=== PATIENT | male | born 1950 | race Caucasian/White ===

== ENCOUNTER 2017-02-12 17:08 | Emergency (ER) | payer OTHER ==
[~2017-02-12] VITALS: Ht 177.8 cm; Wt 109.1 kg
[~2017-02-12 17:08] MED LIST: ALBU1AER9 INH; CALC1TAB62 PO; CHOL20009 PO; GABA-113 PO; GLC/500 PO; METF500T PO; NIAC1TAB56 PO; OMEG10002 PO; OMEP20CA59 PO; RXC5 PO; SIMV20TA5 PO; SITA25TA PO; SULI200T PO; TNR25 PO
[2017-02-12 17:13] VITALS: TEMP 36.9; Ht 177.8 cm; Wt 109.1 kg
[2017-02-12] MEDS ORDERED: ALBUT/IPRATROP 3MG/0.5MG NEB 3 ML VIAL INH STA (17:38)
[2017-02-12] MEDS ORDERED: ASPI81TA28 PO (17:43)
[2017-02-12 18:05] LABS: BASO % 0.5 %; BASO ABS # 0.03 K/uL (0-0.2); COMPLETE YES; EOS % 1.8 %; HEMATOCRIT 40.9 % (42-52); IG% 0.2 %; LYMPH % 32.6 %; LYMPH ABS # 2.03 K/uL (1.2-3.4); MEAN CELL VOLUME 89.7 fL (80-100); MEAN CORPUSCULAR HGB CONC 35.7 g/dl (32-36); MEAN PLATELET VOLUME 9.4 fL (7.4-10.4); MONO % 21.5 %; NEUT % 43.4 %; PLATELET COUNT 166 K/uL (130-400); RED BLOOD COUNT 4.56 M/uL (4.7-6.1); WHITE BLOOD COUNT 6.23 K/uL (4.8-10.8)
[2017-02-12 18:17] LABS: PROTHROMBIN TIME (PATIENT) 10.7 SECONDS (9.0-12.0)
--- NOTE | 2017-02-12 18:20 | DIAGNOSTIC IMAGING REPORT ---
SINGLE VIEW CHEST CLINICAL HISTORY: Dyspnea. FINDINGS: An AP, portable, upright chest radiograph is compared to study dated 02/07/2016 and correlated with chest CT dated 08/09/2016. The examination is degraded by portable technique, large body habitus, and patient rotation. The heart is top normal for projection. The mediastinal contour is within normal limits. Chronic interstitial thickening is unchanged. No airspace consolidation or pleural effusion is identified. No pneumothorax is seen. The bony thorax is grossly intact. IMPRESSION: No active disease in the chest. Electronically signed by: Beto Brand M.D. 02/12/2017 6:18 PM Dictated Date/Time: 02/12/2017 6:17 PM
[2017-02-12 18:22] LABS: ALT/SGPT 36 U/L (12-78); BLOOD UREA NITROGEN 20 mg/dl (7-18); BUN/CREATININE RATIO 18.1 (10-20); CALCIUM 9.7 mg/dl (8.5-10.1); CARBON DIOXIDE 28 mmol/L (21-32); CHLORIDE 103 mmol/L (98-107); GLUCOSE 118 mg/dl (70-99); POTASSIUM 3.9 mmol/L (3.5-5.1); SODIUM 138 mmol/L (136-145)
[2017-02-12 18:27] LABS: ALB/GLOB RATIO 1.2 (0.9-2); ALKALINE PHOSPHATASE 56 U/L (45-117); AST/SGOT 23 U/L (15-37)
[2017-02-12] MEDS ORDERED: OPTIRAY 320 IV PRN (18:45)
--- NOTE | 2017-02-12 19:02 | DIAGNOSTIC IMAGING REPORT ---
CT ANGIOGRAM OF THE CHEST CLINICAL HISTORY: Dyspnea. COMPARISON STUDY: Chest x-ray dated 02/04/2017. Chest CT scans dated 08/09/2016, 01/10/2015, and 10/25/2013. TECHNIQUE: Following the IV administration of 102 cc of Optiray 320, CT angiogram of the chest was performed from the upper abdomen to the thoracic inlet utilizing the pulmonary embolus protocol. Images are reviewed in the axial, sagittal, and coronal planes. 3-D MIPS images are created and assessed. IV contrast was administered without complication. CT DOSE: 577.43 mGy.cm FINDINGS: Thyroid: Imaged portions of the thyroid gland are normal in size and attenuation. A 1.9 cm low-attenuation nodule is again suggested in the right lobe. Thoracic aorta: The thoracic aorta is normal in caliber and demonstrates standard 3-vessel arch anatomy. No dissection is seen. Pulmonary vasculature: The pulmonary trunk is normal in caliber. There are no filling defects identified in main, lobar, or segmental pulmonary branches to suggest pulmonary embolus. Heart: The heart is mildly enlarged and without pericardial effusion. Lungs and pleural spaces: Evaluation of the lung parenchyma is degraded by respiratory motion artifact. Postoperative change and suture material is again noted at the right lung base. A 2 mm nodule in the lingula seen on image #127 is unchanged dating back to 2012 and of doubtful significance. No new or concerning pulmonary nodule is identified. No airspace consolidation or pleural effusion is seen. Minimal dependent atelectasis is observed. The trachea and central airways appear clear. Mediastinum: There is no mediastinal lymphadenopathy Yadira: Clear. Axillae: There is no axillary lymphadenopathy. Upper abdomen: A small hiatal hernia is noted. There is evidence of hepatic steatosis. A 2.3 cm left adrenal adenoma is unchanged. Skeletal structures: The skeletal structures are osteopenic. There are healed right-sided rib fractures. No lytic or blastic bony lesions are seen. IMPRESSION: 1. There is no evidence of pulmonary embolus in the main, lobar, or segmental pulmonary arteries. 2. Cardiomegaly 3. There is no airspace consolidation or pleural effusion. 4. Postoperative change is again noted at the right lung base. 5. Hepatic steatosis. Electronically signed by: Beto Brand M.D. 02/12/2017 7:00 PM Dictated Date/Time: 02/12/2017 6:53 PM
[2017-02-12 19:12] VITALS: BP 122/87; PULSE 92; O2SAT 94
--- NOTE | 2017-02-12 19:14 | EMERGENCY ROOM VISIT NOTE ---
History Report prepared by Melany: Terri Patton Under the Supervision of: Dr. Reg Edgar D.O. First contact with patient: 17:34 Chief Complaint: RESPIRATORY PROBLEMS Stated Complaint: HARD TO BREATH, COUGH Nursing Triage Summary: pt started with cough yesterday, cont today, having some sob with it. cough non productive, no c/o cp History of Present Illness The patient is a 66 year old male who presents to the Emergency Room with complaints of persistent breathing difficulties that began today. The patient states that yesterday he started with a sore throat and a nonproductive cough. He states that he has a history of having nodules removed from his lungs one year ago, but denies any history of COPD or asthma. The patient states that he noticed left leg pain yesterday, but states that it had subsided. He denies any fever. 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 Source of History: patient Onset: today Position: other (global) Quality: other (breathing difficulties) Timing: other (persistent) Associated Symptoms: + cough, + sorethroat, No fevers Review of Systems See HPI for pertinent positives & negatives. A total of 10 systems reviewed and were otherwise negative. Past Medical & Surgical Medical Problems: (1) Diabetes mellitus (2) HTN (hypertension) (3) Hyperlipidemia (4) Mass of lung (5) Osteoarthritis of right knee Family History Diabetes mellitus Hypertension Social History Smoking Status: Former Smoker Alcohol Use: none Marital Status: Housing Status: lives with family Occupation Status: employed Current/Historical Medications Scheduled Aspirin (Aspirin Ec), 81 MG PO DAILY Atenolol (Atenolol), 25 MG PO QPM Calcium & Phosphorus W/ Vitami (Calcium), 2 TAB PO QPM Cholecalciferol (Vitamin D), 2,000 INTUNIT PO BID Gabapentin (Neurontin), 300 MG PO QPM Metformin Hcl (Glucophage), 500 MG PO QAM Metformin Hcl (Glucophage), 1,000 MG PO HS Niacin (Antihyperlipidemic) (Niacin Er), 1,000 MG PO HS [place]-3 Fatty Acids (Fish Oil), 3,000 MG PO HS Omeprazole (Prilosec), 20 MG PO HS Simvastatin (Zocor), 20 MG PO QPM Sitagliptin (Januvia), 100 MG PO QPM Allergies Coded Allergies: Penicillins (Verified Allergy, Severe, throat swelling, hives, 02/12/17) Fenofibrate (Verified Allergy, Unknown, HIVES, 02/12/17) Physical Exam Vital Signs Date Time Temp Pulse Resp B/P Pulse Ox O2 Delivery O2 Flow Rate FiO2 02/12/17 19:12 92 18 122/87 94 Room Air 02/12/17 18:02 100 02/12/17 17:33 Room Air 02/12/17 17:13 36.9 97 18 135/93 93 Room Air Physical Exam CONSTITUTIONAL/VITAL SIGNS: Reviewed / noted above. GENERAL: Non-toxic in appearance. INTEGUMENTARY: Warm, dry, and [place]. HEAD: Normocephalic. EYES: without scleral icterus or trauma. ENT/OROPHARYNX: clear and moist. LYMPHADENOPATHY/NECK: Is supple without lymphadenopathy or meningismus. RESPIRATORY: Lungs clear and equal. CARDIOVASCULAR: Regular rate and rhythm. GI/ABDOMEN: Soft and nontender. No organomegaly or pulsatile mass. No rebound or guarding. Normal bowel sounds. EXTREMITIES: Warm and well perfused. BACK: No CVA tenderness. NEUROLOGICAL: Intact without focal deficits. PSYCHIATRIC: normal affect. MUSCULOSKELETAL: Normally developed with good muscle tone. Medical Decision & Procedures ER Provider Diagnostic Interpretation: X ray results and stated below per my interpretation and radiology interpretation. SINGLE VIEW CHEST CLINICAL HISTORY: Dyspnea. FINDINGS: An AP, portable, upright chest radiograph is compared to study dated 02/07/2016 and correlated with chest CT dated 08/09/2016. The examination is degraded by portable technique, large body habitus, and patient rotation. The heart is top normal for projection. The mediastinal contour is within normal limits. Chronic interstitial thickening is unchanged. No airspace consolidation or pleural effusion is identified. No pneumothorax is seen. The bony thorax is grossly intact. IMPRESSION: No active disease in the chest. Electronically signed by: Beto Brand M.D. 02/12/2017 6:18 PM Dictated Date/Time: 02/12/2017 6:[address] results as stated below per my review and radiologist interpretation: CT ANGIOGRAM OF THE CHEST CLINICAL HISTORY: Dyspnea. COMPARISON STUDY: Chest x-ray dated 02/04/2017. Chest CT scans dated 08/09/2016, 01/10/2015, and 10/25/2013. TECHNIQUE: Following the IV administration of 102 cc of Optiray 320, CT angiogram of the chest was performed from the upper abdomen to the thoracic inlet utilizing the pulmonary embolus protocol. Images are reviewed in the axial, sagittal, and coronal planes. 3-D MIPS images are created and assessed. IV contrast was administered without complication. CT DOSE: 577.43 mGy.cm FINDINGS: Thyroid: Imaged portions of the thyroid gland are normal in size and attenuation. A 1.9 cm low-attenuation nodule is again suggested in the right lobe. Thoracic aorta: The thoracic aorta is normal in caliber and demonstrates standard 3-vessel arch anatomy. No dissection is seen. Pulmonary vasculature: The pulmonary trunk is normal in caliber. There are no filling defects identified in main, lobar, or segmental pulmonary branches to suggest pulmonary embolus. Heart: The heart is mildly enlarged and without pericardial effusion. Lungs and pleural spaces: Evaluation of the lung parenchyma is degraded by respiratory motion artifact. Postoperative change and suture material is again noted at the right lung base. A 2 mm nodule in the lingula seen on image #127 is unchanged dating back to 2012 and of doubtful significance. No new or concerning pulmonary nodule is identified. No airspace consolidation or pleural effusion is seen. Minimal dependent atelectasis is observed. The trachea and central airways appear clear. Mediastinum: There is no mediastinal lymphadenopathy Yadira: Clear. Axillae: There is no axillary lymphadenopathy. Upper abdomen: A small hiatal hernia is noted. There is evidence of hepatic steatosis. A 2.3 cm left adrenal adenoma is unchanged. Skeletal structures: The skeletal structures are osteopenic. There are healed right-sided rib fractures. No lytic or blastic bony lesions are seen. IMPRESSION: 1. There is no evidence of pulmonary embolus in the main, lobar, or segmental pulmonary arteries. 2. Cardiomegaly 3. There is no airspace consolidation or pleural effusion. 4. Postoperative change is again noted at the right lung base. 5. Hepatic steatosis. Electronically signed by: Beto Brand M.D. 02/12/2017 7:00 PM Dictated Date/Time: 02/12/2017 6:53 PM Laboratory Results 02/12/17 17:45 Red Blood Count 4.56, Mean Corpuscular Volume 89.7, Mean Corpuscular Hemoglobin 32.0, Mean Corpuscular Hemoglobin Concent 35.7, Mean Platelet Volume 9.4, Neutrophils (%) (Auto) 43.4, Lymphocytes (%) (Auto) 32.6, Monocytes (%) (Auto) 21.5, Eosinophils (%) (Auto) 1.8, Basophils (%) (Auto) 0.5, Neutrophils # (Auto ) 2.71, Lymphocytes # (Auto) 2.03, Monocytes # (Auto) 1.34, Eosinophils # (Auto ) 0.11, Basophils # (Auto) 0.03 02/12/17 17:45 Test 02/12/17 17:45 White Blood Count 6.23 K/uL (4.8-10.8) Red Blood Count 4.56 M/uL (4.7-6.1) Hemoglobin 14.6 g/dL (14.0-18.0) Hematocrit 40.9 % (42-52) Mean Corpuscular Volume 89.7 fL (80-100) Mean Corpuscular Hemoglobin 32.0 pg (25-34) Mean Corpuscular Hemoglobin Concent 35.7 g/dl (32-36) Platelet Count 166 K/uL (130-400) Mean Platelet Volume 9.4 fL (7.4-10.4) Neutrophils (%) (Auto) 43.4 % Lymphocytes (%) (Auto) 32.6 % Monocytes (%) (Auto) 21.5 % Eosinophils (%) (Auto) 1.8 % Basophils (%) (Auto) 0.5 % Neutrophils # (Auto) 2.71 K/uL (1.4-6.5) Lymphocytes # (Auto) 2.03 K/uL (1.2-3.4) Monocytes # (Auto) 1.34 K/uL (0.11-0.59) Eosinophils # (Auto) 0.11 K/uL (0-0.5) Basophils # (Auto) 0.03 K/uL (0-0.2) RDW Standard Deviation 44.5 fL (36.4-46.3) RDW Coefficient of Variation 13.7 % (11.5-14.5) Immature Granulocyte % (Auto) 0.2 % Immature Granulocyte # (Auto) 0.01 K/uL (0.00-0.02) Prothrombin Time 10.7 SECONDS (9.0-12.0) Prothromb Time International Ratio 1.0 (0.9-1.1) Activated Partial Thromboplast Time 25.4 SECONDS (21.0-31.0) Partial Thromboplastin Ratio 1.0 D-Dimer 750 ug/L FEU (0-500) Anion Gap 7.0 mmol/L (3-11) Est Creatinine Clear Calc Drug Dose 83.9 ml/min Estimated GFR () 81.8 Estimated GFR (Non- 70.6 BUN/Creatinine Ratio 18.1 (10-20) Calcium Level 9.7 mg/dl (8.5-10.1) Total Bilirubin 0.6 mg/dl (0.2-1) Aspartate Amino Transf (AST/SGOT) 23 U/L (15-37) Alanine Aminotransferase (ALT/SGPT) 36 U/L (12-78) Alkaline Phosphatase 56 U/L (45-117) Total Creatine Kinase 125 U/L (39-308) Creatine Kinase MB 1.2 ng/ml (0.5-3.6) Creatine Kinase MB Ratio 1.0 (0-3.0) Troponin I < 0.015 ng/ml (0-0.045) Total Protein 7.6 gm/dl (6.4-8.2) Albumin 4.1 gm/dl (3.4-5.0) Globulin 3.5 gm/dl (2.5-4.0) Albumin/Globulin Ratio 1.2 (0.9-2) Laboratory results as stated above per my review. Medications Administered Medications (Trade) Dose Ordered Sig/Dave Route Start Time Stop Time Status Last Admin Dose Admin Albuterol/ Ipratropium (Duoneb) 3 ml NOW STAT INH 02/12/17 17:38 02/12/17 17:40 DC 02/12/17 17:47 3 ML ECG Indication: SOB/dyspnea Rate (beats per minute): 92 Rhythm: normal sinus Findings: no acute ischemic change, no ectopy ED Course 1734: Previous medical records were reviewed. The patient was evaluated in room C8. A complete history and physical examination was performed. 1737: Ordered DuoNeb 3 ml INH. 1915: I reevaluated the patient and he is resting comfortably. I discussed the exam findings with him and I discussed the treatment plan. He verbalized complete understanding and agreement. The patient is ready to go home. Medical Decision The differential was considered includes acute myocardial infarction, acute coronary syndrome, myocarditis, pericarditis, pericardial effusions /tamponad, esophageal perforation, pulmonary embolism, pneumonia, pneumothorax, cardiomyopathy, congestive heart, anemia , COPD/asthma exacerbation. This is a 66-year-old male who presents to the ED with a chief complaint of shortness of breath. He has had a cough and some sore throat as well as some breathing trouble for the past 24 hours. He has no other significant symptoms. His vital signs are normal. Physical exam was also unremarkable. EKG shows a normal sinus rhythm at a rate of 92. CBC is unremarkable. D-dimer is elevated. Chest x-ray was negative for acute disease. Troponin is negative. CT scan of the chest did not show acute disease. Patient was treated with a DuoNeb treatment. He was told the results. He felt to be stable for discharge. Impression Primary Impression: Dyspnea Scribe Attestation The scribe's documentation has been prepared under my direction and personally reviewed by me in its entirety. I confirm that the note above accurately reflects all work, treatment, procedures, and medical decision making performed by me. Departure Information Dispostion Home / Self-Care Referrals Wyatt Rossi D.O.Int.Med. (PCP) Forms HOME CARE DOCUMENTATION FORM, IMPORTANT VISIT INFORMATION, WORK / SCHOOL INSTRUCTIONS Patient Instructions My [facility] Additional Instructions Follow-up with your doctor for further care and evaluation in 1-2 days. Return to the emergency department for worsening or new symptoms or any concerns. You have been examined and treated today on an emergency basis only. This is not a substitute for, or an effort to provide, complete comprehensive medical care. It is impossible to recognize and treat all injuries or illnesses in a single emergency department visit. It is therefore important that you follow up closely with your doctor. Call as soon as possible for an appointment.
[2017-04-17] MEDS ORDERED: ATEN-171 PO (11:07)
[2017-04-17] MEDS ORDERED: CLN200 PO (11:07)
[2017-04-17] MEDS ORDERED: ATOR-22 PO (11:07)
[2017-04-17] MEDS ORDERED: OMEG10007 PO (11:08)
[2017-04-17] MEDS ORDERED: NAPR1TAB9 PO (11:09)
[2017-04-17] MEDS ORDERED: VNTHFA/IN INH (11:10)
[2017-04-17] MEDS ORDERED: CLR10 PO (11:10)
[2017-05-18] MEDS ORDERED: ASPEC325 PO (08:49)
== END 2017-02-12 19:24 | disposition home or self-care (01) ==
LOC: C.EDB 17:08 → C.EDC 19:24
DX: R06.00 Dyspnea, unspecified (principal); E11.9 Type 2 diabetes mellitus without complications; I10 Essential (primary) hypertension; E78.5 Hyperlipidemia, unspecified; Z79.82 Long term (current) use of aspirin; Z87.891 Personal history of nicotine dependence

== ENCOUNTER → 2017-03-06 | Outpatient (CLI) | payer OTHER ==
[~2017-03-06] MED LIST changes: -ALBU1AER9 INH; +ASPEC325 PO; +ASPI81TA28 PO; +ATEN-171 PO; +ATOR-22 PO; +CLN200 PO; +CLR10 PO; +NAPR1TAB9 PO; +OMEG10007 PO; -RXC5 PO; -SULI200T PO; +VNTHFA/IN INH
[2017-03-06 13:58] LABS: ESTIMATED AVERAGE GLUCOSE 151 mg/dl; HA1C FLAG Normal (Normal)
[2017-03-06 15:55] LABS: ALT/SGPT 43 U/L (12-78); AST/SGOT 29 U/L (15-37); BLOOD UREA NITROGEN 16 mg/dl (7-18); BUN/CREATININE RATIO 14.3 (10-20); CALCIUM 9.8 mg/dl (8.5-10.1); CARBON DIOXIDE 29 mmol/L (21-32); CHLORIDE 104 mmol/L (98-107); GLUCOSE 119 mg/dl (70-99); POTASSIUM 3.9 mmol/L (3.5-5.1); SODIUM 139 mmol/L (136-145)
[2017-03-06 15:58] LABS: ALB/GLOB RATIO 1.2 (0.9-2); ALKALINE PHOSPHATASE 59 U/L (45-117)
[2017-03-06 19:11] LABS: RATIO 8.5 mcg/mg (0-30.0)
== END | disposition home or self-care (01) ==
LOC: C.LABBC 11:21
PROVIDERS: ATTEND Family Medicine
DX: E11.9 Type 2 diabetes mellitus without complications (principal); I10 Essential (primary) hypertension

== ENCOUNTER 2017-05-17 05:11 | Inpatient (IN) | payer OTHER ==
[2017-04-17 11:11] VITALS: BMI 34.0
--- NOTE | 2017-04-17 11:33 | PAT Medication Instructions ---
Service Date April 17, 2017. Current Home Medication List Albuterol Hfa (Ventolin Hfa), 2 PUFFS INH DAILY PRN for RN Aspirin (Aspirin Ec), 81 MG PO HS Atenolol/Chlorthalidone (Tenoretic 50 Mg/25 Mg), 0.5 TAB PO QPM Atorvastatin (Lipitor), 20 MG PO QPM Calcium & Phosphorus W/ Vitami (Calcium), 1 TAB PO QPM/HS Cholecalciferol (Vitamin D), 2,000 INTUNIT PO QPM Fish Oil ([place]-3), 3 CAP PO HS Gabapentin (Neurontin), 300 MG PO QPM Loratadine (Claritin), 10 MG PO QAM Metformin Hcl (Glucophage), 500 MG PO QAM Metformin Hcl (Glucophage), 1,000 MG PO HS Naproxen (Aleve), 440 MG PO PRN Niacin (Antihyperlipidemic) (Niacin Er), 1,000 MG PO HS Omeprazole (Prilosec), 20 MG PO HS Sitagliptin (Januvia), 100 MG PO QPM Sulindac (Sulindac), 200 MG PO QPM Medication Instructions For Your Scheduled Surgery - Hold the following medications 2 weeks prior to surgery: Fish Oil ([place]-3), 3 CAP PO HS - Hold the following medications 48 hours prior to surgery: Metformin Hcl (Glucophage), 500 MG PO QAM Metformin Hcl (Glucophage), 1,000 MG PO HS - Hold the following medications 24 hours prior to surgery: Niacin (Antihyperlipidemic) (Niacin Er), 1,000 MG PO HS - Hold the following medications the morning of surgery: Sulindac (Sulindac), 200 MG PO QPM (otherwise okay to continue per surgeon) Naproxen (Aleve), 440 MG PO PRN (otherwise okay to continue per surgeon) Loratadine (Claritin), 10 MG PO QAM - Take the following medications the morning of surgery if needed: Albuterol Hfa (Ventolin Hfa), 2 PUFFS INH DAILY PRN (use if needed; BRING TO HOSPITAL) - Take the following medications as scheduled the night before surgery: Albuterol Hfa (Ventolin Hfa), 2 PUFFS INH DAILY PRN for RN Aspirin (Aspirin Ec), 81 MG PO HS Atenolol/Chlorthalidone (Tenoretic 50 Mg/25 Mg), 0.5 TAB PO QPM Atorvastatin (Lipitor), 20 MG PO QPM Calcium & Phosphorus W/ Vitami (Calcium), 1 TAB PO QPM/HS Cholecalciferol (Vitamin D), 2,000 INTUNIT PO QPM Sitagliptin (Januvia), 100 MG PO QPM Sulindac (Sulindac), 200 MG PO QPM Naproxen (Aleve), 440 MG PO PRN Omeprazole (Prilosec), 20 MG PO HS Gabapentin (Neurontin), 300 MG PO QPM Nothing to eat or drink after midnight If you have any questions please call us at [phone] or [phone] or [phone]
[2017-04-17 13:08] LABS: BASO % 0.4 %; BASO ABS # 0.02 K/uL (0-0.2); BUN/CREATININE RATIO 15.5 (10-20); COMPLETE YES; CREATININE 1.3 mg/dl (0.60-1.40); HEMATOCRIT 40.8 % (42-52); IG% 0.2 %; LYMPH % 30.9 %; LYMPH ABS # 1.58 K/uL (1.2-3.4); MEAN CELL VOLUME 91.1 fL (80-100); MEAN CORPUSCULAR HEMOGLOBIN 30.8 pg (25-34); MEAN CORPUSCULAR HGB CONC 33.8 g/dl (32-36); MEAN PLATELET VOLUME 9.3 fL (7.4-10.4); MONO % 12.1 %; NEUT % 55.4 %; PLATELET COUNT 169 K/uL (130-400); POTASSIUM 4.3 mmol/L (3.5-5.1); RED BLOOD COUNT 4.48 M/uL (4.7-6.1); WHITE BLOOD COUNT 5.12 K/uL (4.8-10.8)
[2017-04-17 13:11] LABS: CALCIUM 10.3 mg/dl (8.5-10.1)
[2017-04-17 13:21] LABS: PROTHROMBIN TIME (PATIENT) 10.7 SECONDS (9.0-12.0)
[2017-04-17 13:26] LABS: URINE APPEARANCE CLOUDY (CLEAR); URINE BILIRUBIN NEG (NEG); URINE COLOR YELLOW; URINE NITRITE NEG (NEG); URINE PH 6.5 (4.5-7.5); URINE SPECIFIC GRAVITY 1.023 (1.000-1.030); UROBILINOGEN NEG (NEG)
[2017-04-17 13:41] LABS: MANUAL MICROSCOPIC REQUIRED? NO; REVIEW REQ? NO
[~2017-05-17] VITALS: Ht 177.8 cm; Wt 107.5 kg
[2017-05-17] VITALS (10 sets, daily range): BP systolic 97–129; BP diastolic 62–86; PULSE 62–77; TEMP 36.2–36.8; O2SAT 93–98; Ht 177.8 cm; Wt 107.5 kg
[~2017-05-17 05:11] MED LIST changes: -ASPEC325 PO; -OMEG10002 PO; -SIMV20TA5 PO; -TNR25 PO
[2017-05-17] MEDS ORDERED: GABAPENTIN 300 MG CAP PO SCH ×2 (06:00→21:00)
[2017-05-17] MEDS ORDERED: LACTATED RINGER'S 1000ML IV SCH (06:00)
[2017-05-17] MEDS ORDERED: FAMOTIDINE 20 MG TAB PO SCH (06:00)
[2017-05-17] MEDS ORDERED: ACETAMINOPHEN 500 MG TAB PO SCH (06:00)
[2017-05-17] MEDS ORDERED: TRANEXAMIC ACID INJ 1,000 MG in SODIUM CHLORIDE 0.9% 100ML 100 ML IV SCH (06:00)
[2017-05-17] MEDS ORDERED: VANCOMYCIN INJ 1,600 MG in SODIUM CHLORIDE 0.9% 500ML 500 ML IV SCH (06:00)
[2017-05-17] MEDS ORDERED: LACTATED RINGER'S 500 ML IV SCH (06:00)
[2017-05-17] MEDS ORDERED: ROPIVACAINE 5MG/ML 30 ML 150 MG, BUPIVACAINE/EPINEPHR 0.5% MPF 30 ML, KETOROLAC TROMETH... INFIL SCH ×7 (06:00)
[2017-05-17] MEDS ORDERED: LACTATED RINGER'S 1000ML 1,000 ML IV SCH (06:00)
[2017-05-17] MEDS ORDERED: ORTHO JOINT ANESTHETIC ONE (06:27)
[2017-05-17] MEDS ORDERED: BACITRACIN 50000 UNIT VIAL ONE (06:27)
[2017-05-17] MEDS ORDERED: BUPIVACAINE 0.25% 30 ML VIAL ONE (06:35)
[2017-05-17] MEDS ORDERED: BUPIVACAINE 0.5 % 5 MG/1 ML PF 10ML VIAL ONE (06:35)
--- NOTE | 2017-05-17 06:37 | History & Physical Bridge Note ---
H&P Re-Evaluation Bridge Note: I have examined the patient, reviewed the History & Physical and in the interval since the performance of the History & Physical I have noted the following changes of clinical significance: No changes noted
--- NOTE | 2017-05-17 06:38 | History and Physical ---
History & Physical Date May 17, 2017. Chief Complaint Osteoarthritis Left Knee History of Present Illness The patient is a 66 year old male with complaints of chronic L knee pain Past Medical/Surgical History Medical Problems: (1) Diabetes mellitus (2) HTN (hypertension) (3) Hyperlipidemia (4) Mass of lung (5) Osteoarthritis of right knee Additional History Hepatic Disease: No Endocrine Disorder: No Kidney Disease: No Hypertension: No Heart Disease: No Bleeding Tendencies: No Infectious Diseases: No Allergies Coded Allergies: Penicillins (Verified Allergy, Severe, throat swelling, hives, 05/17/17) Fenofibrate (Verified Allergy, Unknown, HIVES, 05/17/17) Home Medications Scheduled Aspirin (Aspirin Ec), 81 MG PO HS Atenolol/Chlorthalidone (Tenoretic 50 Mg/25 Mg), 0.5 TAB PO QPM Atorvastatin (Lipitor), 20 MG PO QPM Calcium & Phosphorus W/ Vitami (Calcium), 1 TAB PO QPM/HS Cholecalciferol (Vitamin D), 2,000 INTUNIT PO QPM Fish Oil ([place]-3), 3 CAP PO HS Gabapentin (Neurontin), 300 MG PO QPM Loratadine (Claritin), 10 MG PO QAM Metformin Hcl (Glucophage), 500 MG PO QAM Metformin Hcl (Glucophage), 1,000 MG PO HS Naproxen (Aleve), 440 MG PO PRN Niacin (Antihyperlipidemic) (Niacin Er), 1,000 MG PO HS Omeprazole (Prilosec), 20 MG PO HS Sitagliptin (Januvia), 100 MG PO QPM Sulindac (Sulindac), 200 MG PO QPM Scheduled PRN Albuterol Hfa (Ventolin Hfa), 2 PUFFS INH DAILY PRN for RN Physical Examination Skin: warm/dry, no rash Eyes: normal inspection, EOMI, sclerae normal ENT: normal ENT inspection, pharynx normal Head: normocephalic, atraumatic Neck: supple, no adenopathy, trachea midline Respiratory/Chest: lungs clear, normal breath sounds, no respiratory distress Cardiovascular: regular rate, rhythm, no edema, no murmur Abdomen / GI: normal bowel sounds, non tender Back: normal inspection Extremities: normal inspection, normal range of motion Neurologic/Psych: no motor/sensory deficits, alert, normal reflexes, oriented x 3 Diagnosis Osteoarthritis Left Knee Plan of Treatment Left Total Knee
[2017-05-17] MEDS ORDERED: MIDAZOLAM HCL 1 MG/ML 2ML VIAL ONE ×2 (06:46→07:13)
[2017-05-17] MEDS ORDERED: PROPOFOL IV EMULSION 10 MG/ML 20 ML VIAL IV ONE (07:28)
[2017-05-17] MEDS ORDERED: ONDANSETRON INJ 2 MG/ML 2 ML VIAL IV PRN ×2 (07:30→08:45)
[2017-05-17] MEDS ORDERED: EpHEDrine SULFATE INJ 50 MG/ML AMP IV PRN (07:30)
[2017-05-17] MEDS ORDERED: ATROPINE SULFATE 0.1 MG/ML 5ML SYR IV PRN (07:30)
[2017-05-17] MEDS ORDERED: EpHEDrine SULFATE 50MG/5ML SYR ONE (08:24)
[2017-05-17] MEDS ORDERED: PHENYLEPHRINE 100MCG/ML 5ML SYR ONE (08:24)
[2017-05-17] MEDS ORDERED: MAGNESIUM HYDROXIDE SUSP 30 ML UDC PO PRN (08:45)
[2017-05-17] MEDS ORDERED: MoRPHine SULFATE 2 MG/ML CARP IV PRN (08:45)
[2017-05-17] MEDS ORDERED: GLUCOSE 40% GEL 15 GM TUBE PO PRN (08:45)
[2017-05-17] MEDS ORDERED: SOD PHOSPHATE/SOD BIPHOSPHATE ENEMA 132 ML BTL PR PRN (08:45)
[2017-05-17] MEDS ORDERED: BISACODYL 10 MG SUPP PR PRN (08:45)
[2017-05-17] MEDS ORDERED: ALBUTEROL HFA 8 GM INHALER INH PRN (08:45)
[2017-05-17] MEDS ORDERED: GLUCAGON FOR INJ 1 MG VIAL SQ PRN (08:45)
[2017-05-17] MEDS ORDERED: DEXTROSE 50% 50 ML SYR IV PRN (08:45)
[2017-05-17] MEDS ORDERED: GLUCOSE 10 TABS/TUBE PO PRN (08:45)
[2017-05-17] MEDS ORDERED: SILVER SULFADIAZINE 1% CR 50 GM JAR EXT PRN (08:45)
[2017-05-17] MEDS ORDERED: METOCLOPRAMIDE HCL INJ 5 MG/ML 2 ML VIAL IV PRN (08:45)
[2017-05-17] MEDS ORDERED: OXYCODONE HCL IR 5 MG TAB (IMMEDIATE RELEASE) PO PRN (08:45)
[2017-05-17] MEDS ORDERED: PHARMACY GLYCEMIC MGMT CONSULT PRN (09:28)
--- NOTE | 2017-05-17 09:43 | DIAGNOSTIC IMAGING REPORT ---
LEFT KNEE 1 OR 2 VIEWS ROUTINE CLINICAL HISTORY: AP/LATERAL IN PACU LEFT KNEE joint replacement COMPARISON: None. DISCUSSION: Anatomic alignment status post total left knee replacement. Good contact between prosthetic and underlying bone. Surgical drains are in position. There is no evidence for soft tissue swelling. IMPRESSION: Anatomic alignment status post total left knee replacement. Electronically signed by: Prosper Forte M.D. 05/17/2017 9:41 AM Dictated Date/Time: 05/17/2017 9:41 AM
--- NOTE | 2017-05-17 09:45 | Anesthesiology Progress Note ---
Anesthesia Post Op Note Date & Time May 17, 2017 at 09:44 Vital Signs Pain Intensity: 0 Vital Signs Past 12 Hours Date Time Temp Pulse Resp B/P (MAP) Pulse Ox O2 Delivery O2 Flow Rate FiO2 05/17/17 09:30 68 12 102/65 96 Nasal Cannula 2 05/17/17 09:20 71 22 104/65 97 Nasal Cannula 2 05/17/17 09:10 70 18 93/63 97 Nasal Cannula 2 05/17/17 09:00 70 15 103/61 98 Mask 10 05/17/17 08:54 36.1 74 20 94/58 94 Mask 10 05/17/17 05:54 36.8 70 18 128/79 96 Room Air Notes Mental Status: alert / awake / arousable, participated in evaluation Pt Amnestic to Procedure: Yes Nausea / Vomiting: adequately controlled Pain: adequately controlled Airway Patency, RR, SpO2: stable & adequate BP & HR: stable & adequate Hydration State: stable & adequate Neuraxial Anesthesia: was administered, sensory block is resolving Anesthetic Complications: no major complications apparent
--- NOTE | 2017-05-17 09:56 | Pharmacy Progress Note ---
Glycemic Control Intl Consult Date of Service May 17, 2017. Scope Glycemic Pharmacist consulted by Dr Gray on 05/17/17 for glycemic control and to write orders per [facility] inpatient glycemic control protocol Objective Weight (Kilograms): 107.5 Accuchecks BSG (last 24hrs): Test 05/17/17 06:31 05/17/17 09:11 Bedside Glucose 149 mg/dl (70-99) 132 mg/dl (70-99) Recent Pertinent Medications Outpatient Anti-diabetic Regimen: * metformin 500 mg QAM + 1000 mg QHS * januvia 100 mg QAM * A1c = 6.9 % 03/06/17 Risk Factors for Insulin Resistance: * Recent Surgery * Diet Assessment & Plan ASSESSMENT: * 66 yo M admitted s/p L TKA, POD#0 * Pt is maintained on oral antidiabetic agents as an outpatient * Oral agents are not recommended for inpatient use d/t drug interactions, changing PO intake, and difficulty titrating for acute hyper/hypoglycemia. ADA recommends re-initiating outpatient oral agents 1-2 days prior to discharge if/ when appropriate if they were held on admission. * Will hold oral agents for admission and utilize SQ Novolog only * Will initiate weight based insulin dosing for insulin robert patient and titrate based on BSG trends * Hold off on basal insulin as patient did not receive steroids * If BSGs remain stable and patient tolerates diet today, add back orals tomorrow and loosen Novolog coverage to prepare for discharge * ADA & AACE recommend a goal blood sugar range 140-180 mg/dl for the majority of critically ill & non-critically ill patients. However, more stringent targets may be selected in individual cases. Will utilize more stringent goal of 110-140mg/dl based on patient age & comorbidities. Additionally, tighter glycemic control is warranted to facilitate wound/infection healing. PLAN FOR INPATIENT GLYCEMIC CONTROL: * Hold outpatient oral diabetes medications today * Add back Metformin and Januvia 05/18 if BSGs stable and patient tolerates diet * Correctional Insulin with NOVOLOG per scale ACHS * Goal Range: Low 110 mg/dL - High 140 mg/dL * Correction Factor: 30 mg/dL/unit * Nutritional / Prandial insulin per carb ratio of 1 unit per 12 grams CHO consumed * Please note that the plan above was derived based on current level of insulin resistance and hospital stress. These recommendations are appropriate for inpatient admission only. Plan of care upon discharge will need to be reassessed to avoid potential outpatient hypo/hyperglycemia. Thank you.
[2017-05-17] MEDS: SODIUM CHLORIDE 0.9% 1000ML 1,000 ML IV SCH ×2 (10:42→18:44)
[2017-05-17] MEDS: DOCUSATE SODIUM 100 MG CAP PO SCH ×2 (12:22→20:58)
[2017-05-17] MEDS: PANTOprazole SOD 40 MG TAB PO SCH (12:22)
[2017-05-17] MEDS: LORATADINE 10 MG TAB PO SCH (12:22)
[2017-05-17] MEDS: INSULIN ASPART 100 UNITS/ML 3 ML PEN SC SCH ×3 (12:31→21:06)
--- NOTE | 2017-05-17 12:53 | [facility] Post Operative Brief Note ---
Immediate Operative Summary Operative Date May 17, 2017. Pre-Operative Diagnosis Osteoarthritis Left Knee Post-Operative Diagnosis Osteoarthritis Left Knee Procedure(s) Performed Left total knee arthroplasty Surgeon Dr Gray Franchise Manager Surgeon(s) Kahlil Kraus Estimated Blood Loss 50cc Findings as above Specimens A. Left knee bone and tissue Complication(s) None Disposition Recovery Room / PACU
[2017-05-17] MEDS: KETOROLAC TROMETHAMINE 30 MG/ML VIAL IV. SCH ×2 (13:15→20:01)
[2017-05-17] MEDS: ACETAMINOPHEN IV 1,000 MG in EMPTY BAG 0 ML IV SCH ×2 (13:25→21:41)
[2017-05-17] MEDS: CLINDAMYCIN IV 600 MG in DEXTROSE 5% 50ML 50 ML IV SCH ×2 (16:11→23:45)
[2017-05-17] MEDS: ASPIRIN 325 MG ECTAB PO SCH (20:59)
[2017-05-17] MEDS ORDERED: CHOLECALCIFEROL 1000 INTER.UNIT TAB PO SCH (21:00)
[2017-05-17] MEDS ORDERED: SENNA 8.6 MG TAB PO SCH (21:00)
[2017-05-17] MEDS ORDERED: ATORVASTATIN 20 MG TAB PO SCH (21:00)
[2017-05-17] MEDS ORDERED: CHLORTHALIDONE 25 MG TAB PO SCH (21:00)
[2017-05-17] MEDS ORDERED: NIASPAN 500 MG TABCR PO SCH (21:00)
[2017-05-18] MEDS: KETOROLAC TROMETHAMINE 30 MG/ML VIAL IV. SCH ×3 (02:03→13:35)
[2017-05-18 03:19] VITALS: BP 112/65; PULSE 64; TEMP 36.8; O2SAT 95
[2017-05-18] MEDS: ACETAMINOPHEN IV 1,000 MG in EMPTY BAG 0 ML IV SCH ×2 (05:12→13:36)
[2017-05-18] MEDS: SODIUM CHLORIDE 0.9% 1000ML 1,000 ML IV SCH (05:12)
[2017-05-18 06:31] LABS: HEMATOCRIT 31.5 % (42-52); MEAN CELL VOLUME 90.5 fL (80-100); MEAN CORPUSCULAR HEMOGLOBIN 31.3 pg (25-34); MEAN CORPUSCULAR HGB CONC 34.6 g/dl (32-36); MEAN PLATELET VOLUME 9.5 fL (7.4-10.4); PLATELET COUNT 135 K/uL (130-400); RED BLOOD COUNT 3.48 M/uL (4.7-6.1); WHITE BLOOD COUNT 9.91 K/uL (4.8-10.8)
[2017-05-18 07:06] LABS: BUN/CREATININE RATIO 16.5 (10-20); CALCIUM 8.7 mg/dl (8.5-10.1); CREATININE 1.1 mg/dl (0.60-1.40); POTASSIUM 3.9 mmol/L (3.5-5.1)
[2017-05-18 07:35] VITALS: BP 125/78; PULSE 63; TEMP 36.3; O2SAT 94
[2017-05-18] MEDS ORDERED: METFORMIN HCL 500 MG TAB PO SCH ×2 (08:30→17:45)
[2017-05-18] MEDS: PANTOprazole SOD 40 MG TAB PO SCH (08:33)
[2017-05-18] MEDS: DOCUSATE SODIUM 100 MG CAP PO SCH (08:33)
[2017-05-18] MEDS: LORATADINE 10 MG TAB PO SCH (08:33)
[2017-05-18] MEDS: ASPIRIN 325 MG ECTAB PO SCH (08:34)
[2017-05-18] MEDS: INSULIN ASPART 100 UNITS/ML 3 ML PEN SC SCH ×2 (08:45→12:45)
[2017-05-18] MEDS ORDERED: ASPEC325 PO (08:49)
--- NOTE | 2017-05-18 08:51 | Discharge Instructions ---
Discharge Instructions Date of Service May 18, 2017. Admission Reason for Admission: Left Knee Degenerative Joint Disease Discharge Discharge Diagnosis / Problem: Left Total Knee Discharge Goals Goal(s): Decrease discomfort, Improve function Activity Recommendations Activity Limitations: as noted below . Instructions / Follow-Up Instructions / Follow-Up Activity and Therapy Recommendations: * If you are using [facility] then Physical Therapy will be provided until they feel you are ready to start Outpatient Physical Therapy. If you are not using a Home Health agency then Outpatient Physical Therapy should start about 3-5 days from your day of surgery. Therapy will last about 6-10 weeks * It is important not to put a pillow under your knee when you are relaxing or sleeping. It is just as important to make sure you are getting your knee perfectly straight as it is to regain your knee bend. * You were shown a series of exercises in the hospital. Do these exercises three times each day including the exercises you were shown in physical therapy. * Get up and walk several times each day. For the first four weeks, try not to stand or walk for more than one hour at a time. If you do stand or walk for more than one hour, you will not hurt anything, but your leg will likely swell. * As you feel comfortable, you may change from the walker or crutches to a cane and then to independent walking. Medications: * Narcotic You will likely be sent home from the hospital with a prescription for the narcotic pain medication that worked best throughout your stay. * Aspirin Most patients will be required to take Aspirin 325mg twice a day for 6 weeks after surgery. This is obtained [id number] and a prescription is not necessary. * Other medications may be prescribed for specific circumstances. If you have any questions, please call the office at . * Resume previous home medications unless otherwise instructed TEDs/Elastic Stockings: The white elastic stockings help limit swelling and prevent blood clots from forming in your legs.~ The more you wear them, the more they work. Wear them for six weeks. Showering: You may shower 5 days from the day of surgery. Let the soapy shower water run over the incision. Do not scrub or soak the incision. Things To Watch For: * Drainage from the incision site that occurs more than one week after your surgery. * Increased redness at the incision site. * Fever above 102 degrees Fahrenheit. * Unusual chest pain or shortness of breath. * Call [facility] at with any of the above problems Follow-Up Visit: Follow-up with Dr. Gray 2-3 weeks after your day of surgery. An appointment was probably scheduled when you signed-up for surgery in the office. If you have any questions call Office Instructions: More detailed instructions as well as Frequently Asked Questions were provided in a folder by our office when you signed-up for surgery. Please review these instructions when you get home. If you have any further questions or concerns, please feel free to call the office at [phone] Current Hospital Diet Patient's current hospital diet: Diabetes Type 2 Diet Discharge Diet Recommended Diet: Diabetes Type 2 Diet Procedures Procedures Performed: Left total knee arthroplasty Pending Studies Studies pending at discharge: no Laboratory Results Hemoglobin A1c Test 03/06/17 11:24 Range/Units Estimated Average Glucose 151 mg/dl Hemoglobin A1c 6.9 H 4.5-5.6 % Medical Emergencies . Who to Call and When: Medical Emergencies: If at any time you feel your situation is an emergency, please call 911 immediately. . Non-Emergent Contact Non-Emergency issues call your: Surgeon Call Non-Emergent contact if: wound has increased drainage, wound has increased redness . "Provider Documentation" section prepared by Flakito Grya. . VTE Core Measure Inpt VTE Proph given/why not?: Other Anticoagulation (Aspirin 325 twice a day for 6 weeks)
--- NOTE | 2017-05-18 08:55 | Orthopedic Progress Note ---
Orthopedic Progress Note Date of Service May 18, 2017. Subjective Post OP Day: 1 Reports: feeling well Additional Notes: Feeling well this morning. Already ambulation. Requesting to go home later today Objective calves soft nontender, N/V intact, dressing C/D/I Date Time Temp Pulse Resp B/P (MAP) Pulse Ox O2 Delivery O2 Flow Rate FiO2 05/18/17 08:03 Room Air 05/18/17 07:35 36.3 63 17 125/78 (94) 94 Room Air 05/18/17 03:19 36.8 64 16 112/65 (81) 95 Room Air 05/17/17 23:30 Room Air 05/17/17 23:01 36.8 68 14 111/72 (85) 93 Room Air 05/17/17 19:03 36.6 77 16 122/76 (91) 94 Room Air 05/17/17 15:20 94 Room Air 05/17/17 15:10 36.5 69 16 129/86 (100) 94 Room Air 05/17/17 13:00 36.4 64 18 121/77 (92) 97 Nasal Cannula 2.0 05/17/17 11:58 62 16 111/73 (86) 97 Nasal Cannula 2.0 05/17/17 11:06 66 16 108/71 (83) 97 Nasal Cannula 2.0 05/17/17 10:32 36.2 66 17 109/70 (83) 98 Nasal Cannula 2.0 05/17/17 10:00 36.4 67 16 97/62 (74) 97 Nasal Cannula 2.0 05/17/17 10:00 97 Nasal Cannula 2.0 05/17/17 10:00 97 Nasal Cannula 2.0 05/17/17 09:50 70 16 98/67 97 Nasal Cannula 2 05/17/17 09:40 36.3 68 14 109/69 97 Nasal Cannula 2 05/17/17 09:30 68 12 102/65 96 Nasal Cannula 2 05/17/17 09:20 71 22 104/65 97 Nasal Cannula 2 05/17/17 09:10 70 18 93/63 97 Nasal Cannula 2 05/17/17 09:00 70 15 103/61 98 Mask 10 05/17/17 08:54 36.1 74 20 94/58 94 Mask 10 Laboratory Results 24 Hours: Test 05/18/17 05:16 Hematocrit 31.5 % Hemoglobin 10.9 g/dL Assessment & Plan Assessment: S/P L TKA Plan: 1. Aspirin 325 twice a day for 6 weeks 2. Has oxycodone at home for pain control 3. Change dressing and pull drain today 4. D/C to home later this afternoon
[2017-05-18 09:58] VITALS: BP 125/78; PULSE 63; TEMP 36.3; O2SAT 94
[2017-05-18] MEDS ORDERED: SITAGLIPTIN 100 MG TAB PO SCH (21:00)
--- NOTE | 2017-05-27 20:00 | OPERATIVE REPORT ---
PREOPERATIVE DIAGNOSIS: Primary osteoarthritis of the left knee. POSTOPERATIVE DIAGNOSIS: Same. PROCEDURE: Left total knee arthroplasty. SURGEON: Dr. Flakito Gray. FINGER COBBLER: Kahlil Kraus PA-C, whose assistance was necessary for positioning of the left and helping with instrumentation. ANESTHESIA: Spinal with an adductor nerve block. COMPLICATIONS: None. CONDITION: Stable to PACU. IMPLANTS USED: Biomet Vanguard left total knee arthroplasty system with a size 70 left femur, a size 75 tibia, a 31 patella, and a size 12 posterior stabilized plus bearing. All components were cemented with Palacos-G cement. INDICATIONS: Pablo is a pleasant 66-year-old male who presented to my office with bilateral knee pain. X-rays and clinical examination were diagnostic for primary osteoarthritis of both knees. I did a right total knee arthroplasty on him about six months ago and he has done very well with that. He has elected to proceed with a left total knee arthroplasty. On May 17, 2017, he arrived at [facility] for the above procedure. He was seen in the preoperative holding area and the operative extremity was identified and signed. He was given a preoperative antibiotic, a spinal anesthetic, and a left adductor nerve block. He was taken back to the operating room, laid on the table in the supine position and given basic sedation. The left knee was then prepped and draped in sterile fashion and a time-out was done and the patient and the operative extremity was properly identified. A midline incision was made directly over the patella. Dissection was taken down and a medial parapatellar arthrotomy was used. The fat pad was excised and the medial retinaculum was released and the knee was flexed. A drill was sent down the center of the femoral canal followed by intramedullary festus. Off that festus a distal femoral cutting block was placed and 12 mm was resected off the distal femur at 5 degrees of valgus. The femur then measured to be a size 70 and two drill holes were placed in 3 degrees of external rotation. A 4-in-1 cutting block was impacted into place and anterior, posterior and chamfer cuts were made. The boxcutting guide was then impacted into place and the box was resected for the posterior stabilizing component. The proximal tibia was then exposed. A drill was sent down the center of the tibial canal followed by an intramedullary festus. Off that festus a proximal tibial resection guide was placed and 2 mm was resected off the low medial side. Flexion and extension gaps were then checked and seemed to be appropriate. Time was spent cleaning out osteophytes and soft tissue from the posterior aspect of the knee. The tibia was then measured to be a size 75 and it was set in the appropriate rotation, drilled and then punched. The patella was then everted and 8.5 mm was resected off the posterior aspect of the patella. The patella measured to be a size 31 and three peg holes were drilled. Trial components were placed and the knee was brought through a full range of motion and felt to be stable. All components were removed and surrounding soft tissues were injected with 100 cc of an orthopedic pain control cocktail. The femoral, tibial and patella components were then cemented in place with Palacos-G cement. Once cement had dried, several different polyethylene inserts were trialed and a size 12 PS Plus seemed to be the best fit. The final poly was then snapped into place and the anterior bar was then locked. The knee was brought through a full range of motion and felt to be stable. The entire joint was then irrigated with 3 liters of normal saline solution and Bacitracin. True joints were placed. The extensor mechanism was closed with #2 Fiberwire suture in the superior and medial aspect and #1 Vicryl in the proximal and distal ends. The skin was closed with 2-0 Vicryl, 3-0 V-Loc suture and sally. He was then placed in a soft dressing and taken to the postanesthesia care unit in stable condition. He tolerated the procedure well.
--- NOTE | 2017-06-13 08:13 | DISCHARGE SUMMARY ---
DISCHARGE DIAGNOSIS: Primary osteoarthritis of the left knee. PROCEDURE: Left total knee arthroplasty on 05/17/[address] Flakito Gray. DISCHARGE INSTRUCTIONS: 1. Aspirin 325 mg twice a day. 2. Albuterol 2 puffs as needed. 3. Tenoretic 50/25 mg half a tab daily. 4. Lipitor 20 mg daily. 5. Calcium 1 tab in the evening. 6. Vitamin D 2000 units daily. 7. [place] 3, 3 caps daily. 8. Neurontin 300 mg daily. 9. Claritin 10 mg daily. 10. Glucophage 500 mg daily. 11. Glucophage 1000 mg at night. 12. Aleve as needed for pain. 13. Niacin 1000 mg at night. 14. Prilosec 20 mg at night. 15. Januvia 100 mg daily. 16. Sulindac 200 mg at night. 17. Daily dry dressing changes. 18. Follow up with Dr. Gray in 2 weeks. 19. Call the office of Dr. Gray with any questions or concerns. HOSPITAL COURSE: Guilherme is a 66-year-old male who presented to my office with chronic left knee pain. X-rays and clinical examination were diagnostic for primary osteoarthritis of the left knee. After failing conservative treatment, he elected to undergo a left total knee arthroplasty. On 05/17/[address] [facility] and underwent a left knee replacement without complication. He had a spinal anesthetic and a left adductor nerve block. Postoperatively, he was started on aspirin 325 mg twice a day and discharged to general orthopedic floors. His hospital course was uneventful. On postop day #1, his H&H was stable at 10.9 and 31.5. He was up and ambulating well with physical therapy. His drain was not putting out much so the dressing was changed and drain was pulled later in the evening on postop day #1. He continued to do very well and he was subsequently discharged to home on postop day #1 with the above instructions.
== END 2017-05-18 15:30 | disposition home health service (06) | DRG 470 ==
LOC: C.ACU 05:11 → C.3E 06:50 → ENRESERV 09:44
PROVIDERS: ADMIT Orthopaedic Surgery; ATTEND Orthopaedic Surgery
PROC: 0SRD0J9 Replacement of Left Knee Joint with Synthetic Substitute, Cemented, Open Approach (ICD-10-PCS; principal; 2017-05-17 07:00)
DX: M17.12 Unilateral primary osteoarthritis, left knee (principal); Z79.82 Long term (current) use of aspirin; Z79.899 Other long term (current) drug therapy; Z79.84 Long term (current) use of oral hypoglycemic drugs

== ENCOUNTER → 2017-08-19 | Outpatient (CLI) | payer OTHER ==
[~2017-08-19] MED LIST changes: +ASPEC325 PO; -ASPI81TA28 PO
--- NOTE | 2017-08-19 12:31 | DIAGNOSTIC IMAGING REPORT ---
(CHEST) THORAX WITHOUT CT DOSE: 636.05 mGycm HISTORY: CARCINOID TUMOR OF LUNG TECHNIQUE: Multiaxial CT images of the chest were performed without contrast. A dose lowering technique was utilized adhering to the principles of ALARA. COMPARISON: Chest CT 02/12/2017. FINDINGS: The central airways are patent. No pleural effusions. No pneumothorax. Stable suture material and adjacent mild soft tissue thickening within the base of the right lower lobe consistent with prior wedge resection. No evidence for recurrent or residual disease. No suspicious pulmonary nodules. A 2.5 cm bleb within the left lung base. A few left basilar linear densities favor subsegmental atelectasis. Stable volume loss within the right hemithorax due to the postoperative change. Old, healed sternal fracture. The unenhanced liver, spleen, and right adrenal gland are unremarkable. Right thyroid nodule/nodules measuring up to 1 cm. Stable 2 cm indeterminate left adrenal gland nodule. The heart is normal in size. No mediastinal or hilar lymphadenopathy. Normal caliber thoracic aorta. IMPRESSION: 1. No significant change compared the prior study. No acute process within the chest. 2. Postoperative changes within the base of the right lower lobe are again noted. No evidence for recurrent/residual disease. 3. Stable 2 cm indeterminate left adrenal gland nodule. Electronically signed by: Kin Goodman M.D. 08/19/2017 12:29 PM Dictated Date/Time: 08/19/2017 12:21 PM
== END | disposition home or self-care (01) ==
LOC: C.CTS 11:56
PROVIDERS: ATTEND Surgery
DX: D3A.090 Benign carcinoid tumor of the bronchus and lung (principal); E27.9 Disorder of adrenal gland, unspecified

== ENCOUNTER → 2017-09-10 | Outpatient (CLI) | payer OTHER ==
[2017-09-10 14:10] LABS: ALT/SGPT 28 U/L (12-78); BLOOD UREA NITROGEN 19 mg/dl (7-18); BUN/CREATININE RATIO 16.5 (10-20); CARBON DIOXIDE 30 mmol/L (21-32); CHLORIDE 101 mmol/L (98-107); CHOLESTEROL 140 mg/dl (0-200); CREATININE 1.17 mg/dl (0.60-1.40); GLUCOSE 128 mg/dl (70-99); POTASSIUM 3.9 mmol/L (3.5-5.1); SODIUM 138 mmol/L (136-145); TRIGLYCERIDES 210 mg/dl (0-150); VERY LOW DENSITY LIPOPROT CALC 42 mg/dl
[2017-09-10 14:15] LABS: ALB/GLOB RATIO 1.1 (0.9-2); ALKALINE PHOSPHATASE 67 U/L (45-117); AST/SGOT 22 U/L (15-37); CHOLESTEROL/HDL RATIO 3.8; ESTIMATED AVERAGE GLUCOSE 163 mg/dl; HA1C FLAG Normal (Normal); HDL CHOLESTEROL 37 mg/dl; LDL CHOLESTEROL CALCULATED 61 mg/dl; PROSTATE SPECIFIC ANTIGEN 0.751 ng/ml (0.000-4.000)
== END | disposition home or self-care (01) ==
LOC: C.LABBC 11:17
PROVIDERS: ATTEND Physician Assistant
DX: E78.5 Hyperlipidemia, unspecified (principal); E11.9 Type 2 diabetes mellitus without complications

== ENCOUNTER → 2018-01-16 | Outpatient (CLI) | payer OTHER | END | disposition home or self-care (01) | LOC: C.PATHSPEC 17:54 | PROVIDERS: ATTEND Plastic Surgery | DX: L98.9 Disorder of the skin and subcutaneous tissue, unspecified (principal); D22.5 Melanocytic nevi of trunk; D22.70 Melanocytic nevi of unspecified lower limb, including hip; L72.0 Epidermal cyst ==

== ENCOUNTER → 2018-02-20 | Outpatient (CLI) | payer OTHER ==
[2018-02-20 14:08] LABS: HEMOGLOBIN A1C 7.5 % (4.5-5.6)
[2018-02-20 14:16] LABS: BLOOD UREA NITROGEN 24 mg/dl (7-18); CALCIUM 9.8 mg/dl (8.5-10.1); CARBON DIOXIDE 28 mmol/L (21-32); CREATININE 1.22 mg/dl (0.60-1.40); GLUCOSE 124 mg/dl (70-99); POTASSIUM 3.8 mmol/L (3.5-5.1); SODIUM 136 mmol/L (136-145)
[2018-02-20 14:26] LABS: CREATININE RANDOM URINE 64.7 mg/dl
== END | disposition home or self-care (01) ==
LOC: C.LABBC 09:35
PROVIDERS: ATTEND Physician Assistant Medical
DX: Z00.00 Encounter for general adult medical examination without abnormal findings (principal); K21.9 Gastro-esophageal reflux disease without esophagitis; E11.9 Type 2 diabetes mellitus without complications; G62.9 Polyneuropathy, unspecified; I10 Essential (primary) hypertension

== ENCOUNTER 2018-07-04 18:49 | Emergency (ER) | payer OTHER ==
[~2018-07-04] VITALS: Ht 175.3 cm; Wt 103.8 kg
[2018-07-04 18:53] VITALS: TEMP 36.8; Ht 175.3 cm; Wt 103.8 kg
[2018-07-04] MEDS ORDERED: VALA1TAB2 PO (19:10)
--- NOTE | 2018-07-04 19:14 | EMERGENCY ROOM VISIT NOTE ---
History Report prepared by Melany: Breanna Dominguez Under the Supervision of: Fallon DayO. First contact with patient: 18:58 Chief Complaint: RASH Stated Complaint: RASH ON BACK-POSSIBLE SHINGLES History of Present Illness The patient is a 67 year old male who presents to the Emergency Room with complaints of a worsening rash that onset yesterday morning. The patient notes that he is not currently in any pain. The patient complains of cough from a hypertension medication and pain in his back. The patient denies nausea and vomiting. The patient notes that he has had labs completed in the past month. Source of History: patient Onset: Yesterday morning Position: back Quality: other (rash) Timing: worsening Associated Symptoms: + cough, + back pain, No nausea, No vomiting Review of Systems See HPI for pertinent positives & negatives. A total of 10 systems reviewed and were otherwise negative. Past Medical & Surgical Medical Problems: (1) Diabetes mellitus (2) HTN (hypertension) (3) Hyperlipidemia (4) Mass of lung (5) Osteoarthritis of right knee (6) Primary osteoarthritis of left knee Family History Diabetes mellitus Hypertension Social History Smoking Status: Never Smoker Alcohol Use: none Marital Status: Housing Status: lives with family Occupation Status: employed Current/Historical Medications Scheduled Aspirin (Aspirin), 325 MG PO BID Atenolol/Chlorthalidone (Tenoretic 50 Mg/25 Mg), 0.5 TAB PO QPM Atorvastatin (Lipitor), 20 MG PO QPM Calcium & Phosphorus W/ Vitami (Calcium), 1 TAB PO QPM/HS Cholecalciferol (Vitamin D), 2,000 INTUNIT PO QPM Fish Oil ([place]-3), 3 CAP PO HS Gabapentin (Neurontin), 300 MG PO QPM Loratadine (Claritin), 10 MG PO QAM Metformin Hcl (Glucophage), 500 MG PO QAM Metformin Hcl (Glucophage), 1,000 MG PO HS Naproxen (Aleve), 440 MG PO PRN Niacin (Antihyperlipidemic) (Niacin Er), 1,000 MG PO HS Omeprazole (Prilosec), 20 MG PO HS Sitagliptin (Januvia), 100 MG PO QPM Sulindac (Sulindac), 200 MG PO QPM Valacyclovir Hcl (Valtrex), 1,000 MG PO TID Scheduled PRN Albuterol Hfa (Ventolin Hfa), 2 PUFFS INH DAILY PRN for RN Allergies Coded Allergies: Penicillins (Verified Allergy, Severe, throat swelling, hives, 05/17/17) Fenofibrate (Verified Allergy, Unknown, HIVES, 05/17/17) Physical Exam Vital Signs Date Time Temp Pulse Resp B/P (MAP) Pulse Ox O2 Delivery O2 Flow Rate FiO2 07/04/18 19:44 71 18 124/80 94 07/04/18 18:53 36.8 74 18 124/80 93 Room Air Physical Exam GENERAL: Patient is awake, alert, and in no acute distress. Patient is resting comfortably and showing no signs of anxiety EYES: The conjunctivae are clear. The pupils are round and reactive. EARS, NOSE, MOUTH AND THROAT: The nose is without any evidence of any deformity. Mucous membranes are moist. Tongue is midline NECK: The neck is nontender and supple. RESPIRATORY: Normal respiratory effort is noted. There is no evidence of wheezing rhonchi or rales to auscultation. CARDIOVASCULAR: Regular rate and rhythm noted. There no murmurs rubs or gallops normal S1 normal S2 GASTROINTESTINAL: The abdomen is soft. Bowel sounds are present in all quadrants. Abdomen is nontender. MUSCULOSKELETAL/EXTREMITIES: There is no evidence of gross deformity. Full range of motion is noted in the hips and shoulders. SKIN: Raised vesicular rash noted over the left flank. Has the appearance of zoster. NEUROLOGIC: Patient is awake alert and oriented x3. Medical Decision & Procedures Medications Administered Medications (Trade) Dose Ordered Sig/Dave Route Start Time Stop Time Status Last Admin Dose Admin Valacyclovir HCl (Valtrex Tab) 1,000 mg NOW ONCE PO 07/04/18 19:15 07/04/18 19:16 DC 07/04/18 19:24 1,000 MG ED Course 1900: The patient was evaluated in room A3. A complete history and physical examination were performed. 1914: Ordered Valtrex Tab 1,000 mg PO. Medical Decision Prior records/ancillary studies reviewed. Triage Nursing notes reviewed. Additional history obtained from the patient's significant other. The patient's history was concerning for a rash. Differential diagnosis: Etiologies such as contact dermatitis, viral exanthem, urticaria, allergic reaction, Gill-Uriah syndrome, toxic epidermal necrolysis, erythema multiforme, cellulitis, scabies, HSV, varicella, zoster, eczema, staph scalded skin syndrome, fungal infection, as well as others were entertained. The patient is a 67-year-old male who presented to the emergency department with a rash. The patient had a rash on his left flank which had the appearance of zoster. The rash was noted within the last 24 hours. The patient was started on Valtrex in the emergency department. I did review the patient's recent laboratory studies. The patient was encouraged to continue all medications as prescribed and call his primary care physician to schedule a follow-up appointment. I also discussed with him keeping the area covered especially if he was going to be around anyone who is immunocompromise. He was also encouraged to continue using Motrin and Tylenol as directed for pain and return to the emergency department immediately if symptoms change worsen or the need arises. Medication Reconcilliation Current Medication List: was personally reviewed by me Impression Primary Impression: Shingles Scribe Attestation The scribe's documentation has been prepared under my direction and personally reviewed by me in its entirety. I confirm that the note above accurately reflects all work, treatment, procedures, and medical decision making performed by me. Departure Information Prescriptions Valacyclovir Hcl (VALTREX) 1 Gm Tab 1000 MG PO TID, #21 TAB Prov: Juan Luis Loredo, DO 07/04/18 Referrals No Doctor, Assigned (PCP) Patient Instructions My [facility] Problem Qualifiers Primary Impression: Shingles Herpes zoster complications: without complications Qualified Codes: B02.9 - Zoster without complications
[2018-07-04 19:44] VITALS: BP 124/80; PULSE 71; O2SAT 94
== END 2018-07-04 19:40 | disposition home or self-care (01) ==
LOC: C.EDB 18:50 → C.EDA 19:40
DX: B02.9 Zoster without complications (principal); I10 Essential (primary) hypertension; E78.5 Hyperlipidemia, unspecified; E11.9 Type 2 diabetes mellitus without complications; Z79.84 Long term (current) use of oral hypoglycemic drugs; Z79.82 Long term (current) use of aspirin; M17.0 Bilateral primary osteoarthritis of knee; Z88.1 Allergy status to other antibiotic agents; Z88.8 Allergy status to other drugs, medicaments and biological substances

== ENCOUNTER 2023-04-29 05:47 | Inpatient (IN) ==
--- NOTE | 2023-03-21 11:48 | PAT Medication Instructions ---
Medication Instructions Date of Service March 21, 2023 Home Medications Medication Instructions Recorded albuterol sulfate 90 mcg/actuation 2 puff inhalation Q6H PRN 09/15/21 aerosol inhaler (Ventolin HFA) shortness of breath or wheezing #8.5 grams syringe with needle, safety 3 mL #5 ea 11/28/21 25 gauge x 5/8" (BD Integra Syringe) budesonide-formoterol HFA 80 2 puff inhalation BID #10.2 grams 08/21/22 mcg-4.5 mcg/actuation aerosol inhaler (Symbicort) atenolol 50 mg-chlorthalidone 25 0.5 tab PO HS #45 tabs 12/24/22 mg tablet (Tenoretic) gabapentin 300 mg capsule See Rx Instructions .Route 12/24/22 .COMPLEX #360 caps losartan 25 mg tablet (Cozaar) 25 mg PO QAM #90 tabs 12/24/22 metformin 1,000 mg tablet 1,000 mg PO BID #180 tabs 12/24/22 omeprazole 40 mg capsule,delayed 40 mg PO BID #180 caps 12/24/22 release cyanocobalamin (vitamin B-12) 1,000 mcg IM MONTHLY #1 ea 01/29/23 1,000 mcg/mL injection kit trazodone 50 mg tablet 50 mg PO BID #180 tabs 02/08/23 aspirin 81 mg tablet,delayed release (Facundo Low Dose Aspirin) 81 mg PO HS cholecalciferol (vitamin D3) 50 mcg (2,000 unit) tablet (Vitamin D3) 2,000 units PO QAM omega-3 acid ethyl esters 1 gram capsule (Lovaza) 1 cap PO HS calcium carbonate 600 mg calcium (1,500 mg) tablet (Calcium) 600 mg PO HS albuterol sulfate 90 mcg/actuation aerosol inhaler (Ventolin HFA) 2 puff inhalation Q6H PRN shortness of breath or wheezing budesonide-formoterol HFA 80 mcg-4.5 mcg/actuation aerosol inhaler (Symbicort) 2 puff inhalation BID atenolol 50 mg-chlorthalidone 25 mg tablet (Tenoretic) 0.5 tab PO HS gabapentin 300 mg capsule See Rx Instructions losartan 25 mg tablet (Cozaar) 25 mg PO QAM metformin 1,000 mg tablet 1,000 mg PO BID omeprazole 40 mg capsule,delayed release 40 mg PO BID cyanocobalamin (vitamin B-12) 1,000 mcg/mL injection kit 1,000 mcg IM MONTHLY trazodone 50 mg tablet 50 mg PO BID atorvastatin 20 mg tablet 20 mg PO HS sitagliptin phosphate 100 mg tablet (Januvia) 100 mg PO QAM Continue as directed cyanocobalamin (vitamin B-12) 1,000 mcg/mL injection kit 1,000 mcg IM MONTHLY STOP taking 2 weeks before surgery omega-3 acid ethyl esters 1 gram capsule (Lovaza) 1 cap PO HS DO NOT take the morning of surgery cholecalciferol (vitamin D3) 50 mcg (2,000 unit) tablet (Vitamin D3) 2,000 units PO QAM losartan 25 mg tablet (Cozaar) 25 mg PO QAM metformin 1,000 mg tablet 1,000 mg PO BID sitagliptin phosphate 100 mg tablet (Januvia) 100 mg PO QAM Take morning of surgery With a small sip of water, OTHERWISE NOTHING TO EAT OR DRINK AFTER MIDNIGHT: albuterol sulfate 90 mcg/actuation aerosol inhaler (Ventolin HFA) 2 puff inhalation Q6H PRN shortness of breath or wheezing (use if needed; please bring with you to hospital day of surgery if possible) budesonide-formoterol HFA 80 mcg-4.5 mcg/actuation aerosol inhaler (Symbicort) 2 puff inhalation BID gabapentin 300 mg capsule See Rx Instructions omeprazole 40 mg capsule,delayed release 40 mg PO BID trazodone 50 mg tablet 50 mg PO BID Take evening before surgery aspirin 81 mg tablet,delayed release (Facundo Low Dose Aspirin) 81 mg PO HS (unless surgeon directed otherwise) calcium carbonate 600 mg calcium (1,500 mg) tablet (Calcium) 600 mg PO HS albuterol sulfate 90 mcg/actuation aerosol inhaler (Ventolin HFA) 2 puff inhalation Q6H PRN shortness of breath or wheezing (if needed) budesonide-formoterol HFA 80 mcg-4.5 mcg/actuation aerosol inhaler (Symbicort) 2 puff inhalation BID atenolol 50 mg-chlorthalidone 25 mg tablet (Tenoretic) 0.5 tab PO HS gabapentin 300 mg capsule See Rx Instructions metformin 1,000 mg tablet 1,000 mg PO BID omeprazole 40 mg capsule,delayed release 40 mg PO BID trazodone 50 mg tablet 50 mg PO BID atorvastatin 20 mg tablet 20 mg PO HS Other Notes If you have any questions please call us at [phone] or [phone] or or [phone]
--- NOTE | 2023-03-26 10:29 | Anesthesiology Consultation ---
Date of Service March 26, 2023 Assessment & Plan (1) Encounter for pre-operative examination: - pulmonology 08/21/22 [place]: "...Subacute cough...Possibly post viral versus asthmatic bronchitis. We will trial the patient on a low-dose ICS/LABA combination inhaler. Abnormal PFT: He did have a postbronchodilator response with significant. He has mild reduction in FEV1. As above, this may be related to asthmatic bronchitis. History of malignant neuroendocrine tumor...No evidence of recurrence of disease. Continue yearly CT scan. Neck scan to be completed December 2022..." - check BSG am DOS. - Outpatient joint assessment: Patient is currently scheduled for inpatient pathway. If re-evaluated pending system levels during current pandemic/surgeon requests outpatient pathway, patient is acceptable candidate for outpatient joint program from anesthesia standpoint pending surgeon's office assessment of pt motivation/support/completion of same day joint program preop requirements. Chart Review Chart Review: Acceptable Risk for Surgery and Patient seen in Pre Admission Testing Teaching & Discussion Pre-Anesthesia Teaching/Discussion Notes: Instructed NPO after midnight before surgery, except medications with 15 cc of water. Medication instructions provided according to the PAT guidelines. History Surgery Operation Date: 04/29/23 07:00 Proposed Procedures p Right Total Shoulder Arthroplasty Reverse - Flakito Gray, DO Height/Weight Height: 5 ft 9 in Weight: 87.8 kg Allergies Allergy/AdvReac Type Severity Reaction Status Date / Time Penicillins Allergy Severe throat Verified 03/22/23 10:53 swelling, hives fenofibrate Allergy Intermediate HIVES Verified 03/22/23 10:53 lisinopril AdvReac Mild cough Verified 03/22/23 10:53 Medications Home Medications Medication Instructions Recorded Confirmed Last Taken aspirin 81 mg tablet,delayed 81 mg PO HS 11/20/18 03/15/23 04/19/22 release (Facundo Low Dose Aspirin) cholecalciferol (vitamin D3) 50 2,000 units PO QA 11/20/18 03/15/23 04/22/22 mcg (2,000 unit) tablet (Vitamin D3) omega-3 acid ethyl esters 1 gram 1 cap PO HS 05/04/19 03/15/23 04/22/22 capsule (Lovaza) calcium carbonate 600 mg calcium 600 mg PO HS 01/21/20 03/15/23 04/22/22 (1,500 mg) tablet (Calcium) albuterol sulfate 90 mcg/actuation 2 puff inhalation Q6H PRN 09/15/21 03/15/23 04/22/22 aerosol inhaler (Ventolin HFA) shortness of breath or wheezing #8.5 grams syringe with needle, safety 3 mL #5 ea 11/28/21 02/08/23 Unknown 25 gauge x 5/8" (BD Integra Syringe) budesonide-formoterol HFA 80 2 puff inhalation BID #10.2 grams 08/21/22 03/15/23 Unknown mcg-4.5 mcg/actuation aerosol inhaler (Symbicort) atenolol 50 mg-chlorthalidone 25 0.5 tab PO HS #45 tabs 12/24/22 03/15/23 Unknown mg tablet (Tenoretic) gabapentin 300 mg capsule See Rx Instructions .Route 12/24/22 03/15/23 Unknown .COMPLEX #360 caps losartan 25 mg tablet (Cozaar) 25 mg PO QAM #90 tabs 12/24/22 03/15/23 Unknown metformin 1,000 mg tablet 1,000 mg PO BID #180 tabs 12/24/22 03/15/23 Unknown omeprazole 40 mg capsule,delayed 40 mg PO BID #180 caps 12/24/22 03/15/23 Unknown release cyanocobalamin (vitamin B-12) 1,000 mcg IM MONTHLY #1 ea 01/29/23 03/15/23 Unknown 1,000 mcg/mL injection kit trazodone 50 mg tablet 50 mg PO BID #180 tabs 02/08/23 03/15/23 Unknown atorvastatin 20 mg tablet 20 mg PO HS 03/15/23 03/15/23 Unknown sitagliptin phosphate 100 mg 100 mg PO QAM 03/15/23 03/15/23 Unknown tablet (Januvia) Past Medical History Medical History (Updated 03/26/23 @ 10:44 by Hannah Garber PA-C) Acid reflux disease controlled, stable per pt Adrenal nodule Benign apearance on CT scan 2017 Anemia Gagnon's esophagus EGD 06/2023, Followed by GI, Case CKD stage 3 due to type 2 diabetes mellitus Depression Diabetes mellitus, type 2 NIDDM Diabetic neuropathy feet History of colon polyps History of COVID-19 03/2022-denies hospitalization-symptoms resolved History of malignant neuroendocrine tumor pt unaware Hyperlipidemia Hypertension controlled, stable per pt Lung nodule reason for wedge resection - pt states it was benign Mild emphysema well controlled; last rescue inhaler use 3 days ago; pt reports average use of 1-2 times/week Nephrolithiasis Rib fracture subacute right anterior rib fractures on 12/[address], pt states has tenderness when chiropractor presses that area Patient denies h/o stroke, seizures, heart attack, heart failure, blood clots or blood transfusions. Exercise / Class Metabolic Activity III < 4 Walking/Shop/Light housework (denies chest discomfort or shortness of breath with usual activities) Past Family History Family History Mother Cardiac disorder Diabetes Myocardial infarction Father Diabetes Myocardial infarction Brother Stroke Aunt Breast cancer Other No family history of adverse response to anesthesia Denies family history of Ovarian cancer Prostate cancer Lung cancer Colorectal cancer Past Surgical History Surgical History History of bronchoscopy Dr. Rich History of colonoscopy 04/2022 Repeat 5 yrs History of esophagogastroduodenoscopy (EGD) History of lithotripsy History of lung surgery 2015 right lung--lower lobe wedge resection History of open reduction and internal fixation (ORIF) procedure left wrist--hardware in place History of surgery on left wrist (~04/2021) repair of tendon and removal of hardware History of tooth extraction partial upper History of total left knee replacement (TKR) History of total right knee replacement (TKR) Status post biopsy of thyroid gland benign nodule Past Anesthesia History No Hx of Anesthesia Complications and No Family Hx of Anesthesia Complications History of PONV No Hx of PONV and No Hx of Motion Sickness Social History Smoking Status: Former smoker tobacco type: cigarettes Do You Dip or Chew Tobacco: No Smoking End Date: Hx Alcohol Use: No Hx Substance Use: No substance use type: does not use Review of Systems Patient denies chest pain, shortness of breath, dyspnea on exertion, snoring, witnessed apneas, fever, chills, cough, wheezing, or palpitations. Physical Exam Vital Signs Vitals BP 128/82 P 51 TEMP 97.6 SP02 97% on RA RESP 17 Physical Full cervical extension range of motion without pain TMD 3.5 finger breadths Mallampati Score 2 Dentition: upper partial; denies chipped or loose teeth Lungs: normal respiratory effort. Clear throughout to auscultation, no adventitious breath sounds Cardiac: bradycardic, regular rhythm, no murmurs noted Carotid arteries: negative bruit bilat Lab Results Anesthesia Preop Results Results Anesthesia Widget: WBC 6.50 K/ul (4.8-10.8) 03/26/23 Hgb 13.3 g/dl (14.0-18.0) L 03/26/23 Hct 39.6 % (42.0-52.0) L 03/26/23 Plt 210 K/uL (130-400) 03/26/23 Na 138 mmol/L (136-145) 03/26/23 K 4.6 mmol/L (3.5-5.1) 03/26/23 Cl 102 mmol/L (98-107) 03/26/23 CO2 29 mmol/L (21-32) 03/26/23 BUN 22 mg/dl (6-23) 03/26/23 Creat 1.00 mg/dl (0.6-1.4) 03/26/23 Glucose Level 107 mg/dl (70-99(Fasting)) H 03/26/23 PT 10.9 Seconds (9.0-12.0) 03/26/23 PTT 26.2 Seconds (21.0-31.0) 03/26/23 INR 1.0 (0.9-1.1) 03/26/23 HA1c 6.6 % (4.5-5.6) H 03/26/23 Blood Type O Positive 03/26/23 Antibody Screen NEGATIVE 03/26/23 Testing Electrocardiogram Date: 03/26/23 Sinus rhythm with 1st degree AV block with premature supraventricular complexes, rate 70 bpm Chest X-Ray Date: 03/26/23 Cardiomediastinal and hilar silhouettes are within normal limits. Lungs are hyperinflated with diaphragmatic flattening. No pneumothorax, pleural effusion, airspace consolidation or pulmonary edema. Chronic sternal fracture. Bones appear grossly intact. IMPRESSION: No acute process. Other Testing Chest CT 01/02/23 Thyroid: Imaged portions of the thyroid gland are normal in size and attenuation. Thoracic aorta: There is mild atherosclerotic calcification of the thoracic aorta, which is normal in caliber and demonstrates standard 3-vessel arch anatomy. Heart: The heart is mildly enlarged and without pericardial effusion. The coronary arteries are densely calcified. Lungs and pleural spaces: Postsurgical change and volume loss is again seen at the right lung base. No airspace consolidation or pleural effusion is i dentified. Foci of scarring/atelectasis are noted in both lungs. The trachea and central airways are clear. There are punctate calcified granulomas. A 4 mm nodule in the lingula along the major fissure on image #179 is unchanged, as is a 3 mm right middle lobe nodule seen on image #131. Mediastinum: There is no mediastinal lymphadenopathy. Yadira: Not well assessed without IV contrast. Axillae: There is no axillary lymphadenopathy. Upper abdomen: A 5 mm nonobstructing calculus is seen in the upper pole of the right kidney. There is a tiny hiatal hernia. A 2 cm left adrenal adenoma is unchanged. Skeletal structures: The skeletal structures are osteopenic. No lytic or blastic bony lesions are seen. Degenerative change is seen throughout the thoracic spine. There is chronic posttraumatic deformity of the sternum. There are subacute/healing right anterior rib fractures. Additional bilateral rib fractures are chronic/healed. IMPRESSION: 1. Chronic parenchymal and postsurgical changes as above are similar to previous. 2. There is no airspace consolidation or pleural effusion. 3. Low suspicion pulmonary nodules measuring up to 4 mm have not significantly changed from previous. No new or enlarging pulmonary lesion is seen. 4. There are subacute appearing right anterior rib fractures. Clinical correlation will be required. 5. Right-sided nephrolithiasis. 6. Additional findings as above. PFT 08/01/22 Nonspecific spirometric pattern with a significant postbronchodilator response. Lung volumes normal. DLCO normal. Findings suggest bronchial hyperresponsiveness COVID-19 Risk Screen Screening Information COVID-19 Screen Date: 03/26/23 Exposure 21 Days Family/Household +COVID Last 21 Days: No Exposure 10 Days Any COVID Exposure Last 10 Days: No Symptoms Last 10 Days Experienced COVID Sx Last 10 Days: No + COVID 0-90 Days COVID + in Last 0-90 Days: No
--- NOTE | 2023-04-25 13:11 | History & Physical Report ---
Date of Service April 25, 2023 Assessment & Plan (1) Right rotator cuff tear arthropathy: We will proceed with a right reverse shoulder arthroplasty. Postoperatively he will be placed in a sling and kept overnight in the hospital for postop medical management. He plans to go to outpatient physical therapy upon discharge. History of Present Illness Chief Complaint: Cuff tear arthropathy of the right shoulder. Primary Care Provider: Flakito Mayo DO Vanegas is a pleasant 72-year-old male who is well known to me. He has been dealing with chronic bilateral shoulder pain. He has been receiving injections from my PA for the past few years. His shoulder pain is getting worse. He is having trouble doing activity away from his body or up overhead. 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 After failing conservative treatment, he has elected to proceed with a right reverse shoulder arthroplasty. Allergies Allergy/AdvReac Type Severity Reaction Status Date / Time Penicillins Allergy Severe throat Verified 03/28/23 11:40 swelling, hives fenofibrate Allergy Intermediate HIVES Verified 03/28/23 11:40 lisinopril AdvReac Mild cough Verified 03/28/23 11:40 Home Medications Medication Instructions Recorded Confirmed Type aspirin 81 mg tablet,delayed 81 mg PO HS 11/20/18 03/28/23 History release (Facundo Low Dose Aspirin) cholecalciferol (vitamin D3) 50 2,000 units PO QAM 11/20/18 03/28/23 History mcg (2,000 unit) tablet (Vitamin D3) omega-3 acid ethyl esters 1 gram 1 cap PO HS 05/04/19 03/28/23 History capsule (Lovaza) calcium carbonate 600 mg calcium 600 mg PO HS 01/21/20 03/28/23 History (1,500 mg) tablet (Calcium) albuterol sulfate 90 mcg/actuation 2 puff inhalation Q6H PRN 09/15/21 03/28/23 Rx aerosol inhaler (Ventolin HFA) shortness of breath or wheezing #8.5 grams atenolol 50 mg-chlorthalidone 25 0.5 tab PO HS #45 tabs 12/24/22 03/28/23 Rx mg tablet (Tenoretic) gabapentin 300 mg capsule See Rx Instructions .Route 12/24/22 03/28/23 Rx .COMPLEX #360 caps losartan 25 mg tablet (Cozaar) 25 mg PO QAM #90 tabs 12/24/22 03/28/23 Rx metformin 1,000 mg tablet 1,000 mg PO BID #180 tabs 12/24/22 03/28/23 Rx omeprazole 40 mg capsule,delayed 40 mg PO BID #180 caps 12/24/22 03/28/23 Rx release cyanocobalamin (vitamin B-12) 1,000 mcg IM MONTHLY #1 ea 01/29/23 03/28/23 Rx 1,000 mcg/mL injection kit trazodone 50 mg tablet 50 mg PO BID #180 tabs 02/08/23 03/28/23 Rx atorvastatin 20 mg tablet 20 mg PO HS 03/15/23 03/28/23 History sitagliptin phosphate 100 mg 100 mg PO QAM 03/15/23 03/28/23 History tablet (Januvia) budesonide-formoterol HFA 80 2 puff inhalation BID #10.2 grams 03/28/23 03/28/23 Rx mcg-4.5 mcg/actuation aerosol inhaler (Symbicort) syringe with needle, safety 3 mL #5 ea 04/05/23 Rx 25 gauge x 5/8" (BD Integra Syringe) Past Med/Surg History Medical History Acid reflux disease controlled, stable per pt Adrenal nodule Benign apearance on CT scan 2017 Anemia Gagnon's esophagus EGD 06/2023, Followed by GI, Case CKD stage 3 due to type 2 diabetes mellitus Cough variant asthma Depression Diabetes mellitus, type 2 NIDDM Diabetic neuropathy feet History of colon polyps History of COVID-19 03/2022-denies hospitalization-symptoms resolved History of malignant neuroendocrine tumor pt unaware Hyperlipidemia Hypertension controlled, stable per pt Lung nodule reason for wedge resection - pt states it was benign Mild emphysema well controlled; last rescue inhaler use 3 days ago; pt reports average use of 1-2 times/week Nephrolithiasis Rib fracture subacute right anterior rib fractures on 12/[address], pt states has tenderness when chiropractor presses that area Surgical History History of bronchoscopy Dr. Rich History of colonoscopy 04/2022 Repeat 5 yrs History of esophagogastroduodenoscopy (EGD) History of lithotripsy History of lung surgery 2014 right lung--lower lobe wedge resection History of open reduction and internal fixation (ORIF) procedure left wrist--hardware in place History of surgery on left wrist (~04/2021) repair of tendon and removal of hardware History of tooth extraction partial upper History of total left knee replacement (TKR) History of total right knee replacement (TKR) Status post biopsy of thyroid gland benign nodule Family History Mother Cardiac disorder Diabetes Myocardial infarction Father Diabetes Myocardial infarction Brother Stroke Aunt Breast cancer Other No family history of adverse response to anesthesia Denies family history of Ovarian cancer Prostate cancer Lung cancer Colorectal cancer Social History Smoking Status: Former smoker Age Started Using Tobacco: 18; Age Quit Using Tobacco: 29; packs per day: 0.5; Second Hand Exposure: No; Do You Dip or Chew Tobacco: No; Hx Alcohol Use: No Hx Substance Use: No Preferred Language: Citizen Of [place] Communication Ability: Effective Visual Impairment: Limited Hearing Ability: Use of Hearing Aid 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: No Beliefs That Will Affect Care: None marital status: Current Living Situation: Spouse and Family Current Living Situation Comment: Lives with and granddaughter and great grandson current occupational status: retired How many Children do You have: 2 Feels Safe at Home: Yes Childhood Exposure to Second-Hand Smoke: Yes caffeine: Yes Dental Care, Regularly: Yes Physical Activity Frequency: 3-4 Times per Week Seatbelt Use: always Sunscreen Use: No Assistive Devices: Denture - Upper, Glasses and Hearing Aid - Bilateral Review of Systems All systems reviewed & are unremarkable except as noted in HPI & below. Physical Exam Physical examination of the right shoulder, he has about 90 degrees of forward elevation 60 degrees of abduction. He has 3 out of 5 motion at the full can testing and external rotation.. Constitutional WD/WN, vitals as above Eyes PERRL, conjunctivae normal, anicteric sclerae ENMT external ear and nose normal, oropharynx normal Neck trachea midline, no thyromegaly Respiratory normal respiratory effort, lungs clear to auscultation Cardiovascular RRR, no murmur, no edema Gastrointestinal (Abdomen) normal bowel sounds, soft, nontender, no hepatosplenomegaly Skin no rashes, warm and dry Psychiatric A+Ox3, euthymic affect Results & Data Results & Data Laboratory Results . Diagnostic Findings X-rays of the right shoulder show signs of cuff tear arthropathy with superior migration of the humeral head on the glenoid.. PG Care Time/CCT Total # of Minutes Spent Total Time Spent with Patient: Total time spent is greater than 50% in coordination of care (as documented) at patient's floor/unit and/or counseling patient: Coding Level of Care Code None Diagnoses Right rotator cuff tear arthropathy M75.101; M12.811
[2023-04-29] MEDS ORDERED: GABAPENTIN 300 MG CAP PO SCH (06:00)
[2023-04-29] MEDS ORDERED: ACETAMINOPHEN 500 MG TAB PO SCH (06:00)
[2023-04-29] MEDS ORDERED: TRANEXAMIC ACID 1,000 MG **IV Intra-op IV SCH (06:00)
[2023-04-29] MEDS ORDERED: LR 60ML/HR IV SCH (06:00)
[2023-04-29] MEDS ORDERED: dexAMETHasone 4 MG TAB PO SCH (06:00)
[2023-04-29] MEDS ORDERED: FAMOTIDINE 20 MG TAB PO SCH (06:00)
[2023-04-29] MEDS ORDERED: ORTHO JOINT MIX INFIL SCH (06:00)
[2023-04-29] MEDS ORDERED: LR 15ML/HR IV SCH (06:00)
[2023-04-29] MEDS ORDERED: TRANEXAMIC ACID 1,000 MG **IV Pre-op IV SCH (06:00)
[2023-04-29] MEDS ORDERED: BUPIVACAINE 0.5 % 5 MG/1 ML PF 10ML VIAL ONE (06:19)
[2023-04-29] MEDS ORDERED: GLYCOPYRROLATE 0.2 MG/ML VIAL ONE (06:36)
[2023-04-29] MEDS ORDERED: ONDANSETRON INJ 2 MG/ML 2 ML VIAL ONE (06:36)
[2023-04-29] MEDS ORDERED: PROPOFOL IV EMULSION 10 MG/ML 20 ML VIAL IV ONE (06:36)
[2023-04-29] MEDS ORDERED: DEXAMETHASONE SOD INJ 4 MG/ML VIAL ONE (06:36)
[2023-04-29] MEDS ORDERED: MIDAZOLAM HCL 1 MG/ML 2ML VIAL ONE (06:37)
[2023-04-29] MEDS ORDERED: fentaNYL citrate PF 100 MCG/2 ML VIAL ONE (06:37)
[2023-04-29] MEDS ORDERED: ceFAZolin 2000MG 2,000 MG/15 ML SYR IV SCH (06:45)
[2023-04-29] MEDS ORDERED: Nursing to Pharmacy Communication SCH (06:45)
--- NOTE | 2023-04-29 06:45 | History & Physical Bridge Note ---
Date of Service April 29, 2023 History & Physical Bridge Note I have examined the patient, reviewed the History & Physical and in the interval since the performance of the History & Physical I have noted the following changes of clinical significance: no changes noted
[2023-04-29] MEDS ORDERED: ORTHO JOINT ANESTHETIC ONE (07:16)
[2023-04-29] MEDS ORDERED: ONDANSETRON INJ 2 MG/ML 2 ML VIAL IV PRN ×2 (07:29→10:37)
[2023-04-29] MEDS ORDERED: fentaNYL citrate PF 100 MCG/2 ML VIAL IV PRN (07:29)
[2023-04-29] MEDS ORDERED: ATROPINE SULFATE 0.1 MG/ML 10ML SYR IV PRN (07:29)
--- NOTE | 2023-04-29 09:17 | Operative Report ---
PG Post Operative Report Pre & Post Diagnosis Operation Date: 04/29/23 08:00 Pre-Op Diagnosis: Right rotator cuff tear arthropathy with tendinopathy long head of the biceps tendon Post-Op Diagnosis: Right rotator cuff tear arthropathy with tendinopathy long head of the biceps tendon I identified the patient and participated in the time-out.: Yes Procedure Operation Date: 04/29/23 08:00 Actual Procedures p Right Total Shoulder Arthroplasty Reverse(Right) with open biceps tenodesis as a distinct and separate procedure (modifier 59)- Flakito Gray DO Surgeon Flakito Gray DO Marine Service Manager Flakito Rodriguez PA-C Estimated Blood Loss 150 Findings Consistent with Post-Op Diagnosis Specimens Right humeral head Description of Procedure A CPT code modifier 59: The long head of the biceps tendon was enlarged and inflamed consistent with tendinopathy. A tenodesis was opted. This was a separate and distinct portion of the procedure. For these reasons, a CPT code modifier 59 will be added to this case. Implants used: I used a Biomet Comprehensive reverse total shoulder arthroplasty system with a size 12 press fit micro humeral stem, a +3 offset humeral tray and a standard humeral bearing, a 25 mm small augment baseplate with a 6.5 mm central screw and superior and inferior locking screws, and a size 40 mm eccentric glenosphere. Pablo arrived at [facility] for the above procedure. He was seen in the preoperative holding area and the operative extremity was identified and signed. He was given a preoperative antibiotic, TXA, and an interscalene nerve block. He was taken back to the operating room, laid on table in supine position, and put under general anesthesia. He was then put into the beachchair position. The shoulder was then prepped and draped in sterile fashion. A timeout was done and the patient and the operative extremity was properly identified. A deltopectoral approach was used. Dissection was taken down through the fascia and the deltoid was retracted laterally and the conjoined tendon was retracted medially. The anterior shoulder was exposed. The biceps groove was opened up and the biceps tendon was examined extensively. The biceps tendon demonstrated enlargement and inflammatory changes consistent with longstanding inflammation in the context of osteoarthritis and cuff arthropathy. The long head of the biceps tendon was then tenodesed to the upper border of the pectoralis major. This was a separate and distinct portion of the procedure. The subscapularis was then directly released off the lesser tuberosity with a peel technique. The inferior capsule was released and the humeral head was dislocated. A canal finding reamer was sent down the center of the humeral canal. Sequential reaming up to a size 12 reamer was done. Off that reamer, a proximal humeral resection guide was placed. The proximal humerus was resected at 135 of inclination and 25 of retroversion. Osteophytes were then removed and the glenoid was exposed. Time was spent doing a complete capsular and labral release. The glenoid guide was then placed in the inferior aspect of the glenoid. A 3.2 mm Steinmann pin was then placed into the glenoid vault at 10 of inclination. The glenoid baseplate was then reamed. The final size 25 mm small augment baseplate was then impacted in the place. A 6.5 mm central screw was then placed followed by superior and inferior locking screws. A 40 mm eccentric glenosphere was then impacted into place. Surrounding soft tissues were then injected with 100 cc an orthopedic pain control cocktail. The proximal humerus was then exposed. Sequential broaching of the humerus up to a size 12 broach was done. Off that broach a +3 offset humeral tray was trialed. The shoulder was then reduced, brought through a full range of motion, and felt to be stable. The shoulder was then dislocated and the broach was removed. The final size 12 micro press-fit humeral stem was then impacted into place. A standard humeral bearing was then snapped onto a +3 offset humeral tray. The humeral tray was then impacted onto the humeral stem. The shoulder was once again reduced, brought through a full range of motion, and felt to be stable. The subscapularis was then tenodesed back to the lesser tuberosity with transosseous FiberWire sutures and side to side sutures with the arm in 45 of external rotation. A dilute betadyne lavage was then done for 3 minutes. The joint was then irrigated with normal saline solution. Hemostasis was obtained. The interval was closed with 2-0 Vicryl suture. The skin was then closed with 2-0 Vicryl and sally. A Silverlon dressing was placed and the arm was rested in a regular arm sling. He was then extubated and transferred to a hospital bed. He taken to the postanesthesia care unit in stable condition. He tolerated the procedure well. Flakito Rodriguez PA-C, was present for the entire procedure. He was critical for patient positioning, prepping, draping, retraction exposure, wound closure and application of sterile dressing. I attest to the content of the Intraoperative Record and any orders documented therein. Any exceptions are noted below.
--- NOTE | 2023-04-29 10:26 | XRay Report ---
XR shoulder RT min 2V routine CLINICAL HISTORY: Post shoulder surgery COMPARISON: Right shoulder radiographs March 26, 2023. FINDINGS: Alignment of the reverse total right shoulder arthroplasty is anatomic. There is no peripr osthetic fracture. No unexpected radiopaque foreign bodies are present. There are skin sally. IMPRESSION: Expected findings following reverse total right shoulder arthroplasty. ACT 112: Negative or not required by law. Electronically signed by: Bertrand Ruiz M.D. 04/29/2023 10:24 AM
[2023-04-29] MEDS ORDERED: NALOXONE HCL 0.4 MG/1 ML VIAL/CARP IV PRN (10:37)
[2023-04-29] MEDS ORDERED: bisacodyL 10 MG SUPP PR PRN (10:37)
[2023-04-29] MEDS ORDERED: HYDROmorphone INJ 0.5 MG/0.5 ML SYR IV PRN (10:37)
[2023-04-29] MEDS ORDERED: ALBUTEROL HFA 8 GM INHALER INH PRN (10:37)
[2023-04-29] MEDS ORDERED: oxyCODONE HCL IR 5 MG TAB (IMMEDIATE RELEASE) PO PRN (10:37)
[2023-04-29] MEDS ORDERED: METOCLOPRAMIDE HCL INJ 5 MG/ML 2 ML VIAL IV PRN (10:37)
[2023-04-29] MEDS ORDERED: MAGNESIUM HYDROXIDE SUSP 30 ML UDC PO PRN (10:37)
[2023-04-29] MEDS ORDERED: PHARMACY GLYCEMIC MGMT CONSULT PRN (10:37)
[2023-04-29] MEDS: SODIUM CHLORIDE 0.9% 1000ML 1,000 ML IV SCH ×2 (10:40→19:39)
--- NOTE | 2023-04-29 10:41 | Anesthesiology Progress Note ---
Date of Service April 29, 2023 Anesthesia Post Procedure Vital Signs Vital Signs: Temp Pulse Resp BP Pulse Ox O2 Del Method O2 Flow Rate 04/29/23 10:15 36.4 C L 60 14 107/69 97 Nasal Cannula 2 04/29/23 10:05 62 14 110/63 96 Nasal Cannula 2 04/29/23 09:55 62 14 104/63 96 Oxymask 6 04/29/23 09:45 68 16 114/66 98 Oxymask 10 04/29/23 09:34 36 C L 82 14 105/68 98 Oxymask 10 04/29/23 06:13 36.4 C L 78 18 118/82 95 Room Air Pain Intensity Right Shoulder: Pain Intensity: 0 Transfer of Care Handoff Completed per policy Notes Mental Status: alert / awake / arousable Patient Amnestic to Procedure: Yes Nausea / Vomiting: adequately controlled Pain: adequately controlled Airway Patency, RR, SpO2: stable & adequate BP & HR: stable & adequate Hydration State: stable & adequate Anesthetic Complications: no major complications apparent
[2023-04-29] MEDS ORDERED: FLUTICASONE/VILANTEROL 100/25MCG 14 PUFFS/INHALER INH PRN (11:00)
[2023-04-29] MEDS ORDERED: GLUCOSE 10 TAB/TUBE PO PRN (11:15)
[2023-04-29] MEDS ORDERED: CARBOHYDRATES FOR HYPOGLYCEMIA PO PRN (11:15)
[2023-04-29] MEDS ORDERED: GLUCAGON FOR INJ 1 MG VIAL IM PRN (11:15)
[2023-04-29] MEDS ORDERED: GLUCOSE 40% GEL 15 GM TUBE PO PRN (11:15)
[2023-04-29] MEDS ORDERED: DEXTROSE 50% 50 ML SYRINGE IV PRN (11:15)
[2023-04-29] MEDS ORDERED: LANTUS PER UNIT CHARGE SC ONE (11:30)
[2023-04-29] MEDS: KETOROLAC TROMETHAMINE 15 MG/ML VIAL IV SCH ×2 (11:35→17:24)
[2023-04-29] MEDS: INSULIN ASPART PER UNIT CHARGE SC SCH ×3 (12:50→21:36)
[2023-04-29] MEDS: GABAPENTIN 300 MG CAP PO SCH (13:29)
[2023-04-29] MEDS: ACETAMINOPHEN 500 MG TAB PO SCH ×2 (13:29→21:34)
--- NOTE | 2023-04-29 14:19 | Pharmacy Report ---
Pharmacy Glycemic Short Note 2 - Date of Service April 29, 2023 - Glycemic Short BSG Results (Last 24 hours): 04/29/23 04/29/23 06:10 12:09 POC Glucose 154 H 168 H OUTPATIENT ANTIDIABETIC REGIMEN: * metformin 1 gm PO BID * Januvia 100 mg PO daily * HbA1C = 6.6% (03/26/23) ASSESSMENT: * Mr Madison is a 72 y/o M with a PMH of T2DM on two oral medications. Patient is POD 0 for shoulder surgery * Patient received PO dexamethasone 8 mg and IV dexamethasone 4 mg intraop. * Preop BSG was 154 mg/dL. Postop BSG was 168 mg/dL. * Will give Lantus 35 units SQ x 1 (0.4 units/kg). Lantus chosen since patient's HbA1C is slightly elevated + patient on two oral medications. * Novolog weight-based stress of 3 for steroid hyperglycemia. PLAN FOR INPATIENT GLYCEMIC CONTROL: * Hold outpatient oral diabetes medications * Basal insulin * Lantus 35 units SQ x 1 * Bolus insulin * NovoLog per scale ACHS or Q6hrs while NPO * Goal Range: Low 110 mg/dL - High 140 mg/dL * Correction Factor: 20 mg/dL/unit * Nutritional / Prandial insulin per carb ratio of 1 unit per 6 grams CHO consumed
[2023-04-29] MEDS: ceFAZolin 2000MG 2,000 MG/15 ML SYR IV SCH (16:24)
[2023-04-29] MEDS ORDERED: ASPIRIN 81 MG ECTAB PO SCH (21:00)
[2023-04-29] MEDS ORDERED: ATORVASTATIN 20 MG TAB PO SCH (21:00)
[2023-04-29] MEDS ORDERED: ATENOLOL CHLORTHALIDONE PO SCH (21:00)
[2023-04-29] MEDS ORDERED: SENNA 8.6 MG TAB PO SCH (21:00)
[2023-04-29] MEDS ORDERED: ATENOLOL 25 MG TABLET PO SCH (21:00)
[2023-04-29] MEDS ORDERED: CHLORTHALIDONE 25 MG TAB PO SCH (21:00)
[2023-04-29] MEDS ORDERED: OMEGA-3 (PURIFIED FISH OIL) 1 GM CAP PO SCH (21:00)
[2023-04-29] MEDS: PANTOprazole 40 MG TAB PO SCH (21:34)
[2023-04-29] MEDS: DOCUSATE SODIUM 100 MG CAP PO SCH (21:34)
[2023-04-30] MEDS: ceFAZolin 2000MG 2,000 MG/15 ML SYR IV SCH (00:02)
[2023-04-30] MEDS: KETOROLAC TROMETHAMINE 15 MG/ML VIAL IV SCH ×2 (00:02→05:23)
[2023-04-30] MEDS: ACETAMINOPHEN 500 MG TAB PO SCH (05:23)
--- NOTE | 2023-04-30 06:55 | Orthopedic Progress Note ---
Date of Service April 30, 2023 Assessment & Plan (1) Status post reverse total replacement of right shoulder: Overall he is doing fairly well. He is not having much pain in the right shoulder. He will be seen by physical therapy today for ambulation and range of motion exercises. He can be discharged home later today. He will follow-up with orthopedics in 2 weeks. Tonja Shah was seen and examined at bedside this morning. Overall is doing fairly well. He is not having much pain in the right shoulder. He was able to get some sleep last night. He has no complaints.. Review of Systems All systems reviewed & are unremarkable except as noted in HPI & below. Physical Exam On physical examination of the right shoulder, the dressing is clean and dry. He is wearing his sling as instructed. The nerve block is still in effect.. Results & Data Results & Data Laboratory Results . Diagnostic Findings Postoperative x-rays of the right shoulder show the prosthesis to be in anatomic alignment without any evidence of fracture, dislocation, or loosening. PG Care Time/CCT Total # of Minutes Spent Total Time Spent with Patient: Total time spent is greater than 50% in coordination of care (as documented) at patient's floor/unit and/or counseling patient: Coding Level of Care Code 76010 Post Operative Follow-Up Diagnoses Status post reverse total replacement of right shoulder Z96.611
--- NOTE | 2023-04-30 06:56 | Discharge Summary ---
Date of Service April 30, 2023 Admission HPI (Per Admitting) Guilherme is a pleasant 72-year-old male who is well known to me. He has been dealing with chronic bilateral shoulder pain. He has been receiving injections from my PA for the past few years. His shoulder pain is getting worse. He is having trouble doing activity away from his body or up overhead. 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 After failing conservative treatment, he has elected to proceed with a right reverse shoulder arthroplasty. Admission Exam (Per Admitting) Physical examination of the right shoulder, he has about 90 degrees of forward elevation 60 degrees of abduction. He has 3 out of 5 motion at the full can testing and external rotation.. Principal Diagnosis Same as "Discharge Diagnosis" noted below under Discharge Instructions. Discharge Exam On physical examination of the right shoulder, the dressing is clean and dry. He is wearing his sling as instructed. The nerve block is still in effect.. Discharge Data Procedures Performed Operation Date: 04/29/23 08:00 Actual Procedures p Right Total Shoulder Arthroplasty Reverse(Right) - Flakito Gray DO Ordered Studies 04/29/23 05:00 US - OR guided needle placemen Routine Hospital Course (1) Status post reverse total replacement of right shoulder: On April 29, 2023 Pablo arrived at [facility] and underwent a right reverse shoulder replaced without complication. He had a general anesthetic and a right interscalene nerve block. Postoperatively he was placed in a sling and transferred to the general orthopedic floors. His hospital course was uneventful. On postop day #1, his vital signs were stable and his pain was well controlled. He was able to participate well with physical therapy doing ambulation and range of motion exercises. He was then discharged home. He will follow-up with orthopedics in 2 weeks. PG Care Time/CCT Total # of Minutes Spent Total Time Spent with Patient: Total time spent is greater than 50% in coordination of care (as documented) at patient's floor/unit and/or counseling patient: Discharge Plan Discharge Items Patient Disposition: Home - Home Health Services Reason For Visit: Right Shoulder Degenerative Joint Disease Discharge Diagnosis: Right reverse shoulder replacement Activity: As commented below Non-emergency contact: Surgeon Call non-emergency contact if: your wound has increased redness and your wound has increased drainage Follow-up/Referrals: Flakito Mayo, [Primary Care Provider] - Diet: Regular Addtl Attending Provider Instructions: Activity and Therapy Recommendations: * If you are using [facility] then therapy will be provided at your home until they feel you have accomplished all of your goals. * If you are using [facility] then Physical Therapy will be provided until they feel you are ready to start Outpatient Physical Therapy. * If you are not using home therapy then Outpatient Physical Therapy should start about 3-5 days from your day of surgery. Therapy will last about 8-12 weeks * Wear your sling for 3 weeks, unless otherwise instructed. You may remove your sling to shower and to dress, but otherwise, you should be in your sling at all times, including while sleeping * The shoulder replacement is very stable and you can use your hand while in the sling * You were shown a series of exercises in the hospital. Do these exercises daily including the exercises you were shown in physical therapy. Medications: * Narcotic You will likely be sent home from the hospital with a prescription for the narcotic pain medication that worked best throughout your stay. * Other medications may be prescribed for specific circumstances. If you have any questions, please call the office at . * Resume previous home medications unless otherwise instructed Dressing Care: Leave the Silverlon dressing in place for 7 days. After 7 days you may remove the dressing. If the incision is not draining then you may leave the sally open to air. If there is a little bit of drainage or if the sally are getting stuck on your clothing then cover the incision with a dry dressing. The sally will be removed at your 2 week follow-up appointment. Showering: You may shower with the Silverlon dressing in place. Do not let the shower spray hit the dressing directly. Pat the Silverlon dressing dry. If the dressing becomes wet underneath, then simply remove the dressing. Keep the incision dry until you are 7 days out from the day of surgery. After 7 days you may remove the Silverlon dressing and shower with the sally exposed. Let soapy water run over the sally and pat them dry. Do not scrub or soak the incision. Things To Watch For: * Drainage from the incision site that occurs more than one week after your surgery. * Increased redness at the incision site. * Fever above 102 degrees Fahrenheit. * Unusual chest pain or shortness of breath. * Call [facility] at with any of the above problems Follow-Up Visit: Follow-up with Dr. Gray's PA (Flakito Rodriguez) 2-3 weeks after your day of surgery. He will remove your sally and answer any questions. If you have any additional questions or concerns, Dr Gray is usually in the office at the same time and will be available An appointment was probably scheduled when you signed-up for surgery in the office. If you have any questions call More detailed instructions as well as Frequently Asked Questions were provided in a folder by our office when you signed-up for surgery. Please review these instructions when you get home. If you have any further questions or concerns, please feel free to call the office at [phone] Pending Studies at Discharge: No Stand-Alone Forms: My [facility], Smoking Cessation Medications and DC Order Prescriptions: New oxycodone-acetaminophen 5-325 mg tablet 1 tab PO Q6H PRN (Reason: pain) Qty: 30 0RF Continued albuterol sulfate [Ventolin HFA] 90 mcg/actuation HFA aerosol inhaler 2 puff INH Q6H PRN (Reason: shortness of breath or wheezing) Qty: 8.5 2RF cyanocobalamin (vitamin B-12) 1,000 mcg/mL kit 1,000 mcg IM MONTHLY Qty: 1 5RF (DME) BD Integra Syringe 3 mL 25 gauge x 5/8" syringe See Rx Instructions .Route Qty: 5 3RF Rx Instructions: As directed calcium carbonate [Calcium 600] 600 mg calcium (1,500 mg) tablet 600 mg PO HS omega-3 acid ethyl esters [Lovaza] 1 gram capsule 1 cap PO HS trazodone 50 mg tablet 50 mg PO BID Qty: 180 3RF atenolol-chlorthalidone [Tenoretic 50] 50-25 mg tablet 0.5 tab PO HS Qty: 45 3RF gabapentin 300 mg capsule See Rx Instructions .ROUTE .COMPLEX Qty: 360 3RF Dose Instruction: TAKE 1 CAPSULE TWICE A DAY, AND 2 CAPSULES AT BEDTIME Rx Instructions: TAKE 1 CAPSULE TWICE A DAY, AND 2 CAPSULES AT BEDTIME losartan [Cozaar] 25 mg tablet 25 mg PO QAM Qty: 90 3RF metformin 1,000 mg tablet 1,000 mg PO BID Qty: 180 3RF omeprazole 40 mg capsule,delayed release(DR/EC) 40 mg PO BID Qty: 180 3RF aspirin [Facundo Low Dose Aspirin] 81 mg Tablet,Delayed Release (Dr/Ec) 81 mg PO HS cholecalciferol (vitamin D3) [Vitamin D3] 2,000 unit Tablet 2,000 units PO QAM atorvastatin 20 mg tablet 20 mg PO HS Rx Instructions: TAKE 1 TABLET AT BEDTIME Januvia 100 mg tablet 100 mg PO QAM Rx Instructions: TAKE 1 TABLET EVERY MORNING budesonide-formoterol [Symbicort] 80-4.5 mcg/actuation HFA aerosol inhaler 2 puff inhalation BID PRN (Reason: Shortness Of Breath Or Wheezing) Discharge Orders: Discharge Order (Routine); Ordered 04/30/23 Ordered By: Flakito Gray Admission Data Admit Date/Time: 04/29/23 09:33 Attending Provider: Flakito Gray Admit Provider: Flakito Gray Primary Care Provider: Flakito Mayo
[2023-04-30] MEDS: DOCUSATE SODIUM 100 MG CAP PO SCH (08:04)
[2023-04-30] MEDS: GABAPENTIN 300 MG CAP PO SCH (08:04)
[2023-04-30] MEDS: PANTOprazole 40 MG TAB PO SCH (08:04)
[2023-04-30] MEDS: INSULIN ASPART PER UNIT CHARGE SC SCH (08:36)
[2023-04-30] MEDS ORDERED: LOSARTAN POTASSIUM 25 MG TAB PO SCH (09:00)
[2023-04-30] MEDS ORDERED: MULTIVITAMIN TAB PO SCH (09:00)
[2023-04-30] MEDS ORDERED: LANTUS PER UNIT CHARGE SC SCH (09:00)
== END 2023-04-30 10:43 | disposition home or self-care (01) | DRG 483 ==
LOC: ASU 05:47 → 3E 09:33

== ENCOUNTER 2024-08-23 08:08 | Inpatient (IN) ==
--- NOTE | 2024-08-23 08:37 | Emergency Department Note ---
Impression & Plan Acute cholecystitis Admission ED Provider Note HPI: History obtained from patient. The patient is a 74-year-old gentleman who presents the emergency department with a chief complaint of chest pain, and subjective fever/chills for the past 2 days. Patient states that he was evaluated at an outside hospital emergency room yesterday and was discharged home after unremarkable testing. Patient states that overnight he developed some severe chills and required multiple blankets to sleep. He denies any cough. On arrival here to the ED the patient is hypertensive at 189/83 but otherwise hemodynamically stable, he is saturating well on room air on arrival. Patient denies any nausea or vomiting, denies any diarrhea. ROS: - Per HPI Differential Diagnosis: Viral upper respiratory infection, pneumonia, acute CHF exacerbation, COPD exacerbation, pleural effusion, pulmonary edema, acute coronary syndrome, pulmonary embolism, amongst other potential pathologies. *Outpatient medications and allergy history reviewed. 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: (As interpreted by myself): - An order was placed for continuous cardiac monitoring - Patient was noted to be in sinus rhythm with a rate of 85 EKG: (As interpreted by myself): Rate: 91 Rhythm: Sinus rhythm Intervals: Within normal limits ST changes: No ST elevation Time: 0825 EKG #2: (As interpreted by myself): Rate: 135 Rhythm: Sinus tachycardia Intervals: Within normal limits ST changes: No ST elevation Time: 1335 Chest x-ray: (As interpreted by myself): No focal infiltrate Interventions provided in ED: -Tylenol, IV fluid bolus, IV ertapenem, IV diltiazem Medical Decision Making: IV was established and lab work obtained, patient was placed on 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 Lab work shows a mild leukocytosis at 11.53, hemoglobin is stable at 13.2, platelet count is normal, CMP does not show any evidence of any critical findings, troponin is negative x 1. BNP is within normal limits, chest x-ray per my interpretation does not show any evidence of focal infiltrate. On my reassessment patient states that he remains with some mild chest discomfort but otherwise feels well, given his recent negative workup without obvious source for chest pain CT angiography of the chest was ordered following my discussion with the patient, this does not show any evidence of pulmonary embolism or pneumonia but did suggest the possibility of acute cholecystitis per the interpreting radiologist. Patient does not have any right upper quadrant pain on my exam however he does have some right-sided chest discomfort that at times is lower in the chest therefore I did obtain ultrasound imaging of the gallbladder that is nondiagnostic for acute cholecystitis per the interpreting radiologist. There is gallbladder distention however no stones are identified and Joseph sign is negative sonographically. No ductal dilatation is noted. Upon my reevaluation the patient became acutely tachycardic with some shortness of breath, heart rate is persistently elevated at about 135 and he appears to be in sinus rhythm on the monitor. Patient did spike a fever to 39.4. Oxygen saturation went down to 87% on room air and the patient was placed on nasal cannula oxygen with good improvement. Patient was given a dose of IV diltiazem given his persistent tachycardia in the range of 135 over concern for possible atrial flutter, heart rate did downtrend and he appears to remain in sinus rhythm on the monitor. Given the patient's change in vital signs and fever of unknown origin, I did obtain CT imaging of the abdomen pelvis without contrast that does suggest severe acute cholecystitis. Patient oddly remains without any abdominal pain on exam. I did then discussed the findings on CT AP with on-call general surgery for Dr. Macias, Destiny Miranda PA-C (at approximately 3:45 PM). She did discuss the patient's presentation with Dr. Macias and informs me that he would be in to evaluate the patient and they recommended admission to the medicine service for the patient's other ongoing issues including hypoxia, tachycardia, and chronic comorbidities. Case was then discussed with the on- call hospitalist, Dr. Donnelly, and the patient was placed for admission in stable condition pending general surgery evaluation for definitive care. Consultants/Discussions held with other healthcare providers: -General Surgery, Dr. Macias -Hospitalist, Dr. Donnelly * CRITICAL CARE TIME: ( 55 ) minutes -Stabilization of patient with hypoxia at 87% on room air requiring supplemental oxygen for correction, time spent at the bedside in management and diagnosis of patient with severe acute cholecystitis requiring general surgery consultation, discussion with other healthcare providers and arrangement of admission. Diagnosis: 1. Acute cholecystitis 2. Nonspecific chest discomfort, acute 3. Fever, acute 4. Hypoxia, acute, nonspecific Disposition: Admission Prosper Carlin DO Emergency Medicine Past Med/Surg History Problem List Acute cholecystitis (Acute) CYNTHIA on CPAP MDD (major depressive disorder), single episode, moderate Premature atrial beats Allergic rhinitis Hypertension (Acute) controlled, stable per pt Type 2 diabetes mellitus with obesity Diabetic neuropathy Hyperlipidemia (Chronic) Gagnon's esophagus (Acute) EGD 06/2023, Followed by GI, Dr. Montiel Esophageal dysphagia EGD 11/2019 Acid reflux disease (Acute) controlled, stable per pt Anemia History of malignant neuroendocrine tumor pt unaware Depression Mild emphysema (Acute) well controlled; last rescue inhaler use 3 days ago; pt reports average use of 1-2 times/week Cough variant asthma Exertional dyspnea Rotator cuff arthropathy of left shoulder Status post reverse total replacement of right shoulder (~04/2023) Medical History Obesity (BMI 30-39.9) Rib fracture History of COVID-19 History of colon polyps Lung nodule B12 deficiency Nephrolithiasis Adrenal nodule Surgical History History of surgery on left wrist (~04/2021) History of bronchoscopy History of esophagogastroduodenoscopy (EGD) History of open reduction and internal fixation (ORIF) procedure History of total left knee replacement (TKR) History of total right knee replacement (TKR) History of lithotripsy History of colonoscopy History of tooth extraction Status post biopsy of thyroid gland History of lung surgery Family History Mother Cardiac disorder Diabetes Myocardial infarction Father Diabetes Myocardial infarction Brother Stroke Aunt Breast cancer Other No family history of adverse response to anesthesia Denies family history of Ovarian cancer Prostate cancer Lung cancer Colorectal cancer Social History Smoking Status: Former smoker Tobacco Type: Cigarettes Age Started Using Tobacco: 18; Age Quit Using Tobacco: 29; packs per day: 0.5; Second Hand Exposure: No; Do You Dip or Chew Tobacco: No; Hx Alcohol Use: No Hx Substance Use: No Preferred Language: Arabic Communication Ability: Effective Visual Impairment: Limited Hearing Ability: Use of Hearing Aid Recooperer Required: No Beliefs That Will Affect Care: None marital status: Current Living Situation: Spouse and Family Current Living Situation Comment: Lives with and granddaughter and great grandson current occupational status: retired How many Children do You have: 2 Feels Safe at Home: Yes Childhood Exposure to Second-Hand Smoke: Yes Diet: regular caffeine: Yes (3 cups of coffee daily ) during the past year weight has: increased > 10 lbs Dental Care, Regularly: Yes Physical Activity Frequency: Daily Seatbelt Use: always Sunscreen Use: Yes Assistive Devices: Glasses and Hearing Aid - Bilateral Allergies Allergies Allergy/AdvReac Type Severity Reaction Status Date / Time Penicillins Allergy Severe throat Verified 08/23/24 11:35 swelling, hives fenofibrate Allergy Intermediate HIVES Verified 08/23/24 11:35 lisinopril AdvReac Mild cough Verified 08/23/24 11:35 Home Meds Home Medications Medication Instructions Recorded Confirmed aspirin 81 mg tablet,delayed 81 mg PO HS 11/20/18 08/23/24 release (Facundo Low Dose Aspirin) cholecalciferol (vitamin D3) 50 2,000 units PO QAM 11/20/18 08/23/24 mcg (2,000 unit) tablet (Vitamin D3) omega-3 acid ethyl esters 1 gram 1 cap PO HS 05/04/19 08/23/24 capsule (Lovaza) calcium carbonate (Calcium 600) 600 mg PO HS 01/21/20 08/23/24 budesonide-formoterol HFA 80 2 puff inhalation BID PRN 04/29/23 08/23/24 mcg-4.5 mcg/actuation aerosol Shortness Of Breath Or Wheezing inhaler (Symbicort) chlorthalidone 25 mg tablet 12.5 mg PO HS 08/23/24 08/23/24 mirtazapine 7.5 mg tablet 7.5 mg PO HS 08/23/24 08/23/24 trazodone 50 mg tablet 50 mg PO HS 08/23/24 08/23/24 Previous Rx's Medication Instructions Recorded albuterol sulfate 90 mcg/actuation 2 puff inhalation Q6H PRN 09/15/21 aerosol inhaler (Ventolin HFA) shortness of breath or wheezing #8.5 grams atorvastatin 20 mg tablet 20 mg PO HS #90 tabs 06/26/23 gabapentin 300 mg capsule See Rx Instructions .Route 06/26/23 .COMPLEX #360 caps losartan 25 mg tablet (Cozaar) 25 mg PO QAM #90 tabs 06/26/23 omeprazole 40 mg capsule,delayed 40 mg PO BID #180 caps 06/26/23 release metformin 500 mg tablet 1,000 mg (2 x 500 mg) PO BID #360 12/04/23 tabs Auto Titrating CPAP #1 ea 03/13/24 CPAP Supplies #1 ea 03/13/24 cyanocobalamin (vitamin B-12) 1,000 mcg IM MONTHLY #1 ea 03/27/24 1,000 mcg/mL injection kit sitagliptin phosphate 100 mg 100 mg PO QAM #90 tabs 07/03/24 tablet (Januvia) bupropion HCl 300 mg 24 hr tablet, 300 mg PO QAM #90 tabs 07/16/24 extended release syringe with needle, safety 3 mL #5 ea 08/13/24 25 gauge x 5/8" (BD Integra Syringe) Results & Data (ED) Vital Signs Vital Signs - 24 hr 08/23/24 08:15 08/23/24 08:31 08/23/24 08:31 Temperature 36.9 C Temperature Source Skin Pulse Rate 86 Pulse Rate [Apical] Pulse Rate from SpO2 Sensor Pulse Rhythm Respiratory Rate 20 Respiratory Effort / Characteristics Non-Labored Spontaneous Non-Labored Spontaneous Respiratory Depth Normal Normal Respiratory Pattern Regular Regular Blood Pressure 189/83 H Blood Pressure [Right Arm] Blood Pressure Mean 118 Blood Pressure Mean [Right Arm] Blood Pressure Position [Right Arm] Pulse Oximetry 94 Oxygen Delivery Method Room Air Room Air Room Air Oxygen Flow Rate Sepsis Recent Fever Within 48 Hours No Sepsis New/Unexplained Change in Mental Status N/A Sepsis Action Taken by Nursing No Action Required Oxygen Flow Rate - Titration Pulse Oximetry Post Tiitration 08/23/24 09:30 08/23/24 09:31 08/23/24 10:00 Temperature Temperature Source Pulse Rate 84 88 Pulse Rate [Apical] Pulse Rate from SpO2 Sensor 86 Pulse Rhythm Regular Respiratory Rate 23 21 Respiratory Effort / Characteristics Respiratory Depth Respiratory Pattern Blood Pressure 139/83 144/83 H Blood Pressure [Right Arm] Blood Pressure Mean 101 104 Blood Pressure Mean [Right Arm] Blood Pressure Position [Right Arm] Pulse Oximetry 94 94 Oxygen Delivery Method Room Air Room Air Oxygen Flow Rate Sepsis Recent Fever Within 48 Hours Sepsis New/Unexplained Change in Mental Status Sepsis Action Taken by Nursing Oxygen Flow Rate - Titration Pulse Oximetry Post Tiitration 08/23/24 10:09 08/23/24 11:09 08/23/24 11:12 Temperature Temperature Source Pulse Rate 89 88 Pulse Rate [Apical] Pulse Rate from SpO2 Sensor 91 H 85 92 H Pulse Rhythm Respiratory Rate 24 25 H Respiratory Effort / Characteristics Respiratory Depth Respiratory Pattern Blood Pressure Blood Pressure [Right Arm] Blood Pressure Mean Blood Pressure Mean [Right Arm] Blood Pressure Position [Right Arm] Pulse Oximetry 95 Oxygen Delivery Method Room Air Oxygen Flow Rate Sepsis Recent Fever Within 48 Hours Sepsis New/Unexplained Change in Mental Status Sepsis Action Taken by Nursing Oxygen Flow Rate - Titration Pulse Oximetry Post Tiitration 08/23/24 11:42 08/23/24 11:50 08/23/24 12:17 Temperature Temperature Source Pulse Rate 87 104 H Pulse Rate [Apical] Pulse Rate from SpO2 Sensor 89 106 H Pulse Rhythm Respiratory Rate 17 22 Respiratory Effort / Characteristics Respiratory Depth Respiratory Pattern Blood Pressure 154/109 H Blood Pressure [Right Arm] Blood Pressure Mean 114 Blood Pressure Mean [Right Arm] Blood Pressure Position [Right Arm] Pulse Oximetry 95 95 Oxygen Delivery Method Oxygen Flow Rate Sepsis Recent Fever Within 48 Hours Sepsis New/Unexplained Change in Mental Status Sepsis Action Taken by Nursing Oxygen Flow Rate - Titration Pulse Oximetry Post Tiitration 08/23/24 12:29 08/23/24 12:30 08/23/24 12:32 Temperature Temperature Source Pulse Rate 103 H 106 H Pulse Rate [Apical] Pulse Rate from SpO2 Sensor 102 H 105 H Pulse Rhythm Respiratory Rate 25 H 26 H Respiratory Effort / Characteristics Respiratory Depth Respiratory Pattern Blood Pressure 146/92 H Blood Pressure [Right Arm] Blood Pressure Mean 108 Blood Pressure Mean [Right Arm] Blood Pressure Position [Right Arm] Pulse Oximetry 92 93 Oxygen Delivery Method Oxygen Flow Rate Sepsis Recent Fever Within 48 Hours Sepsis New/Unexplained Change in Mental Status Sepsis Action Taken by Nursing Oxygen Flow Rate - Titration Pulse Oximetry Post Tiitration 08/23/24 13:13 08/23/24 13:14 08/23/24 13:17 Temperature Temperature Source Pulse Rate 133 H Pulse Rate [Apical] Pulse Rate from SpO2 Sensor 132 H Pulse Rhythm Respiratory Rate 34 H Respiratory Effort / Characteristics Respiratory Depth Respiratory Pattern Blood Pressure 138/94 Blood Pressure [Right Arm] Blood Pressure Mean 101 Blood Pressure Mean [Right Arm] Blood Pressure Position [Right Arm] Pulse Oximetry 87 L 87 L Oxygen Delivery Method Room Air Room Air Oxygen Flow Rate Sepsis Recent Fever Within 48 Hours Sepsis New/Unexplained Change in Mental Status Sepsis Action Taken by Nursing Oxygen Flow Rate - Titration 2 Pulse Oximetry Post Tiitration 92 08/23/24 13:41 08/23/24 13:47 08/23/24 13:53 Temperature Temperature Source Pulse Rate 143 H 140 H Pulse Rate [Apical] 132 H Pulse Rate from SpO2 Sensor 143 H 138 H Pulse Rhythm Respiratory Rate 21 24 24 Respiratory Effort / Characteristics Non-Labored Spontaneous Respiratory Depth Normal Respiratory Pattern Regular Blood Pressure Blood Pressure [Right Arm] 132/77 Blood Pressure Mean Blood Pressure Mean [Right Arm] 95 Blood Pressure Position [Right Arm] Lying Pulse Oximetry 92 93 93 Oxygen Delivery Method Nasal Cannula Oxygen Flow Rate 4 Sepsis Recent Fever Within 48 Hours Sepsis New/Unexplained Change in Mental Status Sepsis Action Taken by Nursing Oxygen Flow Rate - Titration Pulse Oximetry Post Tiitration 08/23/24 13:57 08/23/24 14:00 08/23/24 14:10 Temperature 39.4 C H Temperature Source Oral Pulse Rate Pulse Rate [Apical] Pulse Rate from SpO2 Sensor Pulse Rhythm Respiratory Rate Respiratory Effort / Characteristics Respiratory Depth Respiratory Pattern Blood Pressure 109/72 115/77 Blood Pressure [Right Arm] Blood Pressure Mean 79 85 Blood Pressure Mean [Right Arm] Blood Pressure Position [Right Arm] Pulse Oximetry Oxygen Delivery Method Oxygen Flow Rate Sepsis Recent Fever Within 48 Hours Sepsis New/Unexplained Change in Mental Status Sepsis Action Taken by Nursing Oxygen Flow Rate - Titration Pulse Oximetry Post Tiitration 08/23/24 15:44 Temperature Temperature Source Pulse Rate Pulse Rate [Apical] 104 H Pulse Rate from SpO2 Sensor Pulse Rhythm Respiratory Rate 18 Respiratory Effort / Characteristics Respiratory Depth Respiratory Pattern Blood Pressure Blood Pressure [Right Arm] 138/91 Blood Pressure Mean Blood Pressure Mean [Right Arm] 106 Blood Pressure Position [Right Arm] Pulse Oximetry 97 Oxygen Delivery Method Oxygen Flow Rate Sepsis Recent Fever Within 48 Hours Sepsis New/Unexplained Change in Mental Status Sepsis Action Taken by Nursing Oxygen Flow Rate - Titration Pulse Oximetry Post Tiitration Laboratory Data 08/23/24 08:23 08/23/24 08:23 Lab Results 08/23/24 08/23/24 08/23/24 Range/Units 08:23 08:25 08:27 WBC 11.53 H (4.8-10.8) K/ul RBC 4.67 L (4.70-6.10) M/uL Hgb 13.2 L (14.0-18.0) g/dl Hct 41.2 L (42.0-52.0) % MCV 88.2 (80.0-100.0) fL MCH 28.3 (25.0-34.0) pg MCHC 32.0 (32.0-36.0) g/dL RDW Std Deviation 43.8 (36.4-46.3) fL RDW Coeff of Abelardo 13.5 (11.5-14.5) % Plt Count 175 (130-400) K/uL MPV 9.3 L (9.4-12.4) fL Immature Gran % (Auto) 0.6 % Neut % (Auto) 85.0 % Lymph % (Auto) 4.9 % [place] % (Auto) 9.3 % Eos % (Auto) 0.0 % Baso % (Auto) 0.2 % Neut # (Auto) 9.80 H (1.40-6.50) K/uL Lymph # (Auto) 0.57 L (1.20-3.40) K/uL [place] # (Auto) 1.07 H (0.11-0.59) K/uL Eos # (Auto) 0.00 (0.00-0.50) K/uL Baso # (Auto) 0.02 (0.00-0.20) K/uL Immature Gran # (Auto) 0.07 (0.01-0.20) K/uL PT 11.0 (9.0-12.0) Seconds INR 1.0 (0.9-1.1) Sodium 134 L (136-145) mmol/L Potassium 3.7 (3.5-5.1) mmol/L Chloride 97 L (98-107) mmol/L Carbon Dioxide 30 (21-32) mmol/L Anion Gap 7 (3-11) BUN 15 (6-23) mg/dl Creatinine 0.97 (0.6-1.4) mg/dl Est Cr Clr Drug Dosing 68.8 ml/min eGFR 82.94 BUN/Creatinine Ratio 15.5 (10-20) Glucose 165 H (70-99(Fasting)) mg/dl Lactate (0.4-2.0) mmol/L Calcium 9.5 (8.6-10.3) mg/dl Total Bilirubin 0.9 (0.2-1.0) mg/dl AST 18 (13-39) U/L ALT 14 (7-52) U/L Alkaline Phosphatase 58 (34-104) U/L Troponin I High Sens 11.6 (0-20) pg/ml B-Natriuretic Peptide 65 (0-100) pg/ml Total Protein 6.9 (6.0-8.3) gm/dl Albumin 4.2 (3.4-5.0) gm/dl Globulin 2.7 (2.5-4.0) gm/dl Albumin/Globulin Ratio 1.6 (0.9-2) Urine Color Yellow Urine Appearance Clear (Clear) Urine pH 7.0 (4.5-7.5) Ur Specific [place] 1.018 (1.000-1.030) Urine Protein 1+ H (Negative) Urine Glucose (UA) Negative (Negative) Urine Ketones 1+ H (Negative) Urine Blood Negative (Negative) Urine Nitrite Negative (Negative) Urine Bilirubin Negative (Negative) Urine Urobilinogen Negative (Negative) Ur Leukocyte Esterase Negative (Negative) Urine WBC (Auto) 0-5 (0-5) /hpf Urine RBC (Auto) 0-2 (0-2) /hpf U Hyaline Cast (Auto) 0-2 (0-2) /lpf U Epithel Cells (Auto) 0-2 (0-2) /hpf Urine Bacteria (Auto) None Seen (None Seen) Adenovirus (PCR) Not Detected (NotDetected) B. pertussis DNA (PCR) Not Detected (NotDetected) B.parapertussis DNA PCR Not Detected (NotDetected) C. pneumoniae DNA (PCR) Not Detected (NotDetected) Coronavirus OC43 (PCR) Not Detected (NotDetected) Coronavirus HKU1 (PCR) Not Detected (NotDetected) Coronavirus 229E (PCR) Not Detected (NotDetected) SARS-CoV-2 (PCR) Not Detected (NotDetected) Coronavirus NL63 (PCR) Not Detected (NotDetected) Human Metapneumovir PCR Not Detected (NotDetected) Influenza Type A (PCR) Not Detected (NotDetected) Influenza Type B (PCR) Not Detected (NotDetected) M. pneumoniae (PCR) Not Detected (NotDetected) Parainfluenza 1 (PCR) Not Detected (NotDetected) Parainfluenza 2 (PCR) Not Detected (NotDetected) Parainfluenza 3 (PCR) Not Detected (NotDetected) Parainfluenza 4 (PCR) Not Detected (NotDetected) RSV (PCR) Not Detected (NotDetected) Entero/Rhino (PCR) Not Detected (NotDetected) 08/23/24 08/23/24 Range/Units 10:11 14:05 WBC (4.8-10.8) K/ul RBC (4.70-6.10) M/uL Hgb (14.0-18.0) g/dl Hct (42.0-52.0) % MCV (80.0-100.0) fL MCH (25.0-34.0) pg MCHC (32.0-36.0) g/dL RDW Std Deviation (36.4-46.3) fL RDW Coeff of Abelardo (11.5-14.5) % Plt Count (130-400) K/uL MPV (9.4-12.4) fL Immature Gran % (Auto) % Neut % (Auto) % Lymph % (Auto) % [place] % (Auto) % Eos % (Auto) % Baso % (Auto) % Neut # (Auto) (1.40-6.50) K/uL Lymph # (Auto) (1.20-3.40) K/uL [place] # (Auto) (0.11-0.59) K/uL Eos # (Auto) (0.00-0.50) K/uL Baso # (Auto) (0.00-0.20) K/uL Immature Gran # (Auto) (0.01-0.20) K/uL PT (9.0-12.0) Seconds INR (0.9-1.1) Sodium (136-145) mmol/L Potassium (3.5-5.1) mmol/L Chloride (98-107) mmol/L Carbon Dioxide (21-32) mmol/L Anion Gap (3-11) BUN (6-23) mg/dl Creatinine (0.6-1.4) mg/dl Est Cr Clr Drug Dosing ml/min eGFR BUN/Creatinine Ratio (10-20) Glucose (70-99(Fasting)) mg/dl Lactate 1.0 (0.4-2.0) mmol/L Calcium (8.6-10.3) mg/dl Total Bilirubin (0.2-1.0) mg/dl AST (13-39) U/L ALT (7-52) U/L Alkaline Phosphatase (34-104) U/L Troponin I High Sens 10.3 (0-20) pg/ml B-Natriuretic Peptide (0-100) pg/ml Total Protein (6.0-8.3) gm/dl Albumin (3.4-5.0) gm/dl Globulin (2.5-4.0) gm/dl Albumin/Globulin Ratio (0.9-2) Urine Color Urine Appearance (Clear) Urine pH (4.5-7.5) Ur Specific [place] (1.000-1.030) Urine Protein (Negative) Urine Glucose (UA) (Negative) Urine Ketones (Negative) Urine Blood (Negative) Urine Nitrite (Negative) Urine Bilirubin (Negative) Urine Urobilinogen (Negative) Ur Leukocyte Esterase (Negative) Urine WBC (Auto) (0-5) /hpf Urine RBC (Auto) (0-2) /hpf U Hyaline Cast (Auto) (0-2) /lpf U Epithel Cells (Auto) (0-2) /hpf Urine Bacteria (Auto) (None Seen) Adenovirus (PCR) (NotDetected) B. pertussis DNA (PCR) (NotDetected) B.parapertussis DNA PCR (NotDetected) C. pneumoniae DNA (PCR) (NotDetected) Coronavirus OC43 (PCR) (NotDetected) Coronavirus HKU1 (PCR) (NotDetected) Coronavirus 229E (PCR) (NotDetected) SARS-CoV-2 (PCR) (NotDetected) Coronavirus NL63 (PCR) (NotDetected) Human Metapneumovir PCR (NotDetected) Influenza Type A (PCR) (NotDetected) Influenza Type B (PCR) (NotDetected) M. pneumoniae (PCR) (NotDetected) Parainfluenza 1 (PCR) (NotDetected) Parainfluenza 2 (PCR) (NotDetected) Parainfluenza 3 (PCR) (NotDetected) Parainfluenza 4 (PCR) (NotDetected) RSV (PCR) (NotDetected) Entero/Rhino (PCR) (NotDetected) Administered Medications Discontinued Medications Acetaminophen (Acetaminophen 325 Mg Tab) 650 mg PO NOW STA Stop: 08/23/24 08:36 Last Admin: 08/23/24 09:28 Dose: 650 mg Documented By: ELENA Diltiazem HCl (Diltiazem Hcl 5 Mg/Ml 5 Ml Vial) 10 mg IV NOW STA Stop: 08/23/24 13:49 Last Admin: 08/23/24 13:54 Dose: 10 mg Documented By: ASHLEY Co-signed By: TIM Sodium Chloride (Nss) 1,000 mls @ 999 mls/hr IV .Q1H1M ONE Stop: 08/23/24 10:51 Last Infusion: 08/23/24 11:44 Dose: Infused Documented By: Admin: 08/23/24 10:18 Dose: 999 mls/hr Documented By: ELENA Sodium Chloride (Nss) 1,000 mls @ 999 mls/hr IV .Q1H1M ONE Stop: 08/23/24 15:01 Last Infusion: 08/23/24 15:53 Dose: Infused Documented By: Admin: 08/23/24 14:22 Dose: 999 mls/hr Documented By: ASHLEY Ertapenem (Invanz 1000mg) 1,000 mg in 10 mls @ 2 mls/min IV NOW STA Stop: 08/23/24 14:16 Last Admin: 08/23/24 14:23 Dose: 2 mls/min Documented By: ASHLEY Ioversol (Optiray 320 125ml) 112 ml IV ONCE ONE Stop: 08/23/24 10:57 Last Admin: 08/23/24 10:56 Dose: 112 ml Documented By: HERMILO Imaging Data Radiologist's Impression: Chest X-Ray 08/23/24 08:34 XR chest 1V portable CLINICAL HISTORY: Dyspnea COMPARISON STUDY: Chest radiograph March 26, 2023. Chest CT December 24, 2023. FINDINGS: Right shoulder arthroplasty is incidentally noted. Linear left basilar density represents atelectasis or scarring. Cardiomediastinal silhouette is stable. There is no evidence for pulmonary edema. There is no consolidation to suggest pneumonia. IMPRESSION: No acute cardiopulmonary findings. No significant change in appearance of the chest. ACT 112: Negative or not required by law. Electronically signed by: Bertrand Ruiz M.D. 08/23/2024 9:11 AM Chest CTA 08/23/24 09:51 CT ANGIOGRAPHY OF THE CHEST, PULMONARY EMBOLUS PROTOCOL CLINICAL HISTORY: Shortness of breath and chest pain. Evaluate for pulmonary embolus. COMPARISON STUDY: Chest CT December 24, 2023. TECHNIQUE: Following IV administration of 112 mL of Optiray, helical axial images of the chest were obtained utilizing the pulmonary embolus protocol. Maximal intensity projections and sagittal and coronal reformats were viewed on an independent 3D workstation. IV contrast was administered without complication. Automated exposure control was utilized for the study. A dose lowering technique was utilized adhering to the principles of ALARA. CT DOSE: 671.35 mGy.cm FINDINGS: No pulmonary emboli are identified although segmental and subsegmental pulmonary arteries are suboptimally assessed due to respiratory motion. The heart is moderately enlarged. Moderate coronary artery calcification is present. There is no pericardial effusion. No pneumothorax or pleural effusion is present. No consolidation is identified to suggest pneumonia. Groundglass opacities and linear densities suggestive atelectasis. A few small pulmonary nodules are unchanged. There are no suspicious pulmonary nodules. Gallbladder is partially imaged on this exam however the gallbladder is likely distended with adjacent stranding which extends into the carlos hepatis. A 2.1 cm left adrenal nodule is unchanged since CT of June 16, 2021. This is likely benign. IMPRESSION: 1. No pulmonary emboli identified although segmental and subsegmental pulmonary arteries suboptimally assessed due to respiratory motion. 2. Findings suspicious for acute cholecystitis however gallbladder only partially imaged on this exam. A CT of the abdomen or right upper quadrant ultrasound is recommended for confirmation. 3. No consolidation to suggest pneumonia. ACT 112: Negative or not required by law. Electronically signed by: Bertrand Ruiz M.D. 08/23/2024 11:34 AM Gallbladder Ultrasound 08/23/24 11:49 US gallbladder CLINICAL HISTORY: Epigastric pain/chest pain. COMPARISON STUDY: CT of the abdomen and pelvis June 16, 2021. Chest CT August 23, 2024. FINDINGS: The liver is sonographically normal. There is no biliary ductal dilatation. The gallbladder is moderately distended. The wall is mildly thickened. No sonographic Joseph sign was elicited. No gallstones were identified. The pancreas is obscured. No right hydronephrosis is present. There is a 4.9 cm right renal cyst. IMPRESSION: 1. Gallbladder distention with mild gallbladder wall thickening. However, no gallstones or sonographic Joseph sign. If right upper quadrant pain, a CT of the abdomen is recommended to exclude acute cholecystitis. 2. No biliary ductal dilatation. 3. Obscured pancreas. ACT 112: Negative or not required by law. Electronically signed by: Bertrand Ruiz M.D. 08/23/2024 1:26 PM Abdomen/Pelvis CT 08/23/24 13:33 CT SCAN OF THE ABDOMEN AND PELVIS WITHOUT IV CONTRAST CLINICAL HISTORY: Epigastric abdominal pain. Constipation. COMPARISON STUDY: Abdominal CT dated 06/16/2021. TECHNIQUE: CT scan of the abdomen and pelvis is performed from the lung bases to the proximal femora. Images are reviewed in the axial, sagittal, and coronal planes. IV contrast was not administered for this examination. Note that the examination was performed in suboptimal fashion without oral and IV contrast. A dose lowering technique was utilized adhering to the principles of ALARA. CT DOSE: 1133.94 mGy.cm FINDINGS: Lung bases: The heart is normal in size and without pericardial effusion. The coronary arteries are densely calcified. There is trace right pleural effusion. Dependent scarring/atelectasis is noted at both lung bases. Postoperative changes seen at the right lung base. Liver: The unenhanced liver is normal in size, contour, and attenuation. There is no intrahepatic biliary ductal dilatation. Gallbladder: The gallbladder is markedly distended. The gallbladder wall is thickened and edematous, with surrounding inflammation and fluid. Findings are consistent with acute cholecystitis. Spleen: Normal in size and attenuation. Pancreas: The unenhanced pancreas is mildly atrophic and grossly unremarkable. Adrenal glands: An indeterminant 2.4 cm left adrenal nodule is similar to previous. The right adrenal gland is normal in appearance. Kidneys: The unenhanced kidneys are normal in size and without hydronephrosis. Excreted IV contrast is seen in the renal collecting systems and ureters. This degrades assessment for renal calculi. Bilateral renal cysts measure up to 6.6 cm. Abdominal vasculature: The abdominal aorta is normal in course and caliber. Bowel: There is moderate colonic fecal retention. No bowel obstruction is seen. There is mild colonic diverticulosis without CT evidence of acute diverticulitis. The appendix is well-visualized and normal. Peritoneum: There is no intraperitoneal free air or abdominal ascites. Lymphadenopathy: None. Pelvic viscera: The prostate gland is enlarged and heterogeneous. The bladder wall appears thickened/trabeculated indicating chronic outlet obstruction. The bladder is filled with excreted IV contrast. Skeletal structures: The skeletal structures are osteopenic. There is moderate to advanced lumbosacral spondylosis. No lytic or blastic lesions are seen. IMPRESSION: 1. Suboptimal examination without oral and IV contrast. 2. Severe acute cholecystitis. Surgical evaluation is advised. 3. Trace right pleural effusion. 4. Additional findings as above. ACT 112: Negative or not required by law. Electronically signed by: Beto Brand M.D. 08/23/2024 3:25 PM Discharge Plan Visit Data Chief Complaint: Shortness of Breath/Dyspnea Stated Complaint: SOB, CHEST PAIN, DIZZY, CHILLS ED Provider: Prosper Carlin Discharge Problem: Acute cholecystitis Forms Stand Alone Forms: [facility] Prescriptions Prescriptions: No Action albuterol sulfate [Ventolin HFA] 90 mcg/actuation HFA aerosol inhaler 2 puff INH Q6H PRN (Reason: shortness of breath or wheezing) Qty: 8.5 2RF atorvastatin 20 mg tablet 20 mg PO HS Qty: 90 3RF Rx Instructions: TAKE 1 TABLET AT BEDTIME gabapentin 300 mg capsule See Rx Instructions .ROUTE .COMPLEX Qty: 360 3RF Dose Instruction: TAKE 1 CAPSULE TWICE A DAY, AND 2 CAPSULES AT BEDTIME Rx Instructions: Take 300mg in the morning and noon time. Then take 600mg at bedtime losartan [Cozaar] 25 mg tablet 25 mg PO QAM Qty: 90 3RF omeprazole 40 mg capsule,delayed release(DR/EC) 40 mg PO BID Qty: 180 3RF metformin 500 mg tablet 1,000 mg PO BID Qty: 360 3RF cyanocobalamin (vitamin B-12) 1,000 mcg/mL kit 1,000 mcg IM MONTHLY Qty: 1 12RF Januvia 100 mg tablet 100 mg PO QAM Qty: 90 3RF Rx Instructions: TAKE 1 TABLET EVERY MORNING bupropion HCl 300 mg tablet extended release 24 hr 300 mg PO QAM Qty: 90 1RF (DME) BD Integra Syringe 3 mL 25 gauge x 5/8" syringe See Rx Instructions .Route Qty: 5 3RF Rx Instructions: As directed calcium carbonate [Calcium 600] 600 mg calcium (1,500 mg) tablet 600 mg PO HS omega-3 acid ethyl esters [Lovaza] 1 gram capsule 1 cap PO HS (DME) CPAP Supplies Misc See Rx Instructions .Route Qty: 1 0RF Rx Instructions: As directed- all supplies (DME) Auto Titrating CPAP Misc See Rx Instructions .Route Qty: 1 0RF Rx Instructions: 5-15 cmH20 auto titrating humidified aspirin [Facundo Low Dose Aspirin] 81 mg Tablet,Delayed Release (Dr/Ec) 81 mg PO HS cholecalciferol (vitamin D3) [Vitamin D3] 2,000 unit Tablet 2,000 units PO QAM budesonide-formoterol [Symbicort] 80-4.5 mcg/actuation HFA aerosol inhaler 2 puff inhalation BID PRN (Reason: Shortness Of Breath Or Wheezing) trazodone 50 mg tablet 50 mg PO HS chlorthalidone 25 mg tablet 12.5 mg PO HS mirtazapine 7.5 mg tablet 7.5 mg PO HS Referrals Referrals: Flakito Mayo DO [Primary Care Provider] -
[2024-08-23 08:55] LABS: Basophils # (auto) 0.02 K/uL (0.00-0.20); Basophils % (auto) 0.2 %; Hematocrit (blood only) 41.2 % (42.0-52.0); Hemoglobin 13.2 g/dl (14.0-18.0); Immature Granulocytes # (auto) 0.07 K/uL (0.01-0.20); Immature Granulocytes % (auto) 0.6 %; Lymphocytes # (auto) 0.57 K/uL (1.20-3.40); Lymphocytes % (auto) 4.9 %; Mean Corpuscular Hemoglobin 28.3 pg (25.0-34.0); Mean Corpuscular Volume 88.2 fL (80.0-100.0); Mean Platelet Volume 9.3 fL (9.4-12.4); Monocytes # (auto) 1.07 K/uL (0.11-0.59); Monocytes % (auto) 9.3 %; Platelet Count 175 K/uL (130-400); RDW Coefficient of Variation 13.5 % (11.5-14.5); RDW Standard Deviation 43.8 fL (36.4-46.3); Red Blood Count 4.67 M/uL (4.70-6.10); White Blood Count 11.53 K/ul (4.8-10.8)
[2024-08-23 08:58] LABS: Appearance Urine Clear (Clear); Bacteria Urine Automated None Seen (None Seen); Bilirubin Urine Negative (Negative); Blood Urine Negative (Negative); Cast Urine Automated 0-2 /lpf (0-2); Color Urine Yellow; Epithelial Cell Urine Auto 0-2 /hpf (0-2); Glucose Urine UA Negative (Negative); Ketones Urine 1+ (Negative); Leukocyte Esterase Urine Negative (Negative); Nitrite Urine Negative (Negative); Protein Urine 1+ (Negative); RBC Urine Automated 0-2 /hpf (0-2); Specific Gravity Urine 1.018 (1.000-1.030); Urobilinogen Urine Negative (Negative); WBC Urine Automated 0-5 /hpf (0-5)
[2024-08-23 09:12] LABS: Albumin Globulin Ratio 1.6 (0.9-2); Albumin Level 4.2 gm/dl (3.4-5.0); BUN Creatinine Ratio 15.5 (10-20); Bilirubin,Total 0.9 mg/dl (0.2-1.0); Calcium 9.5 mg/dl (8.6-10.3); Creatinine Clr Calc Pharmacy 68.8 ml/min; Globulin 2.7 gm/dl (2.5-4.0); Potassium 3.7 mmol/L (3.5-5.1); Total Protein 6.9 gm/dl (6.0-8.3)
--- NOTE | 2024-08-23 09:13 | XRay Report ---
XR chest 1V portable CLINICAL HISTORY: Dyspnea COMPARISON STUDY: Chest radiograph March 26, 2023. Chest CT December 24, 2023. FINDINGS: Right shoulder arthroplasty is incidentally noted. Linear left basilar density represents a telectasis or scarring. Cardiomediastinal silhouette is stable. There is no evidence for pulmonary ed kayleigh. There is no consolidation to suggest pneumonia. IMPRESSION: No acute cardiopulmonary findings. No significant change in appearance of the chest. ACT 112: Negative or not required by law. Electronically signed by: Bertrand Ruiz M.D. 08/23/2024 9:11 AM
[2024-08-23 09:18] LABS: Troponin I High Sensitivity 11.6 pg/ml (0-20)
[2024-08-23] MEDS: ACETAMINOPHEN 325 MG TAB PO STA (09:28)
[2024-08-23 09:43] LABS: Adenovirus PCR Not Detected (NotDetected); Bordetella parapertussis PCR Not Detected (NotDetected); Bordetella pertussis PCR Not Detected (NotDetected); Chlamydia pneumoniae PCR Not Detected (NotDetected); Coronavirus 229E PCR Not Detected (NotDetected); Coronavirus CoV-2 (COVID19)PCR Not Detected (NotDetected); Coronavirus HKU1 PCR Not Detected (NotDetected); Coronavirus NL63 PCR Not Detected (NotDetected); Coronavirus OC43PCR Not Detected (NotDetected); Human Metapneumovirus PCR Not Detected (NotDetected); Influenza A PCR Not Detected (NotDetected); Influenza B PCR Not Detected (NotDetected); Mycoplasma pneumoniae PCR Not Detected (NotDetected); Parainfluenza Virus 1 PCR Not Detected (NotDetected); Parainfluenza Virus 2 PCR Not Detected (NotDetected); Parainfluenza Virus 3 PCR Not Detected (NotDetected); Parainfluenza Virus 4 PCR Not Detected (NotDetected); Respiratory Syncytial VirusPCR Not Detected (NotDetected); Rhinovirus/Enterovirus PCR Not Detected (NotDetected)
[2024-08-23] MEDS: SODIUM CHLORIDE 0.9% 1,000 ML IV ONE ×2 (10:18→14:22)
[2024-08-23] MEDS: OPTIRAY 320 125ml IV ONE (10:56)
--- NOTE | 2024-08-23 11:37 | CT Scan Report ---
CT ANGIOGRAPHY OF THE CHEST, PULMONARY EMBOLUS PROTOCOL CLINICAL HISTORY: Shortness of breath and chest pain. Evaluate for pulmonary embolus. COMPARISON STUDY: Chest CT December 24, 2023. TECHNIQUE: Following IV administration of 112 mL of Optiray, helical axial images of the chest were o btained utilizing the pulmonary embolus protocol. Maximal intensity projections and sagittal and cor onal reformats were viewed on an independent 3D workstation. IV contrast was administered without co mplication. Automated exposure control was utilized for the study. A dose lowering technique was ut ilized adhering to the principles of ALARA. CT DOSE: 671.35 mGy.cm FINDINGS: No pulmonary emboli are identified although segmental and subsegmental pulmonary arteries are suboptimally assessed due to respiratory motion. The heart is moderately enlarged. Moderate coron alvaro artery calcification is present. There is no pericardial effusion. No pneumothorax or pleural eff usion is present. No consolidation is identified to suggest pneumonia. Groundglass opacities and line ar densities suggestive atelectasis. A few small pulmonary nodules are unchanged. There are no suspic ious pulmonary nodules. Gallbladder is partially imaged on this exam however the gallbladder is likel y distended with adjacent stranding which extends into the carlos hepatis. A 2.1 cm left adrenal nodul e is unchanged since CT of June 16, 2021. This is likely benign. IMPRESSION: 1. No pulmonary emboli identified although segmental and subsegmental pulmonary arteries suboptimally assessed due to respiratory motion. 2. Findings suspicious for acute cholecystitis however gallbladder only partially imaged on this exam . A CT of the abdomen or right upper quadrant ultrasound is recommended for confirmation. 3. No consolidation to suggest pneumonia. ACT 112: Negative or not required by law. Electronically signed by: Bertrand Ruiz M.D. 08/23/2024 11:34 AM
--- NOTE | 2024-08-23 13:28 | Ultrasound Report ---
US gallbladder CLINICAL HISTORY: Epigastric pain/chest pain. COMPARISON STUDY: CT of the abdomen and pelvis June 16, 2021. Chest CT August 23, 2024. FINDINGS: The liver is sonographically normal. There is no biliary ductal dilatation. The gallbladder is moderately distended. The wall is mildly thickened. No sonographic Joseph sign was elicited. No g allstones were identified. The pancreas is obscured. No right hydronephrosis is present. There is a 4 .9 cm right renal cyst. IMPRESSION: 1. Gallbladder distention with mild gallbladder wall thickening. However, no gallstones or sonographi c Joseph sign. If right upper quadrant pain, a CT of the abdomen is recommended to exclude acute chol ecystitis. 2. No biliary ductal dilatation. 3. Obscured pancreas. ACT 112: Negative or not required by law. Electronically signed by: Bertrand Ruiz M.D. 08/23/2024 1:26 PM
[2024-08-23] MEDS: dilTIAZem HCl 5 MG/ML 5 ML VIAL IV STA (13:54)
--- NOTE | 2024-08-23 13:54 | Electrocardiogram Report ---
Test Reason : Blood Pressure : */* mmHG Vent. Rate : 91 BPM Atrial Rate : 91 BPM P-R Int : 196 ms QRS Dur : 108 ms QT Int : 380 ms P-R-T Axes : 79 16 3 degrees QTcB Int : 467 ms Sinus rhythm with Premature atrial complexes Inferior infarct (cited on or before 14-Feb-2024) Abnormal ECG When compared with ECG of 14-Feb-2024 09:40, (unconfirmed) No significant change Confirmed by Maurizio Cosme ([id number]) on 08/23/2024 1:53:35 PM Referred By: REFERRED SELF Confirmed By: Maurizio Cosme
[2024-08-23] MEDS: ERTAPENEM 1000MG 1,000 MG/10 ML SYR IV STA (14:23)
--- NOTE | 2024-08-23 15:27 | CT Scan Report ---
CT SCAN OF THE ABDOMEN AND PELVIS WITHOUT IV CONTRAST CLINICAL HISTORY: Epigastric abdominal pain. Constipation. COMPARISON STUDY: Abdominal CT dated 06/16/2021. TECHNIQUE: CT scan of the abdomen and pelvis is performed from the lung bases to the proximal femora. Images are reviewed in the axial, sagittal, and coronal planes. IV contrast was not administered for this examination. Note that the examination was performed in suboptimal fashion without oral and IV contrast. A dose lowering technique was utilized adhering to the principles of ALARA. CT DOSE: 1133.94 mGy.cm FINDINGS: Lung bases: The heart is normal in size and without pericardial effusion. The coronary arteries are d ensely calcified. There is trace right pleural effusion. Dependent scarring/atelectasis is noted at b oth lung bases. Postoperative changes seen at the right lung base. Liver: The unenhanced liver is normal in size, contour, and attenuation. There is no intrahepatic aurora iary ductal dilatation. Gallbladder: The gallbladder is markedly distended. The gallbladder wall is thickened and edematous, with surrounding inflammation and fluid. Findings are consistent with acute cholecystitis. Spleen: Normal in size and attenuation. Pancreas: The unenhanced pancreas is mildly atrophic and grossly unremarkable. Adrenal glands: An indeterminant 2.4 cm left adrenal nodule is similar to previous. The right adrenal gland is normal in appearance. Kidneys: The unenhanced kidneys are normal in size and without hydronephrosis. Excreted IV contrast i s seen in the renal collecting systems and ureters. This degrades assessment for renal calculi. Bilat eral renal cysts measure up to 6.6 cm. Abdominal vasculature: The abdominal aorta is normal in course and caliber. Bowel: There is moderate colonic fecal retention. No bowel obstruction is seen. There is mild colonic diverticulosis without CT evidence of acute diverticulitis. The appendix is well-visualized and nor mal. Peritoneum: There is no intraperitoneal free air or abdominal ascites. Lymphadenopathy: None. Pelvic viscera: The prostate gland is enlarged and heterogeneous. The bladder wall appears thickened/ trabeculated indicating chronic outlet obstruction. The bladder is filled with excreted IV contrast. Skeletal structures: The skeletal structures are osteopenic. There is moderate to advanced lumbosacra l spondylosis. No lytic or blastic lesions are seen. IMPRESSION: 1. Suboptimal examination without oral and IV contrast. 2. Severe acute cholecystitis. Surgical evaluation is advised. 3. Trace right pleural effusion. 4. Additional findings as above. ACT 112: Negative or not required by law. Electronically signed by: Beto Brand M.D. 08/23/2024 3:25 PM
[2024-08-23] MEDS: SODIUM CHLORIDE 0.9% 500 ML IV ONE (16:35)
--- NOTE | 2024-08-23 16:43 | History & Physical Report ---
Date of Service August 23, 2024 Assessment & Plan (1) Acute cholecystitis: Plan: This is a 74-year-old gentleman with past medical history of hyperlipidemia, type 2 diabetes, diabetic neuropathy, obesity who presented to the ER on 08/23/2024 with a chief complaint of chest pain, fevers/chills x 2 days. Patient meets sepsis criteria with source being gallbladder. CBC consistent with leukocytosis (WBC 11.53) CMP consistent with mild hyponatremia (134), kidney function stable. LFTs WNL. Lactate 1.0 Troponin negative x 2 Urinalysis negative Tick panel negative Respiratory biofire negative EKG with premature atrial complexes, no change from previous EKG in 01/2024. Blood cultures pending CXR negative Chest CTA findings concerning for acute cholecystitis but negative for PE or pneumonia Gallbladder US: gallbladder distention w/ mild gallbladder wall thickening. CTAP did reval severe acute cholecystitis General surgery consulted, appreciate recommendations. plan is for patient to go to OR for cholecystectomy 08/23. s/p IV Ertapenem in ED (patient with PCN allergy) - continue Q24H Tylenol for pain or fever Morphine prn for severe pain. Zofran prn for N/V AM CBC, CMP (2) Sepsis: Plan: see plan above (3) Type 2 diabetes mellitus with obesity: Plan: hold outpatient diabetic medications Sliding scale while inpatient Range of 110-180mg/dl Correction factor of 25 tailor as needed. Last A1c 06/2024: 6.2% (4) Hypoxia: Plan Chronic conditions: HTN: hold outpatient medications while NPO Mental health: Bupropion, Mirtazapine HLD: statin Insomnia: Trazodone GERD: PPI Neuropathy: gabapentin Diet: NPO DVT prophylaxis: hold off until after surgery Code status: full Disposition: telemetry History of Present Illness Primary Care Provider: Flakito Mayo DO This is a 74-year-old gentleman with past medical history of hyperlipidemia, type 2 diabetes, diabetic neuropathy, obesity who presented to the ER on 08/23/2024 with a chief complaint of chest pain, fevers/chills x 2 days. The patient was seen and examined this afternoon. Patient's was at bedside. Patient was resting comfortably in bed at time of encounter and appeared in no acute distress. Patient was seen at an outside hospital facility yesterday and was discharged home after an unremarkable workup. Overnight he had then developed severe chills and had required multiple blankets to keep warm. He denied any fevers. He has been having right sided chest pain without radiation. He also has been having shortness of breath. Patient states that he does not have any history of COPD/asthma. He was on 4 L nasal cannula at time of my encounter. He denied nausea, vomiting. He did admit to right upper abdominal discomfort. He also states that he has not had a bowel movement in about 3 days which is abnormal for him. Denies any leg edema. He denies any urinary symptoms. While in the ED, patient was found to have severe acute cholecystitis on CT imaging. General surgery was consulted. He was given IV ertapenem. He was also febrile at 39.4 C. He was given Tylenol. Patient was also found to be tachycardic with heart rates as high as 143. He was also given 10 mg of diltiazem. Allergies Allergy/AdvReac Type Severity Reaction Status Date / Time Penicillins Allergy Severe throat Verified 08/23/24 11:35 swelling, hives fenofibrate Allergy Intermediate HIVES Verified 08/23/24 11:35 lisinopril AdvReac Mild cough Verified 08/23/24 11:35 Home Medications Medication Instructions Recorded Confirmed Type aspirin 81 mg tablet,delayed 81 mg PO HS 11/20/18 08/23/24 History release (Facundo Low Dose Aspirin) cholecalciferol (vitamin D3) 50 2,000 units PO QAM 11/20/18 08/23/24 History mcg (2,000 unit) tablet (Vitamin D3) omega-3 acid ethyl esters 1 gram 1 cap PO HS 05/04/19 08/23/24 History capsule (Lovaza) calcium carbonate (Calcium 600) 600 mg PO HS 01/21/20 08/23/24 History albuterol sulfate 90 mcg/actuation 2 puff inhalation Q6H PRN 09/15/21 08/23/24 Rx aerosol inhaler (Ventolin HFA) shortness of breath or wheezing #8.5 grams budesonide-formoterol HFA 80 2 puff inhalation BID PRN 04/29/23 08/23/24 History mcg-4.5 mcg/actuation aerosol Shortness Of Breath Or Wheezing inhaler (Symbicort) atorvastatin 20 mg tablet 20 mg PO HS #90 tabs 06/26/23 08/23/24 Rx gabapentin 300 mg capsule See Rx Instructions .Route 06/26/23 08/23/24 Rx .COMPLEX #360 caps losartan 25 mg tablet (Cozaar) 25 mg PO QAM #90 tabs 06/26/23 08/23/24 Rx omeprazole 40 mg capsule,delayed 40 mg PO BID #180 caps 06/26/23 08/23/24 Rx release metformin 500 mg tablet 1,000 mg (2 x 500 mg) PO BID #360 12/04/23 08/23/24 Rx tabs Auto Titrating CPAP #1 ea 03/13/24 07/29/24 Rx CPAP Supplies #1 ea 03/13/24 07/29/24 Rx cyanocobalamin (vitamin B-12) 1,000 mcg IM MONTHLY #1 ea 03/27/24 08/23/24 Rx 1,000 mcg/mL injection kit sitagliptin phosphate 100 mg 100 mg PO QAM #90 tabs 07/03/24 08/23/24 Rx tablet (Januvia) bupropion HCl 300 mg 24 hr tablet, 300 mg PO QAM #90 tabs 07/16/24 08/23/24 Rx extended release syringe with needle, safety 3 mL #5 ea 08/13/24 Rx 25 gauge x 5/8" (BD Integra Syringe) chlorthalidone 25 mg tablet 12.5 mg PO HS 08/23/24 08/23/24 History mirtazapine 7.5 mg tablet 7.5 mg PO HS 08/23/24 08/23/24 History trazodone 50 mg tablet 50 mg PO HS 08/23/24 08/23/24 History Past Med/Surg History Problem List Hypoxia Sepsis Acute cholecystitis (Acute) CYNTHIA on CPAP MDD (major depressive disorder), single episode, moderate Premature atrial beats Allergic rhinitis Hypertension (Acute) controlled, stable per pt Type 2 diabetes mellitus with obesity Diabetic neuropathy Hyperlipidemia (Chronic) Gagnon's esophagus (Acute) EGD 06/2023, Followed by GI, Dr. Montiel Esophageal dysphagia EGD 11/2019 Acid reflux disease (Acute) controlled, stable per pt Anemia History of malignant neuroendocrine tumor pt unaware Depression Mild emphysema (Acute) well controlled; last rescue inhaler use 3 days ago; pt reports average use of 1-2 times/week Cough variant asthma Exertional dyspnea Rotator cuff arthropathy of left shoulder Status post reverse total replacement of right shoulder (~04/2023) Medical History Obesity (BMI 30-39.9) Rib fracture subacute right anterior rib fractures on 12/[address], pt states has tenderness when chiropractor presses that area History of COVID-19 03/2022-denies hospitalization-symptoms resolved History of colon polyps Lung nodule reason for wedge resection - pt states it was benign B12 deficiency Nephrolithiasis Adrenal nodule Benign apearance on CT scan 2017 Surgical History History of surgery on left wrist (~04/2021) repair of tendon and removal of hardware History of bronchoscopy Dr. Rich History of esophagogastroduodenoscopy (EGD) History of open reduction and internal fixation (ORIF) procedure left wrist--hardware in place History of total left knee replacement (TKR) History of total right knee replacement (TKR) History of lithotripsy History of colonoscopy 04/2022 Repeat 5 yrs History of tooth extraction partial upper Status post biopsy of thyroid gland benign nodule History of lung surgery 2015 right lung--lower lobe wedge resection Family History Mother Cardiac disorder Diabetes Myocardial infarction Father Diabetes Myocardial infarction Brother Stroke Aunt Breast cancer Other No family history of adverse response to anesthesia Denies family history of Ovarian cancer Prostate cancer Lung cancer Colorectal cancer Social History Smoking Status: Former smoker Tobacco Type: Cigarettes Age Started Using Tobacco: 18; Age Quit Using Tobacco: 29; packs per day: 0.5; Second Hand Exposure: No; Do You Dip or Chew Tobacco: No; Hx Alcohol Use: No Hx Substance Use: No Preferred Language: Bahraini Communication Ability: Effective Visual Impairment: Limited Hearing Ability: Use of Hearing Aid 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 Insulation Required: No Beliefs That Will Affect Care: None marital status: Current Living Situation: Spouse Current Living Situation Comment: Lives with and granddaughter and great grandson current occupational status: retired How many Children do You have: 2 Feels Safe at Home: Yes Childhood Exposure to Second-Hand Smoke: Yes Diet: regular caffeine: Yes (3 cups of coffee daily ) during the past year weight has: increased > 10 lbs Dental Care, Regularly: Yes Physical Activity Frequency: Daily Seatbelt Use: always Sunscreen Use: Yes Assistive Devices: Glasses and Hearing Aid - Bilateral Physical Exam 2 Constitutional: WD/WN, vitals as above Eyes: PERRL, conjunctivae normal, anicteric sclerae Respiratory: normal respiratory effort, lungs clear to auscultation Cardiovascular: tachycardia, no murmur, no edema Gastrointestinal (Abdomen): + RUQ tenderness on palpation Skin: no rashes, warm and dry Psychiatric: A+Ox3, euthymic affect Results & Data Results & Data Vital Signs (Past 12 Hours) Vital Signs Temp Pulse Pulse Resp BP BP Pulse Ox 08/23/24 15:44 104 H 18 138/91 97 08/23/24 14:10 115/77 08/23/24 14:00 109/72 08/23/24 13:57 39.4 C H 08/23/24 13:53 132 H 24 132/77 93 08/23/24 13:47 140 H 24 93 08/23/24 13:41 143 H 21 92 08/23/24 13:17 87 L 08/23/24 13:14 133 H 34 H 87 L 08/23/24 13:13 138/94 08/23/24 12:32 106 H 26 H 93 08/23/24 12:30 146/92 H 08/23/24 12:29 103 H 25 H 92 08/23/24 12:17 104 H 22 95 08/23/24 11:50 87 17 95 08/23/24 11:42 154/109 H 08/23/24 11:12 88 25 H 08/23/24 10:09 89 24 95 08/23/24 10:00 144/83 H 08/23/24 09:31 88 21 94 08/23/24 09:30 84 23 139/83 94 08/23/24 08:31 08/23/24 08:31 08/23/24 08:15 36.9 C 86 20 189/83 H 94 O2 Del Method O2 Flow Rate 08/23/24 15:44 10/06/24 14:10 08/23/24 14:00 08/23/24 13:57 08/23/24 13:53 Nasal Cannula 4 08/23/24 13:47 08/23/24 13:41 08/23/24 13:17 Room Air 08/23/24 13:14 Room Air 08/23/24 13:13 08/23/24 12:32 08/23/24 12:30 08/23/24 12:29 08/23/24 12:17 08/23/24 11:50 08/23/24 11:42 08/23/24 11:12 08/23/24 10:09 Room Air 08/23/24 10:00 08/23/24 09:31 Room Air 08/23/24 09:30 Room Air 08/23/24 08:31 Room Air 08/23/24 08:31 Room Air 08/23/24 08:15 Room Air Laboratory Results 08/23/24 08:23 08/23/24 08:23 Diagnostic Findings Chest X-Ray 08/23/24 08:34 XR chest 1V portable CLINICAL HISTORY: Dyspnea COMPARISON STUDY: Chest radiograph March 26, 2023. Chest CT December 24, 2023. FINDINGS: Right shoulder arthroplasty is incidentally noted. Linear left basilar density represents atelectasis or scarring. Cardiomediastinal silhouette is stable. There is no evidence for pulmonary edema. There is no consolidation to suggest pneumonia. IMPRESSION: No acute cardiopulmonary findings. No significant change in appearance of the chest. Chest CTA 08/23/24 09:51 CT ANGIOGRAPHY OF THE CHEST, PULMONARY EMBOLUS PROTOCOL CLINICAL HISTORY: Shortness of breath and chest pain. Evaluate for pulmonary embolus. COMPARISON STUDY: Chest CT December 24, 2023. TECHNIQUE: Following IV administration of 112 mL of Optiray, helical axial images of the chest were obtained utilizing the pulmonary embolus protocol. Maximal intensity projections and sagittal and coronal reformats were viewed on an independent 3D workstation. IV contrast was administered without complication. Automated exposure control was utilized for the study. A dose lowering technique was utilized adhering to the principles of ALARA. CT DOSE: 671.35 mGy.cm FINDINGS: No pulmonary emboli are identified although segmental and subsegmental pulmonary arteries are suboptimally assessed due to respiratory motion. The heart is moderately enlarged. Moderate coronary artery calcification is present. There is no pericardial effusion. No pneumothorax or pleural effusion is present. No consolidation is identified to suggest pneumonia. Groundglass opacities and linear densities suggestive atelectasis. A few small pulmonary nodules are unchanged. There are no suspicious pulmonary nodules. Gallbladder is partially imaged on this exam however the gallbladder is likely distended with adjacent stranding which extends into the carlos hepatis. A 2.1 cm left adrenal nodule is unchanged since CT of June 16, 2021. This is likely benign. IMPRESSION: 1. No pulmonary emboli identified although segmental and subsegmental pulmonary arteries suboptimally assessed due to respiratory motion. 2. Findings suspicious for acute cholecystitis however gallbladder only partially imaged on this exam. A CT of the abdomen or right upper quadrant ultrasound is recommended for confirmation. 3. No consolidation to suggest pneumonia. Gallbladder Ultrasound 08/23/24 11:49 US gallbladder CLINICAL HISTORY: Epigastric pain/chest pain. COMPARISON STUDY: CT of the abdomen and pelvis June 16, 2021. Chest CT August 23, 2024. FINDINGS: The liver is sonographically normal. There is no biliary ductal dilatation. The gallbladder is moderately distended. The wall is mildly thickened. No sonographic Joseph sign was elicited. No gallstones were identified. The pancreas is obscured. No right hydronephrosis is present. There is a 4.9 cm right renal cyst. IMPRESSION: 1. Gallbladder distention with mild gallbladder wall thickening. However, no gallstones or sonographic Joseph sign. If right upper quadrant pain, a CT of the abdomen is recommended to exclude acute cholecystitis. 2. No biliary ductal dilatation. 3. Obscured pancreas. Abdomen/Pelvis CT 08/23/24 13:33 CT SCAN OF THE ABDOMEN AND PELVIS WITHOUT IV CONTRAST CLINICAL HISTORY: Epigastric abdominal pain. Constipation. COMPARISON STUDY: Abdominal CT dated 06/16/2021. TECHNIQUE: CT scan of the abdomen and pelvis is performed from the lung bases to the proximal femora. Images are reviewed in the axial, sagittal, and coronal planes. IV contrast was not administered for this examination. Note that the examination was performed in suboptimal fashion without oral and IV contrast. A dose lowering technique was utilized adhering to the principles of ALARA. CT DOSE: 1133.94 mGy.cm FINDINGS: Lung bases: The heart is normal in size and without pericardial effusion. The coronary arteries are densely calcified. There is trace right pleural effusion. Dependent scarring/atelectasis is noted at both lung bases. Postoperative changes seen at the right lung base. Liver: The unenhanced liver is normal in size, contour, and attenuation. There is no intrahepatic biliary ductal dilatation. Gallbladder: The gallbladder is markedly distended. The gallbladder wall is thickened and edematous, with surrounding inflammation and fluid. Findings are consistent with acute cholecystitis. Spleen: Normal in size and attenuation. Pancreas: The unenhanced pancreas is mildly atrophic and grossly unremarkable. Adrenal glands: An indeterminant 2.4 cm left adrenal nodule is similar to previous. The right adrenal gland is normal in appearance. Kidneys: The unenhanced kidneys are normal in size and without hydronephrosis. Excreted IV contrast is seen in the renal collecting systems and ureters. This degrades assessment for renal calculi. Bilateral renal cysts measure up to 6.6 cm. Abdominal vasculature: The abdominal aorta is normal in course and caliber. Bowel: There is moderate colonic fecal retention. No bowel obstruction is seen. There is mild colonic diverticulosis without CT evidence of acute diverticulitis. The appendix is well-visualized and normal. Peritoneum: There is no intraperitoneal free air or abdominal ascites. Lymphadenopathy: None. Pelvic viscera: The prostate gland is enlarged and heterogeneous. The bladder wall appears thickened/trabeculated indicating chronic outlet obstruction. The bladder is filled with excreted IV contrast. Skeletal structures: The skeletal structures are osteopenic. There is moderate to advanced lumbosacral spondylosis. No lytic or blastic lesions are seen. IMPRESSION: 1. Suboptimal examination without oral and IV contrast. 2. Severe acute cholecystitis. Surgical evaluation is advised. 3. Trace right pleural effusion. 4. Additional findings as above. Supervising Physician Co-Signing Physician Notes I personally saw and examined the patient. I independently reviewed the labs, EKG, imaging, problem list, medication list, past medical history and family history. I verified all sosa points and agree with Rachael Graham PA-C with the following exceptions and/or additions: 74 year old presents to the ER with right sided chest pain. While coming back from ultrasound he also started having a fever. O/E HS increased rate, regular rhythm, no murmurs, Chest CTAB, Abdo RUQ pain on palpation with guarding but no rebound tenderness A/P Acute cholecystitis / sepsis - IV ertapenem (penicillin allergy and better E. coli coverage than fluoroquinolones and this is severe illness with sepsis), lactate 1.0, Consult surgery, planning on taking to OR today. Medically optimized for surgery at this time. No CBD dilatation and LFTs normal therefore no need for ERCP/MRCP. Hypoxia - no etiology on CTA, suspect just due to sepsis and hypoventilation, Aim O2 sats > 90% PG Care Time/CCT Total # of Minutes Spent Total Time Spent with Patient: Total time spent is greater than 50% in coordination of care (as documented) at patient's floor/unit and/or counseling patient: Coding Level of Care Code 66926 INT INP/OBS CARE 375MIN Diagnoses Acute cholecystitis K81.0 Sepsis A41.9 Type 2 diabetes mellitus with obesity E11.69; E66.9 Hypoxia R09.02
--- NOTE | 2024-08-23 17:01 | Surgery Consultation ---
Date of Consultation August 23, 2024 Assessment & Plan (1) Acute cholecystitis: Present situation was discussed with the patient and his At the present time his last temperature was 39.4 heart rate 104 blood pressure 138/91 With exquisite tenderness and rebound and positive Joseph sign I recommended minna t we proceed with laparoscopic cholecystectomy possible open risk and complication were explained to the patient including bleeding infection converting to an open procedure and injury to other organs and they would like to proceed accordingly All questions answered Discussed the situation with the medical service and they have no objection to proceed with surgery Systemic antibiotics on board Surgery called the bookcase at approximately 430 Permit signed History of Present Illness Reason for Consultation: Acute cholecystitis History of Present Illness This 75-year-old gentleman who resides in [place] yesterday and been visiting his daughter Mukund developed epigastric pain was seen in the emergency room and cardiac source was ruled out no further workup was done according to the patient came back here in [place] where approximately 4:00's morning he had shaking chills diaphoretic came into the emergency room. At approximately 8:15 in the morning was worked up and found to have acute cholecystitis this was picked up on CT of the chest angiogram and abdominal CAT scan the abdominal CAT scan revealed severe inflammatory changes in the gallbladder no calculi noted We were asked to see him at approximately 4:00 this afternoon The patient's symptoms apparently started after he had a sudden in [place] he denies having had any similar symptoms in the past related to gallbladder This past surgeries including orthopedic issues He has a history of mild emphysema and acid reflux disease and type 2 diabetes Allergies Allergy/AdvReac Type Severity Reaction Status Date / Time Penicillins Allergy Severe throat Verified 08/23/24 11:35 swelling, hives fenofibrate Allergy Intermediate HIVES Verified 08/23/24 11:35 lisinopril AdvReac Mild cough Verified 08/23/24 11:35 Home Medications Medication Instructions Recorded Confirmed Type aspirin 81 mg tablet,delayed 81 mg PO HS 11/20/18 08/23/24 History release (Facundo Low Dose Aspirin) cholecalciferol (vitamin D3) 50 2,000 units PO QAM 11/20/18 08/23/24 History mcg (2,000 unit) tablet (Vitamin D3) omega-3 acid ethyl esters 1 gram 1 cap PO HS 05/04/19 08/23/24 History capsule (Lovaza) calcium carbonate (Calcium 600) 600 mg PO HS 01/21/20 08/23/24 History albuterol sulfate 90 mcg/actuation 2 puff inhalation Q6H PRN 09/15/21 08/23/24 Rx aerosol inhaler (Ventolin HFA) shortness of breath or wheezing #8.5 grams budesonide-formoterol HFA 80 2 puff inhalation BID PRN 04/29/23 08/23/24 History mcg-4.5 mcg/actuation aerosol Shortness Of Breath Or Wheezing inhaler (Symbicort) atorvastatin 20 mg tablet 20 mg PO HS #90 tabs 06/26/23 08/23/24 Rx gabapentin 300 mg capsule See Rx Instructions .Route 06/26/23 08/23/24 Rx .COMPLEX #360 caps losartan 25 mg tablet (Cozaar) 25 mg PO QAM #90 tabs 06/26/23 08/23/24 Rx omeprazole 40 mg capsule,delayed 40 mg PO BID #180 caps 06/26/23 08/23/24 Rx release metformin 500 mg tablet 1,000 mg (2 x 500 mg) PO BID #360 12/04/23 08/23/24 Rx tabs Auto Titrating CPAP #1 ea 03/13/24 07/29/24 Rx CPAP Supplies #1 ea 03/13/24 07/29/24 Rx cyanocobalamin (vitamin B-12) 1,000 mcg IM MONTHLY #1 ea 03/27/24 08/23/24 Rx 1,000 mcg/mL injection kit sitagliptin phosphate 100 mg 100 mg PO QAM #90 tabs 07/03/24 08/23/24 Rx tablet (Januvia) bupropion HCl 300 mg 24 hr tablet, 300 mg PO QAM #90 tabs 07/16/24 08/23/24 Rx extended release syringe with needle, safety 3 mL #5 ea 08/13/24 Rx 25 gauge x 5/8" (BD Integra Syringe) chlorthalidone 25 mg tablet 12.5 mg PO HS 08/23/24 08/23/24 History mirtazapine 7.5 mg tablet 7.5 mg PO HS 08/23/24 08/23/24 History trazodone 50 mg tablet 50 mg PO HS 08/23/24 08/23/24 History Patient History Medical History Obesity (BMI 30-39.9) Rib fracture subacute right anterior rib fractures on 12/[address], pt states has tenderness when chiropractor presses that area History of COVID-19 03/2022-denies hospitalization-symptoms resolved History of colon polyps Lung nodule reason for wedge resection - pt states it was benign B12 deficiency Nephrolithiasis Adrenal nodule Benign apearance on CT scan 2017 Surgical History History of surgery on left wrist (~04/2021) repair of tendon and removal of hardware History of bronchoscopy Dr. Rich History of esophagogastroduodenoscopy (EGD) History of open reduction and internal fixation (ORIF) procedure left wrist--hardware in place History of total left knee replacement (TKR) History of total right knee replacement (TKR) History of lithotripsy History of colonoscopy 04/2022 Repeat 5 yrs History of tooth extraction partial upper Status post biopsy of thyroid gland benign nodule History of lung surgery 2015 right lung--lower lobe wedge resection Family History Mother Cardiac disorder Diabetes Myocardial infarction Father Diabetes Myocardial infarction Brother Stroke Aunt Breast cancer Other No family history of adverse response to anesthesia Denies family history of Ovarian cancer Prostate cancer Lung cancer Colorectal cancer Social History Smoking Status: Former smoker Tobacco Type: Cigarettes Age Started Using Tobacco: 18; Age Quit Using Tobacco: 29; packs per day: 0.5; Second Hand Exposure: No; Do You Dip or Chew Tobacco: No; Hx Alcohol Use: No Hx Substance Use: No Preferred Language: Lithuanian Communication Ability: Effective Visual Impairment: Limited Hearing Ability: Use of Hearing Aid Liquid Fertilizer Servicer Required: No Beliefs That Will Affect Care: None marital status: Current Living Situation: Spouse and Family Current Living Situation Comment: Lives with and granddaughter and great grandson current occupational status: retired How many Children do You have: 2 Feels Safe at Home: Yes Childhood Exposure to Second-Hand Smoke: Yes Diet: regular caffeine: Yes (3 cups of coffee daily ) during the past year weight has: increased > 10 lbs Dental Care, Regularly: Yes Physical Activity Frequency: Daily Seatbelt Use: always Sunscreen Use: Yes Assistive Devices: Glasses and Hearing Aid - Bilateral Physical Exam Physical Exam: Is alert coherent just came back from the restroom on oxygen significant other at the bedside The skin moist warm flushed Sclera nonicteric No cervical lymphadenopathy Lungs clear bilaterally no no wheezing or rhonchi Heart regular rate no murmurs or gallop Abdomen is slightly tender and rebound positive Joseph sign right upper quadrant rest of the abdomen negative Extremities grossly normal no pedal edema Results & Data Vital Signs (Past 12 Hours) Vital Signs Temp Pulse Pulse Resp BP BP Pulse Ox 08/23/24 15:44 104 H 18 138/91 97 08/23/24 14:10 115/77 08/23/24 14:00 109/72 08/23/24 13:57 39.4 C H 08/23/24 13:53 132 H 24 132/77 93 08/23/24 13:47 140 H 24 93 08/23/24 13:41 143 H 21 92 08/23/24 13:17 87 L 08/23/24 13:14 133 H 34 H 87 L 08/23/24 13:13 138/94 08/23/24 12:32 106 H 26 H 93 08/23/24 12:30 146/92 H 08/23/24 12:29 103 H 25 H 92 08/23/24 12:17 104 H 22 95 08/23/24 11:50 87 17 95 08/23/24 11:42 154/109 H 08/23/24 11:12 88 25 H 08/23/24 10:09 89 24 95 08/23/24 10:00 144/83 H 08/23/24 09:31 88 21 94 08/23/24 09:30 84 23 139/83 94 08/23/24 08:31 08/23/24 08:31 08/23/24 08:15 36.9 C 86 20 189/83 H 94 O2 Del Method O2 Flow Rate 08/23/24 15:44 08/23/24 14:10 08/23/24 14:00 08/23/24 13:57 08/23/24 13:53 Nasal Cannula 4 08/23/24 13:47 08/23/24 13:41 08/23/24 13:17 Room Air 08/23/24 13:14 Room Air 08/23/24 13:13 08/23/24 12:32 08/23/24 12:30 08/23/24 12:29 08/23/24 12:17 08/23/24 11:50 08/23/24 11:42 08/23/24 11:12 08/23/24 10:09 Room Air 08/23/24 10:00 08/23/24 09:31 Room Air 08/23/24 09:30 Room Air 08/23/24 08:31 Room Air 08/23/24 08:31 Room Air 08/23/24 08:15 Room Air Laboratory Results Noted normal liver enzymes white count 11.53 with left shift Diagnostic Findings CT scans of the chest and abdomen noted acute cholecystitis without obvious cholelithiasis PG Care Time/CCT Total # of Minutes Spent Total Time Spent with Patient: Total time spent is greater than 50% in coordination of care (as documented) at patient's floor/unit and/or counseling patient: Coding Level of Care Code 20833 INT INP/OBS CARE 255MIN Diagnoses Acute cholecystitis K81.0
--- NOTE | 2024-08-23 17:12 | Anesthesiology Consultation ---
Date of Service August 23, 2024 Assessment & Plan Chart Review Chart Review: Acceptable Risk for Surgery and Patient NOT seen in Pre Admission Testing Consults Requested none ASA [id number] Proposed Anesthesia Anesthesia Type: General History Height/Weight Height: 5 ft 9 in Weight: 80 kg Allergies Allergy/AdvReac Type Severity Reaction Status Date / Time Penicillins Allergy Severe throat Verified 08/23/24 11:35 swelling, hives fenofibrate Allergy Intermediate HIVES Verified 08/23/24 11:35 lisinopril AdvReac Mild cough Verified 08/23/24 11:35 Medications Home Medications Medication Instructions Recorded Confirmed Last Taken aspirin 81 mg tablet,delayed 81 mg PO HS 11/20/18 08/23/24 08/22/24 release (Facundo Low Dose Aspirin) cholecalciferol (vitamin D3) 50 2,000 units PO QAM 11/20/18 08/23/24 08/22/24 mcg (2,000 unit) tablet (Vitamin D3) omega-3 acid ethyl esters 1 gram 1 cap PO HS 05/04/19 08/23/24 08/22/24 capsule (Lovaza) calcium carbonate (Calcium 600) 600 mg PO HS 01/21/20 08/23/24 08/22/24 albuterol sulfate 90 mcg/actuation 2 puff inhalation Q6H PRN 09/15/21 08/23/24 04/29/23 05:30 aerosol inhaler (Ventolin HFA) shortness of breath or wheezing #8.5 grams budesonide-formoterol HFA 80 2 puff inhalation BID PRN 04/29/23 08/23/24 1 Week Ago mcg-4.5 mcg/actuation aerosol Shortness Of Breath Or Wheezing ~04/22/23 inhaler (Symbicort) atorvastatin 20 mg tablet 20 mg PO HS #90 tabs 06/26/23 08/23/24 08/22/24 gabapentin 300 mg capsule See Rx Instructions .Route 06/26/23 08/23/24 08/22/24 .COMPLEX #360 caps losartan 25 mg tablet (Cozaar) 25 mg PO QAM #90 tabs 06/26/23 08/23/24 08/22/24 omeprazole 40 mg capsule,delayed 40 mg PO BID #180 caps 06/26/23 08/23/24 08/22/24 release metformin 500 mg tablet 1,000 mg (2 x 500 mg) PO BID #360 12/04/23 08/23/24 08/22/24 tabs Auto Titrating CPAP #1 ea 03/13/24 07/29/24 Unknown CPAP Supplies #1 ea 03/13/24 07/29/24 Unknown cyanocobalamin (vitamin B-12) 1,000 mcg IM MONTHLY #1 ea 03/27/24 08/23/24 07/30/24 1,000 mcg/mL injection kit sitagliptin phosphate 100 mg 100 mg PO QAM #90 tabs 07/03/24 08/23/24 08/22/24 tablet (Januvia) bupropion HCl 300 mg 24 hr tablet, 300 mg PO QAM #90 tabs 07/16/24 08/23/24 08/22/24 extended release syringe with needle, safety 3 mL #5 ea 08/13/24 Unknown 25 gauge x 5/8" (BD Integra Syringe) chlorthalidone 25 mg tablet 12.5 mg PO HS 08/23/24 08/23/24 08/22/24 mirtazapine 7.5 mg tablet 7.5 mg PO HS 08/23/24 08/23/24 08/22/24 trazodone 50 mg tablet 50 mg PO HS 08/23/24 08/23/24 08/22/24 Past Medical History Medical History Obesity (BMI 30-39.9) Rib fracture subacute right anterior rib fractures on 12/[address], pt states has tenderness when chiropractor presses that area History of COVID-19 03/2022-denies hospitalization-symptoms resolved History of colon polyps Lung nodule reason for wedge resection - pt states it was benign B12 deficiency Nephrolithiasis Adrenal nodule Benign apearance on CT scan 2018 HTN HLD COPD/Emphysema CYNTHIA GERD/Gagnon's esoph. NIDDM Diabetic PN Hx/o malignant neuroendocrine tumor Exercise / Class Metabolic Activity III < 4 Walking/Shop/Light housework Past Family History Family History Mother Cardiac disorder Diabetes Myocardial infarction Father Diabetes Myocardial infarction Brother Stroke Aunt Breast cancer Other No family history of adverse response to anesthesia Denies family history of Ovarian cancer Prostate cancer Lung cancer Colorectal cancer Past Surgical History Surgical History History of surgery on left wrist (~04/2021) repair of tendon and removal of hardware History of bronchoscopy Dr. Rich History of esophagogastroduodenoscopy (EGD) History of open reduction and internal fixation (ORIF) procedure left wrist--hardware in place History of total left knee replacement (TKR) History of total right knee replacement (TKR) History of lithotripsy History of colonoscopy 04/2022 Repeat 5 yrs History of tooth extraction partial upper Status post biopsy of thyroid gland benign nodule History of lung surgery 2015 right lung--lower lobe wedge resection Past Anesthesia History No Hx of Anesthesia Complications and No Family Hx of Anesthesia Complications History of PONV No Hx of PONV and No Hx of Motion Sickness Social History Smoking Status: Former smoker tobacco type: cigarettes Do You Dip or Chew Tobacco: No Hx Alcohol Use: No Alcohol type: beer alcohol intake frequency: other Hx Substance Use: No substance use type: does not use Physical Exam Vital Signs Last Vital Signs Temp 39.4 C H 08/23/24 13:57 Pulse 103 H 08/23/24 17:02 Resp 18 08/23/24 17:02 BP 142/88 H 08/23/24 17:02 Pulse Ox 98 08/23/24 17:02 O2 Del Method Nasal Cannula 08/23/24 13:53 O2 Flow Rate 4 08/23/24 13:53 Testing Laboratory Results 08/23/24 08:23 08/23/24 08:23 PT 11.0 Seconds (9.0-12.0) 08/23/24 08:23 INR 1.0 (0.9-1.1) 08/23/24 08:23 Urine Color Yellow 08/23/24 08:27 Urine Appearance Clear (Clear) 08/23/24 08:27 Urine pH 7.0 (4.5-7.5) 08/23/24 08:27 Ur Specific [place] 1.018 (1.000-1.030) 08/23/24 08:27 Urine Protein 1+ (Negative) H 08/23/24 08:27 Urine Glucose (UA) Negative (Negative) 08/23/24 08:27 Urine Ketones 1+ (Negative) H 08/23/24 08:27 Urine Nitrite Negative (Negative) 08/23/24 08:27 Ur Leukocyte Esterase Negative (Negative) 08/23/24 08:27 Urine WBC (Auto) 0-5 /hpf (0-5) 08/23/24 08:27 Urine RBC (Auto) 0-2 /hpf (0-2) 08/23/24 08:27 U Hyaline Cast (Auto) 0-2 /lpf (0-2) 08/23/24 08:27 U Epithel Cells (Auto) 0-2 /hpf (0-2) 08/23/24 08:27 Urine Bacteria (Auto) None Seen (None Seen) 08/23/24 08:27 Electrocardiogram Date: 08/23/24 Findings: + NSR @ (@ 89 w/ PAC's;? infer. infarct,age ?) Chest X-Ray Date: 08/23/24 Findings: + NAD and + cardiomegaly Echocardiogram Date: 01/30/24 EF: 55% LV Function: normal RWMA: + none Other Findings: + LVH and + diastolic dysfunction (Grade 1) Valvular Disease: + no significant valvular disease
[2024-08-23] MEDS ORDERED: HYDROmorphone INJ 1 MG/ML SYRINGE IV PRN (17:19)
[2024-08-23] MEDS ORDERED: NALOXONE HCL 0.4 MG/1 ML VIAL/CARP IV PRN (17:19)
[2024-08-23] MEDS ORDERED: ATROPINE SULFATE 0.1 MG/ML 10ML SYR IV PRN (17:19)
[2024-08-23] MEDS ORDERED: ONDANSETRON INJ 2 MG/ML 2 ML VIAL IV PRN ×2 (17:19→21:15)
[2024-08-23] MEDS ORDERED: PROMETHAZINE HCL 6.25 MG in SODIUM CHLORIDE 0.9% 50 ML IV PRN (17:19)
[2024-08-23] MEDS ORDERED: ePHEDrine sulfate 50 MG/ML AMP IV PRN (17:19)
[2024-08-23] MEDS ORDERED: LABETALOL HCL IV 5 MG/ML 20ML IV PRN (17:19)
[2024-08-23] MEDS ORDERED: FLUMAZENIL 0.1 MG/1 ML 10 ML VIAL IV PRN (17:19)
[2024-08-23] MEDS ORDERED: fentaNYL citrate PF 100 MCG/2 ML VIAL IV PRN (17:19)
[2024-08-23] MEDS ORDERED: PROPOFOL IV EMULSION 10 MG/ML 20 ML VIAL IV ONE ×2 (17:28→17:31)
[2024-08-23] MEDS ORDERED: MIDAZOLAM HCL 1 MG/ML 2ML VIAL ONE (17:29)
[2024-08-23] MEDS ORDERED: fentaNYL citrate PF 100 MCG/2 ML VIAL ONE ×2 (17:29)
[2024-08-23] MEDS ORDERED: SUCCINYLCHOLINE CHLORIDE 20 MG/ML 10 ML VIAL IV ONE (17:34)
[2024-08-23] MEDS ORDERED: NEOSTIGMINE METHYLSULFATE 1 MG/ML 10ML VIAL ONE (18:28)
[2024-08-23] MEDS ORDERED: CISATRACURIUM BESYLATE IV SOLN 2 MG/ML 10 ML VIAL IV ONE (18:28)
[2024-08-23] MEDS ORDERED: GLYCOPYRROLATE 0.2 MG/ML VIAL ONE (18:29)
[2024-08-23] MEDS ORDERED: ONDANSETRON INJ 2 MG/ML 2 ML VIAL ONE (18:30)
--- NOTE | 2024-08-23 19:20 | Post Operative Brief Note ---
Immediate Post Op Note Date of Surgery August 23, 2024 Pre & Post Diagnosis Operation Date: 08/23/24 18:00 Pre-Op Diagnosis: acute cholecystitis Post-Op Diagnosis: acute cholecystitis I identified the patient and participated in the time-out.: Yes Procedure Operation Date: 08/23/24 18:00 Actual Procedures p Laparoscopic Cholecystectomy(Not Applicable) - Carlitos Macias MD, FACS Surgeon Carlitos Macias MD, FACS Alcohol Rubber 0 Estimated Blood Loss 30 Findings Consistent with Post-Op Diagnosis Drains Neel Drain
[2024-08-23] MEDS: LIDOCAINE 1% LOCAL 20 ML VIAL ONE (19:35)
[2024-08-23] MEDS: EPINEPHrine INJ 1 MG/ML AMP ONE (19:35)
[2024-08-23] MEDS: LIDOCAINE 1%/EPINEPHRINE 1:100,000 50 ML VIAL ONE (19:36)
--- NOTE | 2024-08-23 19:48 | Operative Report ---
PG Post Operative Report Pre & Post Diagnosis Operation Date: 08/23/24 18:00 Pre-Op Diagnosis: acute cholecystitis Post-Op Diagnosis: acute cholecystitis gangrenous I identified the patient and participated in the time-out.: Yes Procedure Operation Date: 08/23/24 18:00 Actual Procedures p Laparoscopic Cholecystectomy(Not Applicable) - Carlitos Macias MD, FACS The patient was brought into the operating theater supine position general trach anesthesia systemic biotics on board the abdomen was prepped byline solution properly draped timeout was had patient identified a small incision supraumbilically sufficient to accommodate a Veress needle followed by 5 mm trocar point of entry point identified easily appreciated distended thickened g allbladder with omentum encasing it 5 mm epigastric and two 5 mm subcostal ports were placed with preemptive local analgesic patient was turned on reverse Trendelenburg rotated to the left we dissected out the omentum the graft stayed thickened wall we were able then to aspirate and decompress the gallbladder so we could better be able to progress the thick walled once this had been performed is mostly blunt dissection with the edema taken of the midportion of gallbladder dissected all the way down to the floor we able to identify the cystic duct at its takeoff from the gallbladder identified the cystic artery and a window was created around the cystic duct which was thickened the artery was doubly clipped proximal once distally and divided a clip was placed proximally and the takeoff of the cystic duct into distally well away from the common bile duct to secure the clips in place cystic duct was then divided a small opening the gallbladder was made as we were lifting it out from the dissection and we could see some thickened whitish drainage easily appreciated to loose mostly blunt dissection to free the gallbladder from the fossa due to the edema made the dissection fairly easy although few areas we had some bleeders that we were controlled with electrocautery the gallbladder was freed from the liver was placed in an Endopouch and we will take it out through the epigastric trocar site but due to a thick espinoza and thickened gallbladder we enlarged the incision sufficiently enough so we were able to dilate without bring out the gallbladder and contents without any spillage cultures of the gallbladder were taken subhepatic suprahepatic area was suctioned out moderate amount of oozing was appreciated from the gallbladder fossa at this point we converted to sections of the larger side. Since the initial 1 was inadequate for dissection and suction and once we have freed up sufficiently the area we do suction down towards the pelvis I elected to place some Surgicel in the gallbladder fossa that we brought in a Neel drain 19 round prior to placement in the abdomen initial entry in the periumbilical area by placing the camera right upper quadrant trocar site there were no adhesions around the umbilical area the drain was brought placed subhepatic reattaching the skin edge with 2-0 silk suture individual trocars were then removed the last umbilical trocar the epigastric wound was closed with interrupted 2-0 Vicryl sutures times three 4-0 Monocryl subcuticularly Steri- Strips applied procedure was tolerated well by the patient estimated blood loss 30 cc After surgery I spoke with his and granddaughter in the waiting Surgeon Carlitos Macias MD, FACS Police Investigator 0 Estimated Blood Loss 30 Findings Consistent with Post-Op Diagnosis Acute gangrenous cholecystitis Specimens Gallbladder and contents Drains 19 round Neel drain subhepatic leak Complications Poor suction device Indications Sepsis significant right upper quadrant pain consistent with acute cholecystitis Description of Procedure merda I attest to the content of the Intraoperative Record and any orders documented therein. Any exceptions are noted below.
--- NOTE | 2024-08-23 20:11 | Anesthesiology Progress Note ---
Date of Service August 23, 2024 Anesthesia Post Procedure Vital Signs Vital Signs: Temp Pulse Pulse Resp BP BP BP 08/23/24 20:00 37.1 C 93 H 19 145/74 H 08/23/24 19:50 81 20 141/75 H 08/23/24 19:40 74 19 131/73 08/23/24 19:30 36.3 C L 85 21 125/78 08/23/24 17:02 103 H 18 142/88 H 08/23/24 15:44 104 H 18 138/91 08/23/24 14:10 115/77 08/23/24 14:00 109/72 08/23/24 13:57 39.4 C H 08/23/24 13:53 132 H 24 132/77 08/23/24 13:47 140 H 24 08/23/24 13:41 143 H 21 08/23/24 13:17 08/23/24 13:14 133 H 34 H 08/23/24 13:13 138/94 08/23/24 12:32 106 H 26 H 08/23/24 12:30 146/92 H 08/23/24 12:29 103 H 25 H 08/23/24 12:17 104 H 22 08/23/24 11:50 87 17 08/23/24 11:42 154/109 H 08/23/24 11:12 88 25 H 08/23/24 10:09 89 24 08/23/24 10:00 144/83 H 08/23/24 09:31 88 21 08/23/24 09:30 84 23 139/83 08/23/24 08:31 08/23/24 08:31 08/23/24 08:15 36.9 C 86 20 189/83 H Pulse Ox O2 Del Method O2 Flow Rate 08/23/24 20:00 95 Oxymask 3 08/23/24 19:50 98 Oxymask 6 08/23/24 19:40 99 Oxymask 10 08/23/24 19:30 94 Oxymask 10 08/23/24 17:02 98 08/23/24 15:44 97 08/23/24 14:10 08/23/24 14:00 08/23/24 13:57 08/23/24 13:53 93 Nasal Cannula 4 08/23/24 13:47 93 08/23/24 13:41 92 08/23/24 13:17 87 L Room Air 08/23/24 13:14 87 L Room Air 08/23/24 13:13 08/23/24 12:32 93 08/23/24 12:30 08/23/24 12:29 92 08/23/24 12:17 95 08/23/24 11:50 95 08/23/24 11:42 08/23/24 11:12 08/23/24 10:09 95 Room Air 08/23/24 10:00 08/23/24 09:31 94 Room Air 08/23/24 09:30 94 Room Air 08/23/24 08:31 Room Air 08/23/24 08:31 Room Air 08/23/24 08:15 94 Room Air Pain Intensity Right Chest: Pain Intensity: 5 Transfer of Care Handoff Completed per policy Notes Mental Status: alert / awake / arousable Patient Amnestic to Procedure: Yes Nausea / Vomiting: adequately controlled Pain: adequately controlled Airway Patency, RR, SpO2: stable & adequate BP & HR: stable & adequate Hydration State: stable & adequate Anesthetic Complications: no major complications apparent
[2024-08-23] MEDS ORDERED: MoRPHine SULFATE 4 MG/ML 1 ML CARP\\VIAL IV PRN (21:15)
[2024-08-23] MEDS ORDERED: ALBUTEROL HFA 8 GM INHALER INH PRN (21:15)
[2024-08-23] MEDS ORDERED: MoRPHine SULFATE 2 MG/ML CARP IV PRN (21:15)
[2024-08-23] MEDS: LACTATED RINGER'S 1,000 ML IV SCH (21:36)
[2024-08-23] MEDS: MIRTAZAPINE TAB 15 MG TAB PO SCH (22:04)
[2024-08-23] MEDS: traZODone HCL 50 MG TAB PO SCH (22:05)
[2024-08-23] MEDS: PANTOprazole 40 MG TAB PO SCH (22:05)
[2024-08-23] MEDS: GABAPENTIN 300 MG CAP PO SCH (22:05)
[2024-08-23] MEDS: SURGICEL ABSORB HEMOSTAT 2IN X 14IN TOP ONE (22:24)
[2024-08-23] MEDS: INSULIN ASPART PER UNIT CHARGE SC SCH (23:43)
[2024-08-24 07:00] LABS: Hematocrit (blood only) 30.5 % (42.0-52.0); Hemoglobin 10.2 g/dl (14.0-18.0); Mean Corpuscular Hemoglobin 29.2 pg (25.0-34.0); Mean Corpuscular Hgb Conc 33.4 g/dL (32.0-36.0); Mean Corpuscular Volume 87.4 fL (80.0-100.0); Mean Platelet Volume 9.3 fL (9.4-12.4); Platelet Count 147 K/uL (130-400); RDW Coefficient of Variation 13.3 % (11.5-14.5); RDW Standard Deviation 42.8 fL (36.4-46.3); Red Blood Count 3.49 M/uL (4.70-6.10); White Blood Count 8.26 K/ul (4.8-10.8)
--- NOTE | 2024-08-24 07:22 | Surgery Progress Note ---
Date of Service August 24, 2024 Assessment & Plan (1) Acute cholecystitis: Plan: #1POD status post laparoscopic cholecystectomy for gangrenous cholecystitis Operative findings discussed with the patient Will increase activity and diet likely be in the hospital another 48 hours and sent home on p.o. antibiotics for 5-day with Admission and Anticipated Discharge Date Admission Date: August 23, 2024 Subjective Feels better than yesterday Minimal discomfort Physical Exam Physical Exam: Alert coherent in no distress Oropharyngeal moist Sclera nonicteric Abdomen completely benign Neel drainage serous slightly sanguinous Results & Data Vital Signs (Past 12 Hours) Vital Signs Temp Pulse Pulse Pulse Resp BP Pulse Ox 08/24/24 07:10 96 H 08/24/24 04:13 37.0 C 86 20 100/64 95 08/24/24 01:35 36.9 C 110 H 20 115/73 97 08/23/24 23:22 107 H 08/23/24 23:15 37.4 C 109 H 18 123/70 97 08/23/24 22:23 37.3 C 111 H 18 115/73 97 08/23/24 22:07 103 H 08/23/24 21:39 36.7 C 98 H 16 126/77 98 08/23/24 21:15 36.4 C L 99 H 16 138/88 98 08/23/24 20:55 92 H 21 134/74 98 08/23/24 20:40 91 H 23 129/75 95 08/23/24 20:25 98 H 14 130/77 96 08/23/24 20:10 96 H 22 129/73 96 08/23/24 20:00 37.1 C 93 H 19 145/74 H 95 08/23/24 19:50 81 20 141/75 H 98 08/23/24 19:40 74 19 131/73 99 08/23/24 19:30 36.3 C L 85 21 125/78 94 O2 Del Method O2 Flow Rate 08/24/24 07:10 08/24/24 04:13 Nasal Cannula 2 08/24/24 01:35 Room Air 08/23/24 23:22 08/23/24 23:15 Room Air 08/23/24 22:23 Nasal Cannula 2 08/23/24 22:07 08/23/24 21:39 Nasal Cannula 2 08/23/24 21:15 Nasal Cannula 2 08/23/24 20:55 Nasal Cannula 2 08/23/24 20:40 Nasal Cannula 3 08/23/24 20:25 Nasal Cannula 3 08/23/24 20:10 Oxymask 3 08/23/24 20:00 Oxymask 3 08/23/24 19:50 Oxymask 6 08/23/24 19:40 Oxymask 10 08/23/24 19:30 Oxymask 10 Laboratory Results Noted
[2024-08-24 07:28] LABS: Albumin Globulin Ratio 1.3 (0.9-2); Albumin Level 3.1 gm/dl (3.4-5.0); BUN Creatinine Ratio 14.3 (10-20); Bilirubin,Total 0.7 mg/dl (0.2-1.0); Calcium 8.7 mg/dl (8.6-10.3); Creatinine Clr Calc Pharmacy 73.8 ml/min; Globulin 2.3 gm/dl (2.5-4.0); Potassium 3.8 mmol/L (3.5-5.1); Total Protein 5.4 gm/dl (6.0-8.3)
[2024-08-24] MEDS: FLUTICASONE/VILANTEROL 100/25MCG 14 PUFFS/INHALER INH SCH (08:32)
[2024-08-24] MEDS: buPROPion XL 300 MG TABCR PO SCH (08:32)
[2024-08-24] MEDS: GABAPENTIN 300 MG CAP PO SCH (08:32)
[2024-08-24] MEDS: LACTATED RINGER'S 1,000 ML IV SCH (09:30)
--- NOTE | 2024-08-24 10:15 | Hospitalist Progress Note ---
Date of Service August 24, 2024 Assessment & Plan (1) Acute cholecystitis: Plan: This is a 74-year-old gentleman with past medical history of hyperlipidemia, type 2 diabetes, diabetic neuropathy, obesity who presented to the ER on 08/23/2024 with a chief complaint of chest pain, fevers/chills x 2 days. Patient meets sepsis criteria with source being gallbladder. Troponin negative x 2. Urinalysis negative. Respiratory biofire negative CXR negative Chest CTA findings concerning for acute cholecystitis but negative for PE or pneumonia Gallbladder US: gallbladder distention w/ mild gallbladder wall thickening. CTAP did reveal severe acute cholecystitis Blood cultures pending Gallbladder fluid culture: pending General surgery consulted, appreciate recommendations. S/p cholecystectomy 08/[address] Macias - gangrenous gallbladder on Op report - continue IV abx --> Ertapenem - advance diet as tolerated Encourage OOB PT/OT ordered AM CBC, BMP (2) Sepsis: Plan: see plan above (3) Type 2 diabetes mellitus with obesity: Plan: hold outpatient diabetic medication - metformin and Januvia Sliding scale while inpatient Range of 110-180mg/dl Correction factor of 25 Last A1c 06/2024: 6.2% (4) Hypoxia: Plan: Baseline - room air Likely secondary to atelectasis weaned down to 2L during my encounter continue IS Plan Chronic conditions: HTN: losartan and cholrathalidone held Mental health: Bupropion, Mirtazapine HLD: statin Insomnia: Trazodone GERD: PPI Neuropathy: gabapentin DVT prophylaxis: heparin SQ Disposition: continued inpatient stay updated at bedside 08/24 Admission and Anticipated Discharge Date Admission Date: August 23, 2024 Supervising Physician Co-Signing Physician Notes PA Supervision Note: I did not personally see or examine the patient today, but I verified all sosa points of KENN Brizuela's assessment and plan with the following exceptions/additions: None Subjective Pablo seen resting in bed, present at bedside. Has not been out of bed since surgery. no BM. reports that his pain is 10/10 currently. tolerated clear liquid breakfast without problems baseline is room air and no assisitve devices for ambulation has not been using IS telemetrysinus rhythm with PVCs, PACs in the 90s Review of Systems Review of Systems: All systems reviewed & are unremarkable except as noted in Subjective Physical Exam Physical Exam: General: NAD, VS as above, flat affect Resp: normal respiratory effort, lungs clear to auscultation. weaned down to 2L NC CV: RRR, no murmur, Abd: normal bowel sounds, soft and reports generalized tender, dressing c/d/i, Extremities: Moves all extremities, no edema Neuro: A&O x3, Skin: intact, no lesions noted Results & Data Results & Data Vital Signs (Past 12 Hours) Vital Signs Temp Pulse Pulse Pulse Resp BP Pulse Ox 08/24/24 07:27 99.7 F H 91 H 18 108/68 92 08/24/24 07:10 96 H 08/24/24 04:13 98.6 F 86 20 100/64 95 08/24/24 01:35 98.4 F 110 H 20 115/73 97 08/23/24 23:22 107 H 08/23/24 23:15 99.3 F 109 H 18 123/70 97 08/23/24 22:23 99.1 F 111 H 18 115/73 97 O2 Del Method O2 Flow Rate 08/24/24 07:27 Nasal Cannula 3 08/24/24 07:10 08/24/24 04:13 Nasal Cannula 2 08/24/24 01:35 Room Air 08/23/24 23:22 08/23/24 23:15 Room Air 08/23/24 22:23 Nasal Cannula 2 Laboratory Results CBC and chemistry reviewed PG Care Time/CCT Total # of Minutes Spent Total Time Spent with Patient: Total time spent is greater than 50% in coordination of care (as documented) at patient's floor/unit and/or counseling patient: Coding Level of Care Code 71330 SUB INP/OBS CARE 3/50MIN Diagnoses Acute cholecystitis K81.0 Sepsis A41.9 Type 2 diabetes mellitus with obesity E11.69; E66.9 Hypoxia R09.02
[2024-08-24] MEDS: oxyCODONE HCL IR 5 MG TAB (IMMEDIATE RELEASE) PO PRN (10:17)
[2024-08-24] MEDS: POLYETHYLENE (MIRALAX) 17 GM PACK PO SCH (11:55)
[2024-08-24] MEDS: ERTAPENEM 1000MG 1,000 MG/10 ML SYR IV SCH (13:39)
[2024-08-24] MEDS: HEPARIN SOD 5,000 UNIT/0.5 ML VIAL SQ SCH (13:39)
--- NOTE | 2024-08-24 14:24 | Electrocardiogram Report ---
Test Reason : Blood Pressure : */* mmHG Vent. Rate : 135 BPM Atrial Rate : 135 BPM P-R Int : 158 ms QRS Dur : 110 ms QT Int : 296 ms P-R-T Axes : 45 -32 64 degrees QTcB Int : 444 ms Sinus tachycardia Left axis deviation Inferior infarct (cited on or before 14-Feb-2024) Abnormal ECG When compared with ECG of 23-Aug-2024 08:25, Premature atrial complexes are no longer Present QRS axis Shifted left Nonspecific T wave abnormality no longer evident in Inferior leads Nonspecific T wave abnormality now evident in Lateral leads Confirmed by Maurizio Cosme ([id number]) on 08/24/2024 2:23:47 PM Referred By: REFERRED SELF Confirmed By: Maurizio Cosme
[2024-08-24] MEDS: ATORVASTATIN 20 MG TAB PO SCH (20:51)
[2024-08-24] MEDS: GABAPENTIN 600 MG TAB PO SCH (20:52)
[2024-08-24] MEDS: ASPIRIN 81 MG ECTAB PO SCH (20:53)
[2024-08-24] MEDS: INSULIN ASPART PER UNIT CHARGE SC SCH (21:12)
[2024-08-25 06:24] LABS: Basophils # (auto) 0.02 K/uL (0.00-0.20); Basophils % (auto) 0.3 %; Eosinophils # (auto) 0.09 K/uL (0.00-0.50); Eosinophils % (auto) 1.2 %; Hematocrit (blood only) 30.4 % (42.0-52.0); Hemoglobin 10.2 g/dl (14.0-18.0); Immature Granulocytes # (auto) 0.04 K/uL (0.01-0.20); Immature Granulocytes % (auto) 0.5 %; Lymphocytes # (auto) 1.03 K/uL (1.20-3.40); Lymphocytes % (auto) 13.8 %; Mean Corpuscular Hemoglobin 29.5 pg (25.0-34.0); Mean Corpuscular Hgb Conc 33.6 g/dL (32.0-36.0); Mean Corpuscular Volume 87.9 fL (80.0-100.0); Mean Platelet Volume 9.1 fL (9.4-12.4); Monocytes # (auto) 1.14 K/uL (0.11-0.59); Monocytes % (auto) 15.2 %; Neutrophils # (auto) 5.16 K/uL (1.40-6.50); Platelet Count 148 K/uL (130-400); RDW Coefficient of Variation 13.7 % (11.5-14.5); Red Blood Count 3.46 M/uL (4.70-6.10); White Blood Count 7.48 K/ul (4.8-10.8)
--- NOTE | 2024-08-25 06:24 | Surgery Progress Note ---
Date of Service August 25, 2024 Assessment & Plan (1) Acute cholecystitis: Plan: 08/25/2024 #2 postoperative day status post laparoscopic cholecystectomy Patient is progressing well pathology is pending intraoperative cultures pending lab from this morning pending Plan Continue with antibiotic increase activity suspect will be in the hospital noted 2 to 3 days to be discharged once his respiratory status is improved we will remove the Neel drain prior to discharge Admission and Anticipated Discharge Date Admission Date: August 23, 2024 Subjective No major complaints still some abdominal pain tolerating diet yesterday Physical Exam Physical Exam: Alert coherent resting comfortably on oxygen nasal cannula 2 L/min Sclera nonicteric Abdomen soft localized tenderness Neel drainage 40 cc last 24 hours serosanguineous nonbilious Results & Data Vital Signs (Past 12 Hours) Vital Signs Temp Pulse Pulse Resp BP Pulse Ox O2 Del Method 08/25/24 04:00 36.8 C 92 H 18 110/66 94 Nasal Cannula 08/25/24 00:00 36.8 C 84 18 120/73 94 Nasal Cannula 08/24/24 23:27 96 H 08/24/24 21:38 Nasal Cannula 08/24/24 19:00 37.0 C 101 H 18 121/79 93 Nasal Cannula O2 Flow Rate 08/25/24 04:00 2 08/25/24 00:00 2 08/24/24 23:27 08/24/24 21:38 2 08/24/24 19:00 2 Laboratory Results Results from today are pending
[2024-08-25 06:41] LABS: BUN Creatinine Ratio 15.2 (10-20); Calcium 8.7 mg/dl (8.6-10.3); Creatinine Clr Calc Pharmacy 64.5 ml/min; Potassium 3.4 mmol/L (3.5-5.1)
[2024-08-25] MEDS: POTASSIUM CHLORIDE CRTAB 20 MEQ TABCR PO STA (08:21)
--- NOTE | 2024-08-25 13:25 | Hospitalist Progress Note ---
Date of Service August 25, 2024 Assessment & Plan (1) Acute cholecystitis: Plan: This is a 74-year-old gentleman with past medical history of hyperlipidemia, type 2 diabetes, diabetic neuropathy, obesity who presented to the ER on 08/23/2024 with a chief complaint of chest pain, fevers/chills x 2 days. Patient meets sepsis criteria with source being gallbladder. Troponin negative x 2. Urinalysis negative. Respiratory biofire negative CXR negative Chest CTA findings concerning for acute cholecystitis but negative for PE or pneumonia Gallbladder US: gallbladder distention w/ mild gallbladder wall thickening. CTAP: severe acute cholecystitis Blood cultures no growth at 24 hours Gallbladder fluid culture: low counts probable mixed smith General surgery consulted, appreciate recommendations. S/p cholecystectomy 08/[address] Macias - gangrenous gallbladder on Op report - continue IV abx --> Ertapenem - low-fat diet Encourage OOB, IS PT/OT ordered AM CBC, BMP (2) Sepsis: Plan: see plan above (3) Type 2 diabetes mellitus with obesity: Plan: hold outpatient diabetic medication - metformin and Januvia Sliding scale while inpatient Range of 110-180mg/dl Correction factor of 25 Last A1c 06/2024: 6.2% (4) Hypoxia: Plan: Baseline - room air Likely secondary to atelectasis weaned down to 2L during my encounter continue IS Plan Chronic conditions: HTN: cholrathalidone held, resume losartan for 08/26 Mental health: Bupropion, Mirtazapine HLD: statin Insomnia: Trazodone GERD: PPI Neuropathy: gabapentin DVT prophylaxis: heparin SQ Disposition: continued inpatient stay updated at bedside 08/24 Admission and Anticipated Discharge Date Admission Date: August 23, 2024 Supervising Physician Co-Signing Physician Notes Attending Attestation - Chart reviewed, care plan d/w KENN Brizuela. I agree w/ the sosa components of her documentation. Appreciate general surgery assistance. OOB/ambulate. Cont IV abx for now. Dispo planning. Petey Parra MD Subjective patient seen sitting up in the chair, still has some mild abdominal discomfort that radiates to the right upper quadrant. Still requiring oxygen, denies cough. Appetite is fair, no pain with eating. Encourage patient to continue to get out of bed to the chair and to ambulate in the hallway Review of Systems Review of Systems: All systems reviewed & are unremarkable except as noted in Subjective Physical Exam Physical Exam: General: NAD, VS as above, flat affect, sitting up in the chair Resp: normal respiratory effort, coarse in the bases CV: RRR, no murmur, Abd: normal bowel sounds, soft and reports generalized tender, dressing c/d/i, Extremities: Moves all extremities, no edema Neuro: A&O x3, Skin: intact, no lesions noted Results & Data Results & Data Vital Signs (Past 12 Hours) Vital Signs Temp Pulse Resp BP Pulse Ox O2 Del Method O2 Flow Rate 08/25/24 11:19 97.9 F 104 H 18 109/69 94 Nasal Cannula 2 08/25/24 07:53 98.8 F 89 16 112/65 92 Nasal Cannula 2 08/25/24 07:25 Nasal Cannula 2 08/25/24 04:00 98.2 F 92 H 18 110/66 94 Nasal Cannula 2 Laboratory Results CBC and chemistry reviewed PG Care Time/CCT Total # of Minutes Spent Total Time Spent with Patient: Total time spent is greater than 50% in coordination of care (as documented) at patient's floor/unit and/or counseling patient: Coding Level of Care Code 47448 SUB INP/OBS CARE 2/35MIN Diagnoses Acute cholecystitis K81.0 Sepsis A41.9 Type 2 diabetes mellitus with obesity E11.69; E66.9 Hypoxia R09.02
[2024-08-25] MEDS: oxyCODONE HCL IR 5 MG TAB (IMMEDIATE RELEASE) PO PRN (21:16)
[2024-08-26 06:47] LABS: Hematocrit (blood only) 29.8 % (42.0-52.0); Hemoglobin 9.9 g/dl (14.0-18.0); Mean Corpuscular Hemoglobin 28.9 pg (25.0-34.0); Mean Corpuscular Hgb Conc 33.2 g/dL (32.0-36.0); Mean Corpuscular Volume 87.1 fL (80.0-100.0); Mean Platelet Volume 9.4 fL (9.4-12.4); Platelet Count 166 K/uL (130-400); RDW Coefficient of Variation 13.5 % (11.5-14.5); RDW Standard Deviation 43.1 fL (36.4-46.3); Red Blood Count 3.42 M/uL (4.70-6.10); White Blood Count 4.94 K/ul (4.8-10.8)
[2024-08-26 07:23] LABS: Calcium 8.8 mg/dl (8.6-10.3); Creatinine Clr Calc Pharmacy 72.2 ml/min; Potassium 3.7 mmol/L (3.5-5.1)
--- NOTE | 2024-08-26 08:15 | Surgery Progress Note ---
Date of Service August 26, 2024 Assessment & Plan (1) Acute cholecystitis: Plan: POD #3 status post laparoscopic cholecystectomy Pathology noted intraoperative cultures basically negative Plan Continue with antibiotic Keep drain in for now Increase activity Add Dulcolax suppository Admission and Anticipated Discharge Date Admission Date: August 23, 2024 Subjective No abdominal discomfort although he has not moved his bowels passing flatus Physical Exam Physical Exam: Alert coherent no respiratory issues still on oxygen nasal cannula 2 L/min O2 sats 95 Neel drain with serosanguineous drainage 50 cc 24 hours The abdomen slightly distended symptomatic no localized tenderness Results & Data Vital Signs (Past 12 Hours) Vital Signs Temp Pulse Pulse Resp BP Pulse Ox O2 Del Method 08/26/24 07:59 36.6 C 99 H 20 113/62 95 Nasal Cannula 08/26/24 07:22 86 08/26/24 02:14 36.5 C 81 16 117/74 97 Nasal Cannula 08/26/24 00:24 Nasal Cannula 08/25/24 22:20 36.7 C 89 16 125/69 95 Nasal Cannula 08/25/24 22:00 92 H O2 Flow Rate 08/26/24 07:59 2 08/26/24 07:22 08/26/24 02:14 2 08/26/24 00:24 2 08/25/24 22:20 2 08/25/24 22:00 Laboratory Results Hemoglobin 9.9 with minor fluctuations stable since surgery with
[2024-08-26] MEDS: LOSARTAN POTASSIUM 25 MG TAB PO SCH (08:47)
[2024-08-26 08:56] LABS: Albumin Level 3.1 gm/dl (3.4-5.0); Bilirubin Direct 0.1 mg/dl (0-0.2); Bilirubin,Total 0.4 mg/dl (0.2-1.0); Total Protein 5.7 gm/dl (6.0-8.3)
[2024-08-26] MEDS: bisacodyL 10 MG SUPP PR PRN (10:25)
--- NOTE | 2024-08-26 11:23 | XRay Report ---
TWO VIEW CHEST CLINICAL HISTORY: Hypoxia. Recent surgery. FINDINGS: PA and lateral chest radiographs are compared to chest x-ray and chest CT dated 08/23/2024. The heart is mildly enlarged noting atherosclerotic calcification of the thoracic aorta. The pulmonar y vasculature is noncongested. There are small pleural effusions with dependent consolidation. There is no pneumothorax. The skeletal structures are osteopenic. There is chronic deformity of the sternum . A right shoulder arthroplasty is in place. Degenerative change is noted in the spine. A surgical dr guidry and surgical clips project over the right upper quadrant. There is intraperitoneal free air below the diaphragm. IMPRESSION: 1. Intraperitoneal free air is seen below the diaphragm. This is nonspecific given the history of rec ent abdominal surgery. Correlate clinically. 3. Mild cardiomegaly without radiographic evidence of congestive failure. 3. Small pleural effusions with dependent consolidation. This likely represents atelectasis and clini sherri correlation will be required ACT 112: Negative or not required by law. Electronically signed by: Beto Brand M.D. 08/26/2024 11:22 AM
--- NOTE | 2024-08-26 12:54 | Hospitalist Progress Note ---
Date of Service August 26, 2024 Assessment & Plan (1) Acute cholecystitis: Plan: This is a 74-year-old gentleman with past medical history of hyperlipidemia, type 2 diabetes, diabetic neuropathy, obesity who presented to the ER on 08/23/2024 with a chief complaint of chest pain, fevers/chills x 2 days. Patient meets sepsis criteria with source being gallbladder. Troponin negative x 2. Urinalysis negative. Respiratory biofire negative CXR negative Chest CTA findings concerning for acute cholecystitis but negative for PE or pneumonia Gallbladder US: gallbladder distention w/ mild gallbladder wall thickening. CTAP: severe acute cholecystitis Blood cultures no growth at 48 hours Gallbladder fluid culture: low counts probable mixed smith General surgery consulted, appreciate recommendations. S/p cholecystectomy 08/[address] Macias - gangrenous gallbladder on Op report - continue IV abx --> Ertapenem - keep drain, increase activity Encourage OOB, IS, FV ordered PT/OT ordered- recommend return home AM CBC, CMP (2) Hypoxia: Plan: Baseline - room air 2V CXR: free air blow diaphragm, small effusions with atelectasis mainly needing oxygen with ambulation encourage increased activity, flutter valve and incentive spirometer. May need to step prior to discharge (3) Sepsis: Plan: see plan above (4) Type 2 diabetes mellitus with obesity: Plan: hold outpatient diabetic medication - metformin and Januvia Sliding scale while inpatient Range of 110-180mg/dl Correction factor of 25 Last A1c 06/2024: 6.2% BSG well controlled Plan Chronic conditions: HTN: continue cholrathalidone and losartan Mental health: Bupropion, Mirtazapine HLD: statin Insomnia: Trazodone GERD: PPI Neuropathy: gabapentin DVT prophylaxis: heparin SQ Disposition: continued inpatient stay updated at bedside 08/24 Admission and Anticipated Discharge Date Admission Date: August 23, 2024 Supervising Physician Co-Signing Physician Notes Attending Attestation - Chart reviewed, care plan d/w KENN Brizuela. I agree w/ the sosa components of her documentation. Petey Parra MD Subjective Patient seen sitting up in a chair, states he did have a bowel movement today. Discussed the findings of his x-ray and the importance of incentive spirometer flutter valve and ambulation in the halls. Still requiring oxygen with ambulation. Rates his belly pain a 2-3 out of 10 telemetry sinus rhythm with PVCs and PACs 80s to 90s Review of Systems Review of Systems: All systems reviewed & are unremarkable except as noted in Subjective Physical Exam Physical Exam: General: NAD, VS as above, flat affect, sitting up in the chair Resp: normal respiratory effort, diminished in the bases CV: RRR, no murmur, Abd: normal bowel sounds, soft nontender, dressing c/d/i, Extremities: Moves all extremities, no edema Neuro: A&O x3, Skin: intact, no lesions noted Results & Data Results & Data Vital Signs (Past 12 Hours) Vital Signs Temp Pulse Pulse Resp BP Pulse Ox O2 Del Method 08/26/24 11:57 98.4 F 74 16 113/70 93 Room Air 08/26/24 09:02 Nasal Cannula 08/26/24 07:59 97.9 F 99 H 20 113/62 95 Nasal Cannula 08/26/24 07:22 86 08/26/24 02:14 97.7 F 81 16 117/74 97 Nasal Cannula O2 Flow Rate 08/26/24 11:57 08/26/24 09:02 2 08/26/24 07:59 2 08/26/24 07:22 08/26/24 02:14 2 Laboratory Results CBC, chemistry and UA reviewed Diagnostic Findings chest x-ray reviewed PG Care Time/CCT Total # of Minutes Spent Total Time Spent with Patient: Total time spent is greater than 50% in coordination of care (as documented) at patient's floor/unit and/or counseling patient: Coding Level of Care Code 92630 SUB INP/OBS CARE 3/50MIN Diagnoses Acute cholecystitis K81.0 Hypoxia R09.02 Sepsis A41.9 Type 2 diabetes mellitus with obesity E11.69; E66.9
[2024-08-26] MEDS: ACETAMINOPHEN 325 MG TAB PO PRN (17:59)
[2024-08-26] MEDS: CHLORTHALIDONE 25 MG TAB PO SCH (20:17)
[2024-08-26] MEDS ORDERED: ATORVASTATIN 20 MG TAB PO SCH (21:00)
[2024-08-26 23:37] VITALS: RESP 16
--- NOTE | 2024-08-27 06:32 | Surgery Progress Note ---
Date of Service August 27, 2024 Assessment & Plan (1) Acute cholecystitis: Plan: The fourth postoperative day status post laparoscopic cholecystectomy Patient is doing well liver function test from yesterday were all normal is remained afebrile Intraoperative cultures of gallbladder no growth Blood cultures no growth WBCs normal without a left shift At this point we will take the Neel drain out today discharge when okay with the medical service no further need of antibiotics since 6 out of 4 days and all parameters within normal limits (2) CYNTHIA on CPAP: Admission and Anticipated Discharge Date Admission Date: August 23, 2024 Subjective Feels much better than yesterday bowel movement tolerating a diet feels like he is breathing better Physical Exam Physical Exam: When I first walked in the room he was sleeping and woke easily with verbal stimuli Is alert coherent no distress Respiration no audible wheezing or rails Abdomen much softer no localized tenderness Neel drainage 30 cc nonbilious old blood Results & Data Vital Signs (Past 12 Hours) Vital Signs Temp Pulse Pulse Resp BP Pulse Ox O2 Del Method 08/27/24 02:37 36.3 C L 62 16 109/65 97 Nasal Cannula 08/26/24 23:17 36.5 C 82 16 117/67 95 Nasal Cannula 08/26/24 21:43 Nasal Cannula 08/26/24 21:40 84 08/26/24 21:35 84 08/26/24 19:19 36.9 C 91 H 18 109/72 95 Nasal Cannula O2 Flow Rate 08/27/24 02:37 2 08/26/24 23:17 5 08/26/24 21:43 2 08/26/24 21:40 08/26/24 21:35 08/26/24 19:19 2
[2024-08-27 07:26] LABS: Basophils # (auto) 0.02 K/uL (0.00-0.20); Basophils % (auto) 0.5 %; Eosinophils # (auto) 0.19 K/uL (0.00-0.50); Eosinophils % (auto) 4.6 %; Hematocrit (blood only) 30.8 % (42.0-52.0); Immature Granulocytes # (auto) 0.02 K/uL (0.01-0.20); Immature Granulocytes % (auto) 0.5 %; Lymphocytes # (auto) 0.69 K/uL (1.20-3.40); Lymphocytes % (auto) 16.7 %; Mean Corpuscular Hemoglobin 28.7 pg (25.0-34.0); Mean Corpuscular Hgb Conc 32.5 g/dL (32.0-36.0); Mean Corpuscular Volume 88.3 fL (80.0-100.0); Monocytes # (auto) 0.77 K/uL (0.11-0.59); Monocytes % (auto) 18.7 %; Neutrophils # (auto) 2.43 K/uL (1.40-6.50); Platelet Count 192 K/uL (130-400); RDW Coefficient of Variation 13.5 % (11.5-14.5); RDW Standard Deviation 43.8 fL (36.4-46.3); Red Blood Count 3.49 M/uL (4.70-6.10); White Blood Count 4.12 K/ul (4.8-10.8)
[2024-08-27 07:41] LABS: Albumin Globulin Ratio 1.2 (0.9-2); Albumin Level 3.2 gm/dl (3.4-5.0); Bilirubin,Total 0.3 mg/dl (0.2-1.0); Calcium 8.8 mg/dl (8.6-10.3); Globulin 2.7 gm/dl (2.5-4.0); Potassium 3.9 mmol/L (3.5-5.1); Total Protein 5.9 gm/dl (6.0-8.3)
[2024-08-27 10:12] VITALS: O2SAT 92
[2024-08-27 12:07] VITALS: BP 119/71; PULSE 72; TEMP 98.8
--- NOTE | 2024-08-27 13:29 | Discharge Summary ---
Discharge Summary Date of Service August 27, 2024 Principal Dx & Hospital Course #1 = Principal Diagnosis (1) Acute cholecystitis: This is a 74-year-old gentleman with past medical history of hyperlipidemia, type 2 diabetes, diabetic neuropathy, obesity who presented to the ER on 08/23/2024 with a chief complaint of chest pain, fevers/chills x 2 days. Patient meets sepsis criteria with source being gallbladder. Troponin negative x 2. Urinalysis negative. Respiratory biofire negative CXR negative Chest CTA findings concerning for acute cholecystitis but negative for PE or pneumonia Gallbladder US: gallbladder distention w/ mild gallbladder wall thickening. CTAP: severe acute cholecystitis Blood cultures no growth at 48 hours Gallbladder fluid culture: low counts probable mixed smith General surgery consulted, appreciate recommendations. S/p cholecystectomy 08/[address] Macias - gangrenous gallbladder on Op report - no further abx indicated - drain removed 08/27 Encourage OOB, IS, FV ordered PT/OT ordered- recommend return home Continues to improve, drain removed, tolerated well. Discharge to home today. (2) Hypoxia: Baseline - room air 2V CXR: free air blow diaphragm, small effusions with atelectasis mainly needing oxygen with ambulation encourage increased activity, flutter valve and incentive spirometer. Two step day of discharge - does NOT require oxygen at discharge (3) Sepsis: see plan above (4) Type 2 diabetes mellitus with obesity: outpatient diabetic medication - metformin and Januvia held during admission Last A1c 06/2024: 6.2% BSG well controlled inpatient - continue home regiment at discharge Plan Chronic conditions: HTN: continue cholrathalidone and losartan Mental health: Bupropion, Mirtazapine HLD: statin Insomnia: Trazodone GERD: PPI Neuropathy: gabapentin Dispo: discharge to home today updated at bedside 08/24 Notes For Next Care Provider admitted with acute cholecystitis, recovering well after surgery. No antibiotics indicated at discharge. Two-step day of discharge not requiring oxygen No changes to home medications Admission HPI Per Admitting Provider This is a 74-year-old gentleman with past medical history of hyperlipidemia, type 2 diabetes, diabetic neuropathy, obesity who presented to the ER on 08/23/2024 with a chief complaint of chest pain, fevers/chills x 2 days. The patient was seen and examined this afternoon. Patient's was at bedside. Patient was resting comfortably in bed at time of encounter and appeared in no acute distress. Patient was seen at an outside hospital facility yesterday and was discharged home after an unremarkable workup. Overnight he had then developed severe chills and had required multiple blankets to keep warm. He denied any fevers. He has been having right sided chest pain without radiation. He also has been having shortness of breath. Patient states that he does not have any history of COPD/asthma. He was on 4 L nasal cannula at time of my encounter. He denied nausea, vomiting. He did admit to right upper abdominal discomfort. He also states that he has not had a bowel movement in about 3 days which is abnormal for him. Denies any leg edema. He denies any urinary symptoms. While in the ED, patient was found to have severe acute cholecystitis on CT imaging. General surgery was consulted. He was given IV ertapenem. He was also febrile at 39.4 C. He was given Tylenol. Patient was also found to be tachycardic with heart rates as high as 143. He was also given 10 mg of diltiazem. Discharge Exam General: NAD, VS as above, improved affect, sitting up in the chair Resp: normal respiratory effort, clear to auscultation CV: RRR, no murmur, Abd: normal bowel sounds, soft nontender, dressing c/d/i, drain in place Extremities: Moves all extremities, no edema Neuro: A&O x3, Skin: intact, no lesions noted Discharge Plan Discharge Items Patient Disposition: Home - Self-Care Reason For Visit: SHORTNESS OF BREATH, CHEST PAIN Discharge Diagnosis: Acute cholecystitis Activity: Resume your previous activity Non-emergency contact: Primary Care Provider and Surgeon Call non-emergency contact if: you have any medication questions, your symptoms worsen, your temperature is above 101, your wound has increased redness, your wound has increased drainage and your wound pain has increased Follow-up/Referrals: Carlitos Macias MD, FACS [Surgeon] - 09/08/24 1:45 am Flakito Mayo DO [Primary Care Provider] - 09/02/24 9:15 am (with LEDY Mullen) Diet: Low Fiber Addtl Attending Provider Instructions: Mr. Madison, You were hospitalized after continued pain which turned out to be your gallbladder. You have continued to progress well after surgery. You were evaluated by the respiratory therapist and do not need oxygen to go home with. You should continue to use the incentive spirometer at home. The surgery team di d not recommend any further antibiotics. Recommendations: - follow up with PCP in one week - Follow up with surgeon as directed - continue to use incentive spirometer - tylenol for pain. oxycodone sparingly as this can cause constipation - continue daily miralax, can be twice a day if not having good bowel movements, or use an OTC suppository - continue to follow a low fat diet, handout attached below - don't take oxycodone at the same time as your trazadone - do not drive while taking oxycodone No changes to your home medications You have blood cultures pending at the time of discharge, they are negative at 48 hours but take 5 days to get final results. If they turn positive you will be notified, you can also check in with your PCP or the [facility] portal. However, given your symptoms I do not expect they will be positive. CONTACT YOUR PRIMARY CARE PROVIDER or surgeon if you experience any of the following: Shortness of breath or difficulty breathing Fevers or chills Feeling tired with normal activity or experiencing dizziness or fainting Difficulty following your treatment plan, or difficulty taking medications - increase drainage, redness or pain at wound site CALL 911 OR GO TO THE EMERGENCY DEPARTMENT if you experience any of the following: Severe abdominal pain or nausea/vomiting Severe chest pain, or chest pain that radiates (moves) to your jaw or arm Sudden, severe shortness of breath or difficulty breathing Thank you for allowing us to participate in your care. Lidya GUAMAN Pending Studies at Discharge: Yes (blood cultures ) Stand-Alone Forms: My Tyrogenex, Smoking Cessation Medications and DC Order Prescriptions: New polyethylene glycol 3350 [Miralax] 17 gram Powder In Packet 17 g PO DAILY Qty: 30 0RF Continued albuterol sulfate [Ventolin HFA] 90 mcg/actuation HFA aerosol inhaler 2 puff INH Q6H PRN (Reason: shortness of breath or wheezing) Qty: 8.5 2RF gabapentin 300 mg capsule See Rx Instructions .ROUTE .COMPLEX Qty: 360 3RF Dose Instruction: TAKE 1 CAPSULE TWICE A DAY, AND 2 CAPSULES AT BEDTIME Rx Instructions: Take 300mg in the morning and noon time. Then take 600mg at bedtime losartan [Cozaar] 25 mg tablet 25 mg PO QAM Qty: 90 3RF metformin 500 mg tablet 1,000 mg PO BID Qty: 360 3RF cyanocobalamin (vitamin B-12) 1,000 mcg/mL kit 1,000 mcg IM MONTHLY Qty: 1 12RF Januvia 100 mg tablet 100 mg PO QAM Qty: 90 3RF Rx Instructions: TAKE 1 TABLET EVERY MORNING bupropion HCl 300 mg tablet extended release 24 hr 300 mg PO QAM Qty: 90 1RF (DME) BD Integra Syringe 3 mL 25 gauge x 5/8" syringe See Rx Instructions .Route Qty: 5 3RF Rx Instructions: As directed calcium carbonate [Calcium 600] 600 mg calcium (1,500 mg) tablet 600 mg PO HS omega-3 acid ethyl esters [Lovaza] 1 gram capsule 1 cap PO HS (DME) CPAP Supplies Misc See Rx Instructions .Route Qty: 1 0RF Rx Instructions: As directed- all supplies (DME) Auto Titrating CPAP Misc See Rx Instructions .Route Qty: 1 0RF Rx Instructions: 5-15 cmH20 auto titrating humidified aspirin [Facundo Low Dose Aspirin] 81 mg Tablet,Delayed Release (Dr/Ec) 81 mg PO HS cholecalciferol (vitamin D3) [Vitamin D3] 2,000 unit Tablet 2,000 units PO QAM budesonide-formoterol [Symbicort] 80-4.5 mcg/actuation HFA aerosol inhaler 2 puff inhalation BID PRN (Reason: Shortness Of Breath Or Wheezing) trazodone 50 mg tablet 50 mg PO HS No Action atorvastatin 20 mg tablet 20 mg PO HS Qty: 90 3RF Rx Instructions: TAKE 1 TABLET AT BEDTIME omeprazole 40 mg capsule,delayed release(DR/EC) 40 mg PO BID Qty: 180 3RF mirtazapine 7.5 mg tablet 7.5 mg PO HS Qty: 90 1RF chlorthalidone 25 mg tablet 12.5 mg PO HS Qty: 90 1RF Discharge Orders: Discharge Order (Routine); Ordered 08/27/24 Ordered By: Lidya Selby/Other Patient Handouts: ED Diet, Low Fat Admission Data Admit Date/Time: 08/23/24 16:16 Attending Provider: Petey Parra Admit Provider: Petey Donnelly Primary Care Provider: Flakito Mayo Other Providers: Carlitos Macias; IRB Approved Study,Wilson Other Interventions: Discharge Summary Assessment (RN) Last Done: 08/27/24 13:26 Hospital Stay Data Consultations 08/23/24 15:46 Consult General Surgery Stat 08/23/24 15:58 ED Decision to Admit Stat Procedures Performed Operation Date: 08/23/24 18:00 Actual Procedures p Laparoscopic Cholecystectomy(Not Applicable) - Carlitos Macias MD, FACS Diagnostic Imagining Performed Chest X-Ray 08/23/24 08:34 XR chest 1V portable CLINICAL HISTORY: Dyspnea COMPARISON STUDY: Chest radiograph March 26, 2023. Chest CT December 24, 2023. FINDINGS: Right shoulder arthroplasty is incidentally noted. Linear left basilar density represents atelectasis or scarring. Cardiomediastinal silhouette is stable. There is no evidence for pulmonary edema. There is no consolidation to suggest pneumonia. IMPRESSION: No acute cardiopulmonary findings. No significant change in appearance of the chest. ACT 112: Negative or not required by law. Electronically signed by: Bertrand Ruiz M.D. 08/23/2024 9:11 AM Chest CTA 08/23/24 09:51 CT ANGIOGRAPHY OF THE CHEST, PULMONARY EMBOLUS PROTOCOL CLINICAL HISTORY: Shortness of breath and chest pain. Evaluate for pulmonary embolus. COMPARISON STUDY: Chest CT December 24, 2023. TECHNIQUE: Following IV administration of 112 mL of Optiray, helical axial images of the chest were obtained utilizing the pulmonary embolus protocol. Maximal intensity projections and sagittal and coronal reformats were viewed on an independent 3D workstation. IV contrast was administered without complication. Automated exposure control was utilized for the study. A dose lowering technique was utilized adhering to the principles of ALARA. CT DOSE: 671.35 mGy.cm FINDINGS: No pulmonary emboli are identified although segmental and subsegmental pulmonary arteries are suboptimally assessed due to respiratory motion. The heart is moderately enlarged. Moderate coronary artery calcification is present. There is no pericardial effusion. No pneumothorax or pleural effusion is present. No consolidation is identified to suggest pneumonia. Groundglass opacities and linear densities suggestive atelectasis. A few small pulmonary nodules are unchanged. There are no suspicious pulmonary nodules. Gallbladder is partially imaged on this exam however the gallbladder is likely distended with adjacent stranding which extends into the carlos hepatis. A 2.1 cm left adrenal nodule is unchanged since CT of June 16, 2021. This is likely benign. IMPRESSION: 1. No pulmonary emboli identified although segmental and subsegmental pulmonary arteries suboptimally assessed due to respiratory motion. 2. Findings suspicious for acute cholecystitis however gallbladder only partia lly imaged on this exam. A CT of the abdomen or right upper quadrant ultrasound is recommended for confirmation. 3. No consolidation to suggest pneumonia. ACT 112: Negative or not required by law. Electronically signed by: Bertrand Ruiz M.D. 08/23/2024 11:34 AM Gallbladder Ultrasound 08/23/24 11:49 US gallbladder CLINICAL HISTORY: Epigastric pain/chest pain. COMPARISON STUDY: CT of the abdomen and pelvis June 16, 2021. Chest CT August 23, 2024. FINDINGS: The liver is sonographically normal. There is no biliary ductal dilatation. The gallbladder is moderately distended. The wall is mildly thickened. No sonographic Joseph sign was elicited. No gallstones were identified. The pancreas is obscured. No right hydronephrosis is present. There is a 4.9 cm right renal cyst. IMPRESSION: 1. Gallbladder distention with mild gallbladder wall thickening. However, no gallstones or sonographic Joseph sign. If right upper quadrant pain, a CT of the abdomen is recommended to exclude acute cholecystitis. 2. No biliary ductal dilatation. 3. Obscured pancreas. ACT 112: Negative or not required by law. Electronically signed by: Bertrand Ruiz M.D. 08/23/2024 1:26 PM Abdomen/Pelvis CT 08/23/24 13:33 CT SCAN OF THE ABDOMEN AND PELVIS WITHOUT IV CONTRAST CLINICAL HISTORY: Epigastric abdominal pain. Constipation. COMPARISON STUDY: Abdominal CT dated 06/16/2021. TECHNIQUE: CT scan of the abdomen and pelvis is performed from the lung bases to the proximal femora. Images are reviewed in the axial, sagittal, and coronal planes. IV contrast was not administered for this examination. Note that the examination was performed in suboptimal fashion without oral and IV contrast. A dose lowering technique was utilized adhering to the principles of ALARA. CT DOSE: 1133.94 mGy.cm FINDINGS: Lung bases: The heart is normal in size and without pericardial effusion. The coronary arteries are densely calcified. There is trace right pleural effusion. Dependent scarring/atelectasis is noted at both lung bases. Postoperative changes seen at the right lung base. Liver: The unenhanced liver is normal in size, contour, and attenuation. There is no intrahepatic biliary ductal dilatation. Gallbladder: The gallbladder is markedly distended. The gallbladder wall is thickened and edematous, with surrounding inflammation and fluid. Findings are consistent with acute cholecystitis. Spleen: Normal in size and attenuation. Pancreas: The unenhanced pancreas is mildly atrophic and grossly unremarkable. Adrenal glands: An indeterminant 2.4 cm left adrenal nodule is similar to previous. The right adrenal gland is normal in appearance. Kidneys: The unenhanced kidneys are normal in size and without hydronephrosis. Excreted IV contrast is seen in the renal collecting systems and ureters. This degrades assessment for renal calculi. Bilateral renal cysts measure up to 6.6 cm. Abdominal vasculature: The abdominal aorta is normal in course and caliber. Bowel: There is moderate colonic fecal retention. No bowel obstruction is seen. There is mild colonic diverticulosis without CT evidence of acute diverticulitis. The appendix is well-visualized and normal. Peritoneum: There is no intraperitoneal free air or abdominal ascites. Lymphadenopathy: None. Pelvic viscera: The prostate gland is enlarged and heterogeneous. The bladder wall appears thickened/trabeculated indicating chronic outlet obstruction. The bladder is filled with excreted IV contrast. Skeletal structures: The skeletal structures are osteopenic. There is moderate to advanced lumbosacral spondylosis. No lytic or blastic lesions are seen. IMPRESSION: 1. Suboptimal examination without oral and IV contrast. 2. Severe acute cholecystitis. Surgical evaluation is advised. 3. Trace right pleural effusion. 4. Additional findings as above. ACT 112: Negative or not required by law. Electronically signed by: Beto Brand M.D. 08/23/2024 3:25 PM Chest X-Ray 08/26/24 08:03 TWO VIEW CHEST CLINICAL HISTORY: Hypoxia. Recent surgery. FINDINGS: PA and lateral chest radiographs are compared to chest x-ray and chest CT dated 08/23/2024. The heart is mildly enlarged noting atherosclerotic calcification of the thoracic aorta. The pulmonary vasculature is noncongested. There are small pleural effusions with dependent consolidation. There is no pneumothorax. The skeletal structures are osteopenic. There is chronic deformity of the sternum. A right shoulder arthroplasty is in place. Degenerative change is noted in the spine. A surgical drain and surgical clips project over the right upper quadrant. There is intraperitoneal free air below the diaphragm. IMPRESSION: 1. Intraperitoneal free air is seen below the diaphragm. This is nonspecific given the history of recent abdominal surgery. Correlate clinically. 3. Mild cardiomegaly without radiographic evidence of congestive failure. 3. Small pleural effusions with dependent consolidation. This likely represents atelectasis and clinical correlation will be required ACT 112: Negative or not required by law. Electronically signed by: Beto Brand M.D. 08/26/2024 11:22 AM Pending Results Patient Have Any Pending Studies at Discharge: Yes (blood cultures ) Discharge Instructions Given to Patient (Per Discharging Provider) Mr. Madison, You were hospitalized after continued pain which turned out to be your gallbladder. You have continued to progress well after surgery. You were evaluated by the respiratory therapist and do not need oxygen to go home with. You should continue to use the incentive spirometer at home. The surgery team did not recommend any further antibiotics. Recommendations: - follow up with PCP in one week - Follow up with surgeon as directed - continue to use incentive spirometer - tylenol for pain. oxycodone sparingly as this can cause constipation - continue daily miralax, can be twice a day if not having good bowel movements, or use an OTC suppository - continue to follow a low fat diet, handout attached below - don't take oxycodone at the same time as your trazadone - do not drive while taking oxycodone No changes to your home medications You have blood cultures pending at the time of discharge, they are negative at 48 hours but take 5 days to get final results. If they turn positive you will be notified, you can also check in with your PCP or the [facility] portal. However, given your symptoms I do not expect they will be positive. CONTACT YOUR PRIMARY CARE PROVIDER or surgeon if you experience any of the following: Shortness of breath or difficulty breathing Fevers or chills Feeling tired with normal activity or experiencing dizziness or fainting Difficulty following your treatment plan, or difficulty taking medications - increase drainage, redness or pain at wound site CALL 911 OR GO TO THE EMERGENCY DEPARTMENT if you experience any of the following: Severe abdominal pain or nausea/vomiting Severe chest pain, or chest pain that radiates (moves) to your jaw or arm Sudden, severe shortness of breath or difficulty breathing Thank you for allowing us to participate in your care. Lidya GUAMAN Supervising Physician Co-Signing Physician Notes Attending Attestation and Discharge Note: Pt seen/examined, chart reviewed, discharge care plan d/w KENN Brizuela. I agree w/ the sosa components of her discharge documentation. 74yo female with history of T2DM, HTN, and GERD who presented with fevers, chills, and lower chest discomfort/RUQ abd pain. Chest CTA at time of presentation showed findings concerning for acute cholecystitis but negative for PE or pneumonia. RUQ u/s showed Gallbladder distention with mild gallbladder wall thickening. He was started on broad-spectrum IV antibiotics and was seen in consult by general surgery. On 08/23/24 he was taken to the OR by Dr Zander Macias for laparoscopic cholecystectomy. Gall bladder appeared gangrenous at time of surgery. Post-op course was marked by slow advancement in his diet. He required NC O2 for much of the post-op course. This was likely due to significant atelectasis. He did not have any decompensat ed CHF, pneumonia, etc contributing to his oxygen requirement. By time of discharge he was tolerating a regular diet and he was no longer requiring NC O2. He will not need any antibiotics upon discharge home. Discharge exam: gen - NAD, sitting in chair mouth - MMM neck - no JVD heart - RRR, s1 s2 lungs - decreased BS bases, otherwise CTA b/l abd - mildly distended, BS+, incisions abdominal wall clean, dressings intact, minimal incisional tenderness only ext - no edema, pulses 2+ b/l psych - a/o x 3 He will have f/u with Dr Macias for a post-op check within 2 weeks of discharge. Petey Parra MD Total Time Total Time Spent Total Time Spent (In Minutes): Time spent day of discharge 35 minutes including direct patient care, medication reconciliation, documentation, review of labs and images, and coordination of care. Coding Level of Care Code 83425 INP/OBS DISCH >30 MIN Diagnoses Acute cholecystitis K81.0 Hypoxia R09.02 Sepsis A41.9 Type 2 diabetes mellitus with obesity E11.69; E66.9
== END 2024-08-27 14:15 | disposition home or self-care (01) | DRG 854 ==
LOC: ED 08:08 → SUATTDRO 16:16 → OR 17:28 → 2N 17:29 → SUATTDRO 17:29
DX: E78.5 Hyperlipidemia, unspecified; Z87.891 Personal history of nicotine dependence; K81.0 Acute cholecystitis; Z88.8 Allergy status to other drugs, medicaments and biological substances; Z79.899 Other long term (current) drug therapy; Z79.82 Long term (current) use of aspirin; E66.9 Obesity, unspecified; E11.40 Type 2 diabetes mellitus with diabetic neuropathy, unspecified; I10 Essential (primary) hypertension; R50.9 Fever, unspecified; G47.33 Obstructive sleep apnea (adult) (pediatric); R09.02 Hypoxemia; Z88.0 Allergy status to penicillin; A41.9 Sepsis, unspecified organism; R07.9 Chest pain, unspecified

== ENCOUNTER 2025-11-11 20:25 | Inpatient (IN) ==
[2025-11-11 20:30] VITALS: TEMP 99.3
--- NOTE | 2025-11-11 20:58 | Emergency Department Note ---
Impression & Plan COVID-19, COPD (chronic obstructive pulmonary disease), Weakness, Acute dyspnea ED Provider Note NAME: DONNA SANTIAGO AGE: 75 SEX: M : 1950 ARRIVES VIA: Walk-In INFORMANT: Patient, ED PROVIDER(S): Maxwell Luo MD CHIEF COMPLAINT: Shortness of breath, weakness, COVID-19 MEDICAL DECISION MAKING: The patient did present due to concern for COVID-19 illness and was not feeling well. Borderline hypoxia with sats at 9091%. IV was established and blood work was obtained. Patient was ordered breathing treatment and IV fluids. Did review the patient's history which did show that he does have a history of COPD so the patient was ordered IV methylprednisolone. Upon subsequent reassessment patient did feel improved. Still borderline hypoxic. Given these concerns and his age I did speak with the on-call hospital service Dr. He and the patient was admitted to the medicine service. Discussion w/ other healthcare providers: Dr. He inpatient medicine service Prior /Outside records reviewed: None Differential diagnosis: Infection, dehydration, metabolic abnormality, hypo/hyperglycemia, electrolyte imbalance, anemia, UTI, pneumonia, thyroid dysfunction among others were considered. Diagnostics, as interpreted by me: ECG: Sinus tachycardia, rate 116 normal intervals, left axis deviation no obvious STEMI. Cardiac monitoring: An order was placed for continuous cardiac monitoring. The monitor shows a rate of 85 with sinus rhythm. Patient was placed on pulse oximetry Medical decision rules: None Imaging studies: I informally interpreted the patient's chest x-ray does not show obvious consolidated pneumonia with formal report to follow. HPI: Patient presents due to concern for weakness fatigue shortness of breath. Patient states that he began having symptoms on Saturday at which time the patient did have an at home COVID test that was positive. He denies any chest pains. He has had cough with productive sputum. Former smoker but has not smoked in many years. He denies any leg swelling. Poor appetite. He denies any overt fever but has felt warm and cold. He is accompanied by his granddaughter. PAST MEDICAL HISTORY: See Below PAST SURGICAL HISTORY: See Below SOCIAL HISTORY: See Below HOME MEDICATIONS: See Below ALLERGIES: See Below VITALS: See Below PHYSICAL EXAMINATION: GENERAL: Mildly unwell but nontoxic. Wearing glasses. EYE EXAM: Normal conjunctiva. PERRL, no anisocoria and EOM's grossly intact w/o pain. OROPHARYNX: Moist mucus membranes, grossly normal dentition. NECK: Trachea midline, no stridor. LUNGS: Clear to auscultation. Normal chest wall mechanics. HEART: Tachycardic and regular, no MRG. ABDOMEN: Abdomen soft, non-tender, no masses, no rebound or guarding. BACK: No CVA TTP. SKIN: No rashes and no bruising. UPPER EXTREMITIES: Upper extremities are grossly normal. LOWER EXTREMITIES: Grossly normal, no edema. NEURO EXAM: Awake and alert, follows commands, no obvious facial asymmetry, normal speech, moves all 4 extremities. Past Med/Surg History Problem List (Updated 11/12/25 @ 14:36 by Maxwell Luo MD) Acute dyspnea (Acute) Weakness (Acute) COPD (chronic obstructive pulmonary disease) (Acute) COVID-19 (Acute) COPD, group B, by GOLD 2013 classification Hypertension (Acute) controlled, stable per pt Diabetes mellitus type 2 in nonobese Diabetic neuropathy Cough variant asthma Follows with pulm- minimal symptoms Aftercare following left shoulder joint replacement surgery Status post reverse total arthroplasty of left shoulder Erectile dysfunction CYNTHIA (obstructive sleep apnea) MDD (major depressive disorder), single episode, moderate Anemia Esophageal dysphagia EGD 11/2019 Acid reflux disease (Acute) controlled, stable per pt B12 deficiency Medical History History of colon polyps Mild emphysema well controlled; last rescue inhaler use 3 days ago; pt reports average use of 1-2 times/week Arthritis History of esophageal stricture stretching in past; no dysphagia currently Diabetes mellitus, type 2 Anxiety and depression Peripheral neuropathy noted to feet Sleep apnea no device used History of malignant neuroendocrine tumor No evidence of recurrence on CT chest from August 2024. Wedge resection of the right lower lobe in 2016. Continue with yearly lung cancer screening with next low-dose Aggnon's esophagus EGD 09/2024 , Followed by Dr. ANEL Case Hyperlipidemia History of kidney stones Mild emphysema Hypertension Premature atrial beats wore heart monitor, no further treatment needed per pt>no cards Acid reflux well controlled and stable Obesity (BMI 30-39.9) Adrenal nodule - indeterminate 2.4 cm left adrenal nodule is similar to previous (present since at least 2017 per records) Allergic rhinitis Surgical History Status post reverse total replacement of right shoulder (~04/2023) Hx laparoscopic cholecystectomy (08/23/24) Laparoscopic Cholecystectomy(Not Applicable) - Carlitos Macias MD, FACS History of bronchoscopy Dr. Rich History of esophagogastroduodenoscopy (EGD) History of open reduction and internal fixation (ORIF) procedure left wrist--+removal hardware History of total left knee replacement (TKR) History of total right knee replacement (TKR) History of lithotripsy History of colonoscopy 04/2022 Repeat 5 yrs History of tooth extraction Status post biopsy of thyroid gland benign nodule History of lung surgery 2014 right lung--lower lobe wedge resection Family History Mother Cardiac disorder Diabetes Myocardial infarction Father Diabetes Myocardial infarction Brother Stroke Aunt Breast cancer Other No family history of adverse response to anesthesia Denies family history of Ovarian cancer Prostate cancer Lung cancer Colorectal cancer Social History Smoking Status: Former smoker Tobacco Type: Cigarettes Age Started Using Tobacco: 18; Age Quit Using Tobacco: 29; packs per day: 0.5; Second Hand Exposure: No; Do You Dip or Chew Tobacco: No; Hx Alcohol Use: No Hx Substance Use: No Preferred Language: Haitian Communication Ability: Effective Visual Impairment: Limited Hearing Ability: Use of Hearing Aid 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 Beliefs That Will Affect Care: None marital status: Current Living Situation: Spouse and Family Current Living Situation Comment: Lives with and granddaughter and great grandson current occupational status: retired How many Children do You have: 2 Feels Safe at Home: Yes Childhood Exposure to Second-Hand Smoke: Yes Diet: regular caffeine: Yes (3 cups of coffee daily ) during the past year weight has: increased > 10 lbs Dental Care, Regularly: Yes Physical Activity Frequency: Daily Seatbelt Use: always Sunscreen Use: Yes Assistive Devices: Glasses and Hearing Aid - Bilateral Allergies Allergies Allergy/AdvReac Type Severity Reaction Status Date / Time Penicillins Allergy Severe throat Verified 09/09/25 11:08 swelling, hives fenofibrate Allergy Intermediate HIVES Verified 09/09/25 11:08 lisinopril AdvReac Mild cough Verified 09/09/25 11:08 Home Meds Home Medications Medication Instructions Recorded Confirmed aspirin 81 mg tablet,delayed 81 mg PO HS 11/20/18 11/12/25 release (Facundo Low Dose Aspirin) omega-3 acid ethyl esters 1 gram 1 cap PO HS 05/04/19 11/12/25 capsule (Lovaza) calcium carbonate (Calcium 600) 600 mg PO HS 01/21/20 11/12/25 polyethylene glycol 3350 17 gram 17 g PO DAILY PRN Constipation 09/30/24 11/12/25 oral powder packet (Miralax) clindamycin HCl 300 mg capsule 300 mg PO ONCE PRN Dental 11/12/25 11/12/25 prophylaxis gabapentin 300 mg capsule 300 mg PO BID 11/12/25 11/12/25 gabapentin 300 mg capsule 600 mg PO HS 11/12/25 11/12/25 Previous Rx's Medication Instructions Recorded albuterol sulfate 90 mcg/actuation 2 puff inhalation Q6H PRN 09/15/21 aerosol inhaler (Ventolin HFA) shortness of breath or wheezing #8.5 grams Auto Titrating CPAP #1 ea 03/13/24 CPAP Supplies #1 ea 03/13/24 metformin 500 mg tablet 1,000 mg (2 x 500 mg) PO BID #360 02/10/25 tabs cyanocobalamin (vitamin B-12) 1,000 mcg IM MONTHLY #1 ea 04/05/25 1,000 mcg/mL injection kit budesonide-formoterol HFA 80 2 puff inhalation BID #10.2 grams 04/13/25 mcg-4.5 mcg/actuation aerosol inhaler (Symbicort) omeprazole 40 mg capsule,delayed 40 mg PO BID #180 caps 05/06/25 release sitagliptin phosphate 100 mg 100 mg PO QAM #90 tabs 06/30/25 tablet (Januvia) atorvastatin 20 mg tablet 20 mg PO HS #90 tabs 08/12/25 chlorthalidone 25 mg tablet 12.5 mg (1/2 x 25 mg) PO HS #90 08/12/25 tabs mirtazapine 7.5 mg tablet 7.5 mg PO HS #90 tabs 08/18/25 bupropion HCl 300 mg 24 hr tablet, 300 mg PO QAM #90 tabs 09/07/25 extended release sildenafil 25 mg tablet 25 mg PO DAILY PRN sexual activity 09/07/25 #90 tabs losartan 25 mg tablet (Cozaar) 25 mg PO QAM #90 tabs 09/08/25 syringe with needle, safety 3 mL #5 ea 10/25/25 25 gauge x 5/8" (BD Integra Syringe) prednisone 10 mg tablet 10 mg PO DIRECTED #12 tabs 11/12/25 Results & Data (ED) Vital Signs Vital Signs - 24 hr 11/11/25 20:27 11/11/25 20:33 11/11/25 20:55 Temperature 37.4 C Temperature Source Oral Pulse Rate 128 H 123 H 117 H Pulse Rate [Right Finger] Pulse Rhythm Regular Pulse Rhythm [Right Finger] Pulse Strength [Right Finger] Respiratory Rate 22 Respiratory Effort / Characteristics Non-Labored Spontaneous Respiratory Depth Normal Respiratory Pattern Blood Pressure 142/80 H Blood Pressure [Right Arm] Blood Pressure Mean 100 Blood Pressure Mean [Right Arm] Blood Pressure Position [Right Arm] Pulse Oximetry 93 94 Oxygen Delivery Method Room Air Room Air Oxygen Flow Rate Sepsis Recent Fever Within 48 Hours No Sepsis New/Unexplained Change in Mental Status No Sepsis Action Taken by Nursing No Action Required 11/11/25 22:24 11/11/25 22:26 11/11/25 22:43 Temperature Temperature Source Pulse Rate Pulse Rate [Right Finger] 77 97 H Pulse Rhythm Pulse Rhythm [Right Finger] Regular Regular Pulse Strength [Right Finger] Normal Normal Respiratory Rate 16 16 Respiratory Effort / Characteristics Non-Labored Respiratory Depth Normal Respiratory Pattern Regular Blood Pressure Blood Pressure [Right Arm] 117/84 98/64 L Blood Pressure Mean Blood Pressure Mean [Right Arm] 95 75 Blood Pressure Position [Right Arm] Lying Pulse Oximetry 93 94 Oxygen Delivery Method Room Air Room Air Nasal Cannula Oxygen Flow Rate 3 Sepsis Recent Fever Within 48 Hours Sepsis New/Unexplained Change in Mental Status Sepsis Action Taken by Half-Way Medications Current Medication List: was personally reviewed by me Laboratory Data Attestation: I reviewed the patient's lab results. 11/12/25 04:37 11/12/25 04:37 Lab Results 11/11/25 11/11/25 Range/Units 21:19 22:00 WBC 6.79 (4.8-10.8) K/ul RBC 4.40 L (4.70-6.10) M/uL Hgb 11.6 L (14.0-18.0) g/dL Hct 35.9 L (42.0-52.0) % MCV 81.6 (80.0-100.0) fL MCH 26.4 (25.0-34.0) pg MCHC 32.3 (32.0-36.0) g/dL RDW Std Deviation 44.5 (36.4-46.3) fL RDW Coeff of Abelardo 15.0 H (11.5-14.5) % Plt Count 201 (130-400) K/uL MPV 8.9 L (9.4-12.4) fL Immature Gran % (Auto) 0.3 % Neut % (Auto) 75.2 % Lymph % (Auto) 11.0 % Braxton % (Auto) 13.0 % Eos % (Auto) 0.4 % Baso % (Auto) 0.1 % Neut # (Auto) 5.10 (1.40-6.50) K/uL Lymph # (Auto) 0.75 L (1.20-3.40) K/uL Braxton # (Auto) 0.88 H (0.11-0.59) K/uL Eos # (Auto) 0.03 (0.00-0.50) K/uL Baso # (Auto) 0.01 (0.00-0.20) K/uL Immature Gran # (Auto) 0.02 (0.01-0.20) K/uL Sodium 136 (136-145) mmol/L Potassium 3.9 (3.5-5.1) mmol/L Chloride 103 (98-107) mmol/L Carbon Dioxide 25 (21-32) mmol/L Anion Gap 8 (3-11) BUN 19 (6-23) mg/dl Creatinine 1.32 (0.6-1.4) mg/dl Est Cr Clr Drug Dosing 54.7 ml/min eGFR 56.95 BUN/Creatinine Ratio 14.4 (10-20) Glucose 186 H (70-99(Fasting)) mg/dl Calcium 9.0 (8.6-10.3) mg/dl Magnesium 1.5 L (1.7-2.4) mg/dl Total Bilirubin 0.3 (0.2-1.0) mg/dl AST 18 (13-39) U/L ALT 15 (7-52) U/L Alkaline Phosphatase 65 (34-104) U/L Troponin I High Sens 8.9 (0-20) pg/ml Total Protein 6.6 (6.0-8.3) gm/dl Albumin 3.7 (3.4-5.0) gm/dl Globulin 2.9 (2.5-4.0) gm/dl Albumin/Globulin Ratio 1.3 (0.9-2) SARS-CoV-2 (PCR) POSITIVE A (Negative) Influenza Type A (PCR) Negative (Neg) Influenza Type B (PCR) Negative (Neg) RSV (RT-PCR) Negative (Neg) Administered Medications Discontinued Medications Albuterol (Albut/Ipratrop 3mg/0.5mg Neb 3 Ml Vial) 3 ml NEB NOW STA; Protocol Stop: 11/11/25 21:14 Last Admin: 11/11/25 21:24 Dose: 3 ml Documented By: wang Albuterol (Albuterol Hfa 8 Gm Inhaler) 1 puffs INH QIDR ISAEL Stop: 12/12/25 06:59 Last Admin: 11/12/25 09:17 Dose: 1 puffs Documented By: ELENA Enoxaparin Sodium (Enoxaparin Inj 40 Mg/0.4 Ml Syr) 40 mg SQ NOW ONE Stop: 11/12/25 00:12 Last Admin: 11/12/25 00:15 Dose: Not Given Documented By: wang Fluticasone/Vilanterol (Fluticasone/Vilanterol 100/25mcg 14 Puffs/Inhaler) 1 puffs INH DAILY ISAEL; Protocol Stop: 12/12/25 08:59 Last Admin: 11/12/25 09:20 Dose: 1 puffs Documented By: ELENA Gabapentin (Gabapentin 300 Mg Cap) 300 mg PO BID@0800,1200 [facility] Stop: 12/12/25 07:59 Last Admin: 11/12/25 09:18 Dose: 300 mg Documented By: ELENA Guaifenesin (Guaifenesin 600 Mg Tabcr) 600 mg PO Q12 ISAEL Stop: 12/12/25 08:59 Last Admin: 11/12/25 09:18 Dose: 600 mg Documented By: ELENA Sodium Chloride (Nss) 1,000 mls @ 999 mls/hr IV .Q1H1M ONE Stop: 11/11/25 22:13 Last Infusion: 11/11/25 21:45 Dose: Infused Documented By: wang Admin: 11/11/25 21:26 Dose: 999 mls/hr Documented By: wang Acetaminophen (Ofirmev) 1,000 mg in 100 mls @ 400 mls/hr IV NOW STA Stop: 11/11/25 21:27 Last Infusion: 11/11/25 21:45 Dose: Infused Documented By: wang Admin: 11/11/25 21:26 Dose: 400 mls/hr Documented By: wang Magnesium Sulfate/Dextrose (Magnesium Sulfate / D5w) 1 gm in 100 mls @ 100 mls/hr IV NOW STA Stop: 11/11/25 23:17 Last Infusion: 11/11/25 23:17 Dose: Infused Documented By: wang Admin: 11/11/25 22:39 Dose: 100 mls/hr Documented By: wang Sodium Chloride (Nss) 500 mls @ 999 mls/hr IV .Q31M ONE Stop: 11/11/25 22:47 Last Infusion: 11/11/25 23:15 Dose: Infused Documented By: wang Admin: 11/11/25 22:40 Dose: 999 mls/hr Documented By: wang Methylprednisolone 40 mg/ (Syringe) 0.64 mls @ 1.5 mls/min IV Q12H ISAEL Stop: 12/11/25 23:58 Last Admin: 11/12/25 00:14 Dose: Not Given Documented By: wang Insulin Aspart (Insulin Aspart Per Unit Charge) 0 units SC ACHS ISAEL Stop: 12/12/25 07:29 Last Admin: 11/12/25 08:44 Dose: 2 units Documented By: ELENA Co-signed By: TATE Insulin Glargine (Lantus Per Unit Charge) 8 units SQ BID ISAEL Stop: 12/12/25 08:59 Last Admin: 11/12/25 09:20 Dose: 8 units Documented By: ELENA Co-signed By: SHAYLEE Ipratropium [place] (Ipratropium [place] Hfa Inhaler) 1 puffs INH QIDR ISAEL Stop: 12/12/25 06:59 Last Admin: 11/12/25 08:19 Dose: 1 puffs Documented By: SAL Methylprednisolone (Methylprednisolone 125 Mg/2 Ml Vial) 125 mg IV NOW STA Stop: 11/11/25 22:20 Last Admin: 11/11/25 22:39 Dose: 125 mg Documented By: wang Miscellaneous (Home Med Administration ) 1 each N/A NOW ONE Stop: 11/12/25 00:00 Last Admin: 11/12/25 00:13 Dose: Not Given Documented By: wang Pantoprazole Sodium (Pantoprazole 40 Mg Tab) 40 mg PO BID ISAEL Stop: 12/12/25 08:59 Last Admin: 11/12/25 09:18 Dose: 40 mg Documented By: ELENA Imaging Data Radiologist's Impression: Chest X-Ray 11/11/25 20:55 Exam(s): XR CXR 1 VIEW EXAM: XR Chest, 1 View CLINICAL HISTORY: Reason for exam: Dyspnea. TECHNIQUE: Frontal view of the chest. COMPARISON: 03/22/2025 FINDINGS: Lungs: No consolidation. Pleural space: No significant pleural effusion. No pneumothorax. Heart: No cardiomegaly or pulmonary vascular congestion. Bones/joints: Bilateral reverse shoulder arthroplasties. No acute osseous findings. IMPRESSION: No acute findings in the chest. Electronically signed by: Roselyn Levin M.D. 11/12/25 00:11 AM Discharge Plan Visit Data Chief Complaint: Flu Like Symptoms Stated Complaint: COVID + /, WORSENING FEVER, LOW O2 ED Provider: Maxwell Luo Discharge Problem: COVID-19, COPD (chronic obstructive pulmonary disease), Weakness, Acute dyspnea Patient Disposition: Admitted As Inpatient Condition: Good Discharge Instructions Interventions: ED Discharge Assessment Last Done: 11/12/25 00:00 Discharge Problem: COPD (chronic obstructive pulmonary disease) Qualifiers: COPD type: unspecified COPD Qualified Code(s): J44.9 - Chronic obstructive pulmonary disease, unspecified
[2025-11-11] MEDS: ALBUT/IPRATROP 3MG/0.5MG NEB 3 ML VIAL NEB STA (21:24)
[2025-11-11] MEDS: SODIUM CHLORIDE 0.9% 1,000 ML IV ONE (21:26)
[2025-11-11] MEDS: ACETAMINOPHEN 1,000 MG/100 ML VIAL IV STA (21:26)
[2025-11-11 21:37] LABS: Hematocrit (blood only) 35.9 % (42.0-52.0); Hemoglobin 11.6 g/dL (14.0-18.0); Immature Granulocytes # (auto) 0.02 K/uL (0.01-0.20); Immature Granulocytes % (auto) 0.3 %; Mean Corpuscular Hemoglobin 26.4 pg (25.0-34.0); Mean Corpuscular Volume 81.6 fL (80.0-100.0); Platelet Count 201 K/uL (130-400); RDW Standard Deviation 44.5 fL (36.4-46.3); Red Blood Count 4.40 M/uL (4.70-6.10); White Blood Count 6.79 K/ul (4.8-10.8)
[2025-11-11 21:52] LABS: Alanine Aminotransferase 15.0 U/L (7-52); Albumin Globulin Ratio 1.3 (0.9-2); Albumin Level 3.7 gm/dl (3.4-5.0); Alkaline Phosphatase 65.0 U/L (34-104); Anion Gap 8.0 (3-11); Bilirubin,Total 0.3 mg/dl (0.2-1.0); Blood Urea Nitrogen 19.0 mg/dl (6-23); Calcium 9.0 mg/dl (8.6-10.3); Carbon Dioxide 25.0 mmol/L (21-32); Chloride 103.0 mmol/L (98-107); Creatinine Clr Calc Pharmacy 54.7 ml/min; Globulin 2.9 gm/dl (2.5-4.0); Glucose 186.0 mg/dl (70-99(Fasting)); Magnesium 1.5 mg/dl (1.7-2.4); Potassium 3.9 mmol/L (3.5-5.1); Sodium 136.0 mmol/L (136-145); Total Protein 6.6 gm/dl (6.0-8.3)
[2025-11-11] MEDS: MAGNESIUM SULFATE / D5W 1 GM/100 ML BAG IV STA (22:39)
[2025-11-11] MEDS: SODIUM CHLORIDE 0.9% 500 ML IV ONE (22:40)
[2025-11-11 22:47] LABS: Influenza A virus by PCR Negative (Neg); Influenza B virus by PCR Negative (Neg); SARS CoV2 RNA(COVID-19) Ceph POSITIVE (Negative)
--- NOTE | 2025-11-11 22:49 | History & Physical Report ---
Date of Service November 11, 2025 Assessment & Plan (1) COVID-19: (2) COPD, group B, by GOLD 2013 classification: (3) Hypertension: (4) Diabetes mellitus type 2 in nonobese: (5) Acid reflux disease: Plan 75yo male with history of HTN, DM and COPD presenting with two days of fever, chills, cough and SOB/MANCIA. Patient tested POSITIVE for Covid-19 yesterday and again today in the ER. Saturations borderline low 88-94% noted in the ER. #Covid-19 with hypoxia - saturations 88% noted briefly in the ER. Patient endorses SOB. No use of home O2 -Admit to medical with telemetry -Maintain isolation precautions -Supplemental O2 as needed -Continue steroids - Solumedrol 40mg IV BID -Patient may benefit from home Paxlovid - family at bedside will reach out to his PCP in AM -Tylenol, Zofran, Mucinex -Lovenox 40mg daily #COPD - patient with SOB, scattered wheezing on exam -Combivent scheduled and Albuterol PRN -Continue home Breo -Solumedrol 40mg IV BID -Mucinex BID -Flutter valve and incentive spirometry #GERD -Protonix 40mg po BID #Diabetes - hold oral medications -Lantus 8u BID -ISS #Hyperlipidemia -Atorvastatin 20mg po daily History of Present Illness Chief Complaint: flu-like symptoms Primary Care Provider: Flakito Mayo DO Pablo Madison is a 75yo male with history of DM, HTN, HLP and COPD presenting with flu-like symptoms that began 48 hours ago. Patient reports fever, chills, body aches as well as SOB and MANCIA. He has had a cough productive for green sputum at times and reports an increase in wheezing over the last two days. Denies chest pain, palpitations, nausea, vomiting, diarrhea. Patient took a home Covid-19 test yesterday and it was POSITIVE. In the ER patient with borderline hypoxia - 88-94% during my encounter. No use of home O2 ER Course: Tylenol Magnesium Solumedrol Allergies Allergy/AdvReac Type Severity Reaction Status Date / Time Penicillins Allergy Severe throat Verified 09/09/25 11:08 swelling, hives fenofibrate Allergy Intermediate HIVES Verified 09/09/25 11:08 lisinopril AdvReac Mild cough Verified 09/09/25 11:08 Home Medications Medication Instructions Recorded Confirmed Type aspirin 81 mg tablet,delayed 81 mg PO HS 11/20/18 09/09/25 History release (Facundo Low Dose Aspirin) omega-3 acid ethyl esters 1 gram 1 cap PO HS 05/04/19 09/09/25 History capsule (Lovaza) calcium carbonate (Calcium 600) 600 mg PO HS 01/21/20 09/09/25 History albuterol sulfate 90 mcg/actuation 2 puff inhalation Q6H PRN 09/15/21 09/09/25 Rx aerosol inhaler (Ventolin HFA) shortness of breath or wheezing #8.5 grams Auto Titrating CPAP #1 ea 03/13/24 09/09/25 Rx CPAP Supplies #1 ea 03/13/24 09/09/25 Rx trazodone 50 mg tablet 50 mg PO HS 08/23/24 09/09/25 History polyethylene glycol 3350 17 gram 17 g PO DAILY PRN Constipation 09/30/24 09/09/25 History oral powder packet (Miralax) metformin 500 mg tablet 1,000 mg (2 x 500 mg) PO BID #360 02/10/25 09/09/25 Rx tabs cyanocobalamin (vitamin B-12) 1,000 mcg IM MONTHLY #1 ea 04/05/25 09/09/25 Rx 1,000 mcg/mL injection kit budesonide-formoterol HFA 80 2 puff inhalation BID #10.2 grams 04/13/25 09/09/25 Rx mcg-4.5 mcg/actuation aerosol inhaler (Symbicort) omeprazole 40 mg capsule,delayed 40 mg PO BID #180 caps 05/06/25 09/09/25 Rx release gabapentin 300 mg capsule See Rx Instructions .Route 05/13/25 09/09/25 Rx .COMPLEX #360 caps sitagliptin phosphate 100 mg 100 mg PO QAM #90 tabs 06/30/25 09/09/25 Rx tablet (Januvia) atorvastatin 20 mg tablet 20 mg PO HS #90 tabs 08/12/25 09/09/25 Rx chlorthalidone 25 mg tablet 12.5 mg (1/2 x 25 mg) PO HS #90 08/12/25 09/09/25 Rx tabs mirtazapine 7.5 mg tablet 7.5 mg PO HS #90 tabs 08/18/25 09/09/25 Rx bupropion HCl 300 mg 24 hr tablet, 300 mg PO QAM #90 tabs 09/07/25 09/09/25 Rx extended release sildenafil 25 mg tablet 25 mg PO DAILY PRN sexual activity 09/07/25 09/09/25 Rx #90 tabs losartan 25 mg tablet (Cozaar) 25 mg PO QAM #90 tabs 09/08/25 09/09/25 Rx clindamycin HCl 300 mg capsule 300 mg PO ONCE Dental prophylaxis 10/06/25 Rx #2 caps syringe with needle, safety 3 mL #5 ea 10/25/25 Rx 25 gauge x 5/8" (BD Integra Syringe) Past Med/Surg History Problem List (Updated 11/12/25 @ 01:06 by Terri He DO) COVID-19 COPD, group B, by GOLD 2013 classification Hypertension (Acute) controlled, stable per pt Diabetes mellitus type 2 in nonobese Diabetic neuropathy Cough variant asthma Follows with pulm- minimal symptoms Aftercare following left shoulder joint replacement surgery Status post reverse total arthroplasty of left shoulder Erectile dysfunction CYNTHIA (obstructive sleep apnea) MDD (major depressive disorder), single episode, moderate Anemia Esophageal dysphagia EGD 11/2019 Acid reflux disease (Acute) controlled, stable per pt B12 deficiency Medical History History of colon polyps Mild emphysema well controlled; last rescue inhaler use 3 days ago; pt reports average use of 1-2 times/week Arthritis History of esophageal stricture stretching in past; no dysphagia currently Diabetes mellitus, type 2 Anxiety and depression Peripheral neuropathy noted to feet Sleep apnea no device used History of malignant neuroendocrine tumor No evidence of recurrence on CT chest from August 2024. Wedge resection of the right lower lobe in 2015. Continue with yearly lung cancer screening with next low-dose Gagnon's esophagus EGD 09/2024 , Followed by Dr. ANEL Case Hyperlipidemia History of kidney stones Mild emphysema Hypertension Premature atrial beats wore heart monitor, no further treatment needed per pt>no cards Acid reflux well controlled and stable Obesity (BMI 30-39.9) Adrenal nodule - indeterminate 2.4 cm left adrenal nodule is similar to previous (present since at least 2017 per records) Allergic rhinitis Surgical History Status post reverse total replacement of right shoulder (~04/2023) Hx laparoscopic cholecystectomy (08/23/24) Laparoscopic Cholecystectomy(Not Applicable) - Carlitos Macias MD, FACS History of bronchoscopy Dr. Rich History of esophagogastroduodenoscopy (EGD) History of open reduction and internal fixation (ORIF) procedure left wrist--+removal hardware History of total left knee replacement (TKR) History of total right knee replacement (TKR) History of lithotripsy History of colonoscopy 04/2022 Repeat 5 yrs History of tooth extraction Status post biopsy of thyroid gland benign nodule History of lung surgery 2014 right lung--lower lobe wedge resection Family History Mother Cardiac disorder Diabetes Myocardial infarction Father Diabetes Myocardial infarction Brother Stroke Aunt Breast cancer Other No family history of adverse response to anesthesia Denies family history of Ovarian cancer Prostate cancer Lung cancer Colorectal cancer Social History Smoking Status: Former smoker Tobacco Type: Cigarettes Age Started Using Tobacco: 18; Age Quit Using Tobacco: 29; packs per day: 0.5; Second Hand Exposure: No; Do You Dip or Chew Tobacco: No; Hx Alcohol Use: No Hx Substance Use: No Preferred Language: Italian Communication Ability: Effective Visual Impairment: Limited Hearing Ability: Use of Hearing Aid Portfolio Administrator Required: No Beliefs That Will Affect Care: None marital status: Current Living Situation: Spouse Current Living Situation Comment: Lives with and granddaughter and great grandson current occupational status: retired How many Children do You have: 2 Feels Safe at Home: Yes Childhood Exposure to Second-Hand Smoke: Yes Diet: regular caffeine: Yes (3 cups of coffee daily ) during the past year weight has: increased > 10 lbs Dental Care, Regularly: Yes Physical Activity Frequency: Daily Seatbelt Use: always Sunscreen Use: Yes Assistive Devices: Glasses and Hearing Aid - Bilateral Review of Systems Review of Systems: All systems reviewed & are unremarkable except as noted in HPI & below Physical Exam Physical Exam: General: patient resting comfortably, NAD, ill in appearance, AA&O x 4 Skin: warm, dry, intact, no rashes or lesions HEENT: NC/AT, PERRL, EOMI, anicteric sclera, conjunctiva without injection, external ear normal to inspection and nontender, nares patent, moist mucus membranes, dentition intact, no oropharyngeal lesions, neck supple, trachea midline, no LAD, no thyromegaly, no JVD Heart: +S1/S2, regular, no m/r/g Lungs: equal air entry bilaterally, no rales/rhonchi, scattered end-expiratory wheezing Abd: +BS, soft, NT/ND, no masses/organomegaly/ascites Ext: warm, 2+ pulses in UE/LE bilaterally, no clubbing/cyanosis or edema Neuro: nonfocal, patient AA&O x 4, speech intact, no facial droop, moving all extremities on command with equal strength 5/5 Results & Data Results & Data Vital Signs (Past 12 Hours) Vital Signs Temp Pulse Pulse Resp BP BP Pulse Ox 11/11/25 22:43 94 11/11/25 22:26 97 H 16 98/64 L 93 11/11/25 20:55 117 H 94 11/11/25 20:33 123 H 11/11/25 20:27 37.4 C 128 H 22 142/80 H 93 O2 Del Method O2 Flow Rate 11/11/25 22:43 Nasal Cannula 3 11/11/25 22:26 Room Air 11/11/25 20:55 Room Air 11/11/25 20:33 11/11/25 20:27 Room Air Laboratory Results Laboratory Results WBC 6.79 K/ul (4.8-10.8) 11/11/25 21:19 RBC 4.40 M/uL (4.70-6.10) L 11/11/25 21:19 Hgb 11.6 g/dL (14.0-18.0) L 11/11/25 21:19 Hct 35.9 % (42.0-52.0) L 11/11/25 21:19 MCV 81.6 fL (80.0-100.0) 11/11/25 21:19 MCH 26.4 pg (25.0-34.0) 11/11/25 21:19 MCHC 32.3 g/dL (32.0-36.0) 11/11/25 21:19 RDW Std Deviation 44.5 fL (36.4-46.3) 11/11/25 21:19 RDW Coeff of Abelardo 15.0 % (11.5-14.5) H 11/11/25 21:19 Plt Count 201 K/uL (130-400) 11/11/25 21:19 MPV 8.9 fL (9.4-12.4) L 11/11/25 21:19 Immature Gran % (Auto) 0.3 % 11/11/25 21: Neut % (Auto) 75.2 % 11/11/25 21:19 Lymph % (Auto) 11.0 % 11/11/25 21:19 [place] % (Auto) 13.0 % 11/11/25 21: Eos % (Auto) 0.4 % 11/11/25: Baso % (Auto) 0.1 % 11/11/25: Neut # (Auto) 5.10 K/uL (1.40-6.50) 11/11/25 21: Lymph # (Auto) 0.75 K/uL (1.20-3.40) L 11/11/25 21:19 [place] # (Auto) 0.88 K/uL (0.11-0.59) H 11/11/25 21:19 Eos # (Auto) 0.03 K/uL (0.00-0.50) 11/11/25 21:19 Baso # (Auto) 0.01 K/uL (0.00-0.20) 11/11/25 21: Immature Gran # (Auto) 0.02 K/uL (0.01-0.20) 11/11/25 21:19 Sodium 136 mmol/L (136-145) 11/11/25 21:19 Potassium 3.9 mmol/L (3.5-5.1) 11/11/25 21: Chloride 103 mmol/L (98-107) 11/11/25 21:19 Carbon Dioxide 25 mmol/L (21-32) 11/11/25 21:19 Anion Gap 8 (3-11) 11/11/25 21:19 BUN 19 mg/dl (6-23) 11/11/25 21: Creatinine 1.32 mg/dl (0.6-1.4) 11/11/25 21:19 Est Cr Clr Drug Dosing 54.7 ml/min 11/11/25 21:19 eGFR 56.95 11/11/25 21:19 BUN/Creatinine Ratio 14.4 (10-20) 11/11/25 21:19 Glucose 186 mg/dl (70-99(Fasting)) H 11/11/25 21:19 Calcium 9.0 mg/dl (8.6-10.3) 11/11/25 21:19 Magnesium 1.5 mg/dl (1.7-2.4) L 11/11/25 21:19 Total Bilirubin 0.3 mg/dl (0.2-1.0) 11/11/25 21:19 AST 18 U/L (13-39) 11/11/25 21:19 ALT 15 U/L (7-52) 11/11/25 21:19 Alkaline Phosphatase 65 U/L (34-104) 11/11/25 21:19 Troponin I High Sens 8.9 pg/ml (0-20) 11/11/25 21:19 Total Protein 6.6 gm/dl (6.0-8.3) 11/11/25 21:19 Albumin 3.7 gm/dl (3.4-5.0) 11/11/25 21:19 Globulin 2.9 gm/dl (2.5-4.0) 11/11/25 21:19 Albumin/Globulin Ratio 1.3 (0.9-2) 11/11/25 21:19 SARS-CoV-2 (PCR) POSITIVE (Negative) A 11/11/25 22:00 Influenza Type A (PCR) Negative (Neg) 11/11/25 22:00 Influenza Type B (PCR) Negative (Neg) 11/11/25 22:00 RSV (RT-PCR) Negative (Neg) 11/11/25 22:00 Impressions Chest X-Ray 11/11/25 20:55 Exam(s): XR CXR 1 VIEW EXAM: XR Chest, 1 View CLINICAL HISTORY: Reason for exam: Dyspnea. TECHNIQUE: Frontal view of the chest. COMPARISON: 03/22/2025 FINDINGS: Lungs: No consolidation. Pleural space: No significant pleural effusion. No pneumothorax. Heart: No cardiomegaly or pulmonary vascular congestion. Bones/joints: Bilateral reverse shoulder arthroplasties. No acute osseous findings. IMPRESSION: No acute findings in the chest. Electronically signed by: Roselyn Levin M.D. 11/12/25 00:11 AM Code Status & VTE Plan VTE Prophylaxis Plan VTE Prophylaxis will be ordered: Yes PG Care Time/CCT Total # of Minutes Spent Total Time Spent with Patient: Total time spent is greater than 50% in coordination of care (as documented) at patient's floor/unit and/or counseling patient: Coding Level of Care Code 48160 INT INP/OBS CARE 3/75MIN Diagnoses COVID-19 U07.1 COPD, group B, by GOLD 2013 classification J44.9 Hypertension I10 Diabetes mellitus type 2 in nonobese E11.9 Acid reflux disease K21.9
[2025-11-11] MEDS ORDERED: GLUCOSE 40% GEL 15 GM TUBE PO PRN (23:59)
[2025-11-11] MEDS ORDERED: CARBOHYDRATES FOR HYPOGLYCEMIA PO PRN (23:59)
[2025-11-11] MEDS ORDERED: MELATONIN 3 MG TAB PO PRN (23:59)
[2025-11-11] MEDS ORDERED: DOCUSATE SODIUM 100 MG CAP PO PRN (23:59)
[2025-11-11] MEDS ORDERED: ALBUTEROL HFA 8 GM INHALER INH PRN (23:59)
[2025-11-11] MEDS ORDERED: ONDANSETRON INJ 2 MG/ML 2 ML VIAL IV PRN (23:59)
[2025-11-11] MEDS ORDERED: GLUCOSE 10 TAB/TUBE PO PRN (23:59)
[2025-11-11] MEDS ORDERED: ACETAMINOPHEN 325 MG TAB PO PRN (23:59)
[2025-11-11] MEDS ORDERED: GLUCAGON FOR INJ 1 MG VIAL SQ PRN (23:59)
[2025-11-11] MEDS ORDERED: DEXTROSE 50% 50 ML SYRINGE IV PRN (23:59)
--- NOTE | 2025-11-12 00:12 | XRay Report ---
Exam(s): XR CXR 1 VIEW EXAM: XR Chest, 1 View CLINICAL HISTORY: Reason for exam: Dyspnea. TECHNIQUE: Frontal view of the chest. COMPARISON: 03/22/2025 FINDINGS: Lungs: No consolidation. Pleural space: No significant pleural effusion. No pneumothorax. Heart: No cardiomegaly or pulmonary vascular congestion. Bones/joints: Bilateral reverse shoulder arthroplasties. No acute osseous findings. IMPRESSION: No acute findings in the chest. Electronically signed by: Roselyn Levin M.D. 11/12/25 00:11 AM
[2025-11-12] MEDS: ENOXAPARIN INJ 40 MG/0.4 ML SYR SQ ONE (00:15)
[2025-11-12 05:14] LABS: Anion Gap 7.0 (3-11); Blood Urea Nitrogen 17.0 mg/dl (6-23); Calcium 8.5 mg/dl (8.6-10.3); Carbon Dioxide 24.0 mmol/L (21-32); Chloride 104.0 mmol/L (98-107); Creatinine Clr Calc Pharmacy 62.8 ml/min; Glucose 220.0 mg/dl (70-99(Fasting)); Magnesium 2.0 mg/dl (1.7-2.4); Potassium 4.3 mmol/L (3.5-5.1); Sodium 135.0 mmol/L (136-145)
[2025-11-12 05:40] LABS: Hematocrit (blood only) 37.0 % (42.0-52.0); Hemoglobin 11.4 g/dL (14.0-18.0); Mean Corpuscular Hemoglobin 26.6 pg (25.0-34.0); Mean Corpuscular Volume 86.4 fL (80.0-100.0); Platelet Count 180 K/uL (130-400); RDW Standard Deviation 48.1 fL (36.4-46.3); Red Blood Count 4.28 M/uL (4.70-6.10); White Blood Count 5.65 K/ul (4.8-10.8)
[2025-11-12] MEDS: IPRATROPIUM BROMIDE HFA INHALER INH SCH (08:19)
[2025-11-12] MEDS: INSULIN ASPART PER UNIT CHARGE SC SCH (08:44)
[2025-11-12] MEDS ORDERED: IPRATROPIUM BROMIDE/ALBUTEROL respimat INH INH SCH (09:00)
[2025-11-12] MEDS: ALBUTEROL HFA 8 GM INHALER INH SCH (09:17)
[2025-11-12] MEDS: GABAPENTIN 300 MG CAP PO SCH (09:18)
[2025-11-12] MEDS: guaiFENesin 600 MG TABCR PO SCH (09:18)
[2025-11-12] MEDS: FLUTICASONE/VILANTEROL 100/25MCG 14 PUFFS/INHALER INH SCH (09:20)
[2025-11-12] MEDS: LANTUS PER UNIT CHARGE SQ SCH (09:20)
--- NOTE | 2025-11-12 09:22 | Discharge Summary ---
Discharge Summary Date of Service November 12, 2025 Principal Dx & Hospital Course #1 = Principal Diagnosis (1) COVID-19: (2) COPD, group B, by GOLD 2013 classification: (3) Hypertension: (4) Diabetes mellitus type 2 in nonobese: (5) Acid reflux disease: Plan #Covid-19 with hypoxia - 75 y/o M w/ PMHx of HTN, DM, and COPD who presented to the ED w/ two days of fever, chills, cough and SOB/MANCIA. While in the ED, pt was COVID+. CXR at that time demonstrated no acute finding's in the chest. Pt was O2 Sat was 88-94% while in the ED and he was admitted for further evaluation and care. Pt was provided w/ Solumedrol IV; pt noted that this helped with his Sx significantly and is no longer SOB. Pt may continue supportive care at home to include increased fluids, intranasal saline sprays, and Mucinex. Pt should take Prednisone 10 TID x2 days, 10 BID x2 days, then 10 daily x2 days. Pt should follow-up with PCP within 1 week of discharge for follow-up appointment. #COPD - Patient w/ SOB and scattered wheezing on initial exam which resolved overnight; Please continue Albuterol and Breo as prescribed. #GERD - No acute concerns, continue Protonix 40mg po BID #Diabetes - No acute concerns, please continue home regimen #Hyperlipidemia - No acute concerns, please continue Atorvastatin 20mg po daily Dispo: Home, Self-care Admission HPI Per Admitting Provider Pablo Madison is a 75yo male with history of DM, HTN, HLP and COPD presenting with flu-like symptoms that began 48 hours ago. Patient reports fever, chills, body aches as well as SOB and MANCIA. He has had a cough productive for green sputum at times and reports an increase in wheezing over the last two days. Denies chest pain, palpitations, nausea, vomiting, diarrhea. Patient took a home Covid-19 test yesterday and it was POSITIVE. In the ER patient with borderline hypoxia - 88-94% during my encounter. No use of home O2 ER Course: Tylenol Magnesium Solumedrol Discharge Exam General: Pt is a 75 y/o overweight M in NAD in bed. VS: reviewed, remarkable - BP 153/94 Skin: Warm and dry; no lesions or ulcerations Respiratory: CTA bilat, no adventitious sounds noted. Chest expansion is full and symmetrical Cardio: RRR no murmurs Abdomen: Round, normoactive BS x4, nontender to palpation MSK: FROM of extremities, no deformities Extremities: no edema Neuro: A&Ox4, cooperative Discharge Plan Discharge Items Patient Disposition: Home - Self-Care Reason For Visit: COVID-19, HYPOXIA Discharge Diagnosis: COVID-19 Non-emergency contact: Primary Care Provider Call non-emergency contact if: you have any medication questions and your symptoms worsen Follow-up/Referrals: Flakito Mayo, [Primary Care Provider] - (Follow-up within 1 week of discharge) Diet: Carb Consistent or DM2 Addtl Attending Provider Instructions: Hospital Course: You were admitted to the hospital for COVID-19 with concurrent hypoxia. While you were in the ED, you tested positive for COVID. A CXR was additionally done and did not reveal the presence of any acute processed within the chest. Additinoally your O2 saturation level was 88-94% while you were in the ED and you were admitted for further evaluation and care. Physical exam on admission noted some wheezing, which resolved overnight, likely after receiving doses of IV steroids. You are being discharged home. Discharge Plan: -Please follow-up with your PCP within one week of discharge -Please continue to Hydrate with fluids such as water and gatorade -Supportive Care such as Hot Tea, Lozenges, Mucinex, and Intranasal saline sprays can be used to help with sx -A prednisone taper will be sent to your Pharmacy, please take this medication as prescribed -If you have any questions or concerns, please contact your PCP Medications: Your medication list has been reviewed and reconciled upon discharge to ensure accuracy and continuity of care. An updated list of all your medications is included with your hospital discharge paperwork. Please review this list closely, and make note of any changes. We sent a new medication called Prednisone to your pharmacy. Please take 10mg 3 times per day x2 days, 10mg 2 times per day x2 days, then 10mg daily x2 days. Take your medications as instructed; do not skip a dose of your medicines. Make sure all of your doctors know every medicine you are taking (including jlej-lvr-vlppjyn medicines, vitamins, and supplements). Call your primary care provider before taking any new medicines (including over- the-counter medicines, vitamins, and supplements), because some of these may interact with your current medications, or may make your symptoms worse. Tell your primary care provider if you cannot afford your medications. Activity: You can do normal everyday activities as your body allows. Take rest breaks if you feel tired. Do not overexert. Stop activity if you have pain, shortness of breath or feel dizzy. Follow-up appointments: Make an appointment with your primary care physician within one week of discharge. A copy of this summary will be sent to them. Every time you see your primary care physician, or any other doctor, bring your medication list, and a list of questions. CONTACT YOUR PRIMARY CARE PROVIDER if you experience any of the following: Shortness of breath or difficulty breathing Fevers or chills Feeling tired with normal activity or experiencing dizziness or fainting Difficulty following your treatment plan, or difficulty taking medications CALL 911 OR GO TO THE EMERGENCY DEPARTMENT if you experience any of the following: Severe abdominal pain or nausea/vomiting Severe chest pain, or chest pain that radiates (moves) to your jaw or arm Sudden, severe shortness of breath or difficulty breathing Thank you for allowing us to participate in your care. Pending Studies at Discharge: No Stand-Alone Forms: My [facility] Humagade, Smoking Cessation Medications and DC Order Prescriptions: New prednisone 10 mg tablet 10 mg PO DIRECTED Qty: 12 0RF Rx Instructions: 10mg TID x2 days, 10mg BID x2 days, then 10mg daily x2 days. Continued albuterol sulfate [Ventolin HFA] 90 mcg/actuation HFA aerosol inhaler 2 puff INH Q6H PRN (Reason: shortness of breath or wheezing) Qty: 8.5 2RF metformin 500 mg tablet 1,000 mg PO BID Qty: 360 3RF cyanocobalamin (vitamin B-12) 1,000 mcg/mL kit 1,000 mcg IM MONTHLY Qty: 1 12RF budesonide-formoterol [Symbicort] 80-4.5 mcg/actuation HFA aerosol inhaler 2 puff inhalation BID Qty: 10.2 2RF omeprazole 40 mg capsule,delayed release(DR/EC) 40 mg PO BID Qty: 180 3RF Januvia 100 mg tablet 100 mg PO QAM Qty: 90 3RF Rx Instructions: TAKE 1 TABLET EVERY MORNING chlorthalidone 25 mg tablet 12.5 mg PO HS Qty: 90 1RF atorvastatin 20 mg tablet 20 mg PO HS Qty: 90 3RF Rx Instructions: TAKE 1 TABLET AT BEDTIME mirtazapine 7.5 mg tablet 7.5 mg PO HS Qty: 90 1RF sildenafil 25 mg tablet 25 mg PO DAILY PRN (Reason: sexual activity) Qty: 90 0RF Rx Instructions: administer 30 minutes to 4 hours before activity bupropion HCl 300 mg tablet extended release 24 hr 300 mg PO QAM Qty: 90 1RF losartan [Cozaar] 25 mg tablet 25 mg PO QAM Qty: 90 3RF (DME) BD Integra Syringe 3 mL 25 gauge x 5/8" syringe See Rx Instructions .Route Qty: 5 3RF Rx Instructions: injecting monthly Vit B12 injection calcium carbonate [Calcium 600] 600 mg calcium (1,500 mg) tablet 600 mg PO HS omega-3 acid ethyl esters [Lovaza] 1 gram capsule 1 cap PO HS (DME) CPAP Supplies Misc See Rx Instructions .Route Qty: 1 0RF Rx Instructions: As directed- all supplies (DME) Auto Titrating CPAP Misc See Rx Instructions .Route Qty: 1 0RF Rx Instructions: 5-15 cmH20 auto titrating humidified aspirin [Facundo Low Dose Aspirin] 81 mg Tablet,Delayed Release (Dr/Ec) 81 mg PO HS gabapentin 300 mg capsule 600 mg PO HS gabapentin 300 mg capsule 300 mg PO BID clindamycin HCl 300 mg capsule 300 mg PO ONCE PRN (Reason: Dental prophylaxis) Rx Instructions: Take two capsules one hour prior to dental visit. polyethylene glycol 3350 [Miralax] 17 gram powder in packet 17 g PO DAILY PRN (Reason: Constipation) Discharge Orders: Discharge Order (Routine); Ordered 11/12/25 Ordered By: Kendal Selby/Other Patient Handouts: 2019 Novel Coronavirus Admission Data Admit Date/Time: 11/11/25 22:48 Attending Provider: Naldo Posey Admit Provider: Terri He Primary Care Provider: Flakito Mayo Other Providers: Terri He Hospital Stay Data Consultations 11/11/25 22:21 ED Decision to Admit Stat Diagnostic Imagining Performed Chest X-Ray 11/11/25 20:55 Exam(s): XR CXR 1 VIEW EXAM: XR Chest, 1 View CLINICAL HISTORY: Reason for exam: Dyspnea. TECHNIQUE: Frontal view of the chest. COMPARISON: 03/22/2025 FINDINGS: Lungs: No consolidation. Pleural space: No significant pleural effusion. No pneumothorax. Heart: No cardiomegaly or pulmonary vascular congestion. Bones/joints: Bilateral reverse shoulder arthroplasties. No acute osseous findings. IMPRESSION: No acute findings in the chest. Electronically signed by: Roselyn Levin M.D. 11/12/25 00:11 AM Discharge Instructions Given to Patient (Per Discharging Provider) Hospital Course: You were admitted to the hospital for COVID-19 with concurrent hypoxia. While you were in the ED, you tested positive for COVID. A CXR was additionally done and did not reveal the presence of any acute processed within the chest. Additinoally your O2 saturation level was 88-94% while you were in the ED and you were admitted for further evaluation and care. Physical exam on admission noted some wheezing, which resolved overnight, likely after receiving doses of IV steroids. You are being discharged home. Discharge Plan: -Please follow-up with your PCP within one week of discharge -Please continue to Hydrate with fluids such as water and gatorade -Supportive Care such as Hot Tea, Lozenges, Mucinex, and Intranasal saline sprays can be used to help with sx -A prednisone taper will be sent to your Pharmacy, please take this medication as prescribed -If you have any questions or concerns, please contact your PCP Medications: Your medication list has been reviewed and reconciled upon discharge to ensure accuracy and continuity of care. An updated list of all your medications is included with your hospital discharge paperwork. Please review this list closely, and make note of any changes. We sent a new medication called Prednisone to your pharmacy. Please take 10mg 3 times per day x2 days, 10mg 2 times per day x2 days, then 10mg daily x2 days. Take your medications as instructed; do not skip a dose of your medicines. Make sure all of your doctors know every medicine you are taking (including esnj-rky-hnelxxp medicines, vitamins, and supplements). Call your primary care provider before taking any new medicines (including over- the-counter medicines, vitamins, and supplements), because some of these may interact with your current medications, or may make your symptoms worse. Tell your primary care provider if you cannot afford your medications. Activity: You can do normal everyday activities as your body allows. Take rest breaks if you feel tired. Do not overexert. Stop activity if you have pain, shortness of breath or feel dizzy. Follow-up appointments: Make an appointment with your primary care physician within one week of discharge. A copy of this summary will be sent to them. Every time you see your primary care physician, or any other doctor, bring your medication list, and a list of questions. CONTACT YOUR PRIMARY CARE PROVIDER if you experience any of the following: Shortness of breath or difficulty breathing Fevers or chills Feeling tired with normal activity or experiencing dizziness or fainting Difficulty following your treatment plan, or difficulty taking medications CALL 911 OR GO TO THE EMERGENCY DEPARTMENT if you experience any of the following: Severe abdominal pain or nausea/vomiting Severe chest pain, or chest pain that radiates (moves) to your jaw or arm Sudden, severe shortness of breath or difficulty breathing Thank you for allowing us to participate in your care. Supervising Physician Co-Signing Physician Notes The patient was not seen by me. Chart reviewed. Case discussed with KENN Ascencio. Agree with assessment and plan. Total Time Total Time Spent Total Time Spent (In Minutes): Time spent day of discharge 32 minutes including direct patient care, medication reconciliation, documentation, review of labs and images, and coordination of care. Coding Level of Care Code 35981 INP/OBS DISCH >30 MIN Diagnoses COVID-19 U07.1 COPD, group B, by GOLD 2013 classification J44.9 Hypertension I10 Diabetes mellitus type 2 in nonobese E11.9 Acid reflux disease K21.9
[2025-11-12 10:41] VITALS: BP 129/74; PULSE 83; RESP 18; O2SAT 93
--- NOTE | 2025-11-12 13:46 | Electrocardiogram Report ---
Test Reason : Blood Pressure : */* mmHG Vent. Rate : 116 BPM Atrial Rate : 116 BPM P-R Int : 192 ms QRS Dur : 106 ms QT Int : 308 ms P-R-T Axes : 56 -36 69 degrees QTcB Int : 428 ms Sinus tachycardia Left axis deviation Incomplete right bundle branch block Possible Inferior infarct , age undetermined Abnormal ECG When compared with ECG of 22-Mar-2025 11:03, Premature atrial complexes are no longer Present Vent. rate has increased by 39 bpm Borderline criteria for Inferior infarct are now Present Confirmed by Mayank Burroughs ([id number]) on 11/12/2025 1:45:41 PM Referred By: REFERRED SELF Confirmed By: Mayank Burroughs
[2025-11-12] MEDS ORDERED: MIRTAZAPINE TAB 15 MG TAB PO SCH (21:00)
[2025-11-12] MEDS ORDERED: ATORVASTATIN 20 MG TAB PO SCH (21:00)
[2025-11-12] MEDS ORDERED: ASPIRIN 81 MG ECTAB PO SCH (21:00)
== END 2025-11-12 10:43 | disposition home or self-care (01) | DRG 179 ==
LOC: ED 20:25 → EDINP 22:48 → SUATTDRO 22:48 → EDINP 11-12